=== PATIENT | female | born 1975 | race Caucasian/White ===

== ENCOUNTER 2023-02-17 07:55 | Emergency (ER) | payer OTHER, SELFPAY ==
--- NOTE | ~2023-02-17 | US_ITS ---
EXAMINATION: US VENOUS ULTRASOUND WITH DOPPLER LOWER EXTREMITY, LEFT CLINICAL INFORMATION: Left lower extremity pain and swelling. COMPARISON: None available. TECHNIQUE: Ultrasound of the deep veins is performed from the hip to the calf with compression sonography and color and pulse Doppler assessment. Spectral analysis with color-flow imaging is performed. FINDINGS: There is normal venous compression and respiratory variation and augmented flow. The visualized common femoral vein, superficial femoral vein, profunda femoral vein, popliteal vein, and the trifurcation region shows no evidence of deep venous thrombosis. There is no significant popliteal fossa cyst. US/US venous duplex LE LT IMPRESSION: No evidence for deep venous thrombosis in the visualized veins of the left lower extremity.
[2023-02-17 07:56] VITALS: BP 107/77; PULSE 72; RESP 18; TEMP 36.7; O2SAT 96; BMI 26.3
--- NOTE | 2023-02-17 08:41 | ED.EXTPRO ---
HPI - Extremity Problem General Chief complaint: Extremity Problem Stated complaint: ? L Leg Blood Clot Time Seen by Provider: 02/17/23 08:10 Source: patient Mode of arrival: ambulatory Limitations: no limitations History of Present Illness HPI Narrative: 47 yo female with hx of factor V Leiden on eliquis for 5 years has had one PE on it but reports compliance at this time presents with 1 week of LLE pain and feels her veins are bigger she wants to make sure she does not have a blood clot. SHe does not report CP/SOB. She feels she is bruising easier. Does not have narrow gauge engineer right now due to [facility] and has never heard of IVC filter. MD Complaint: extremity pain and extremity swelling Onset (ago): week(s) (1) Pain Consistency: constant Location: left and lower extremity Quality: aching Radiation: none Relieving factors: nothing Exacerbating factors: palpation Associated symptoms: other (feels she is bruising more) Context: other (clotting disorder) Related Data Allergies Allergy/AdvReac Type Severity Reaction Status Date / Time alprazolam [From XANAX] Allergy Unknown UNKNOWN Unverified 03/21/20 17:02 carisoprodol [From SOMA] Allergy Unknown UNKNOWN Unverified 03/21/20 17:02 cephalexin [From KEFLEX] Allergy Unknown UNKNOWN Unverified 03/21/20 17:02 codeine [CODEINE] Allergy Unknown HIVES Unverified 03/21/20 17:02 fluconazole [From DIFLUCAN] Allergy Unknown UNKNOWN Unverified 03/21/20 17:02 ibuprofen [IBUPROFEN] Allergy Unknown UNKNOWN Unverified 03/21/20 17:02 Iodinated Contrast Media Allergy Unknown HIVES Unverified 03/21/20 17:02 [CONTRAST, IV] ondansetron [ONDANSETRON] Allergy Unknown HIVES Unverified 03/21/20 17:02 propoxyphene Allergy Unknown ITCHING Unverified 03/21/20 17:02 [From DARVOCET-N 100] vancomycin [VANCOMYCIN] Allergy Unknown HIVES Unverified 03/21/20 17:02 Review of Systems Review of Systems: Constitutional : No Fever, No Chills Cardiovascular : No Chest Pain, No SOB Respiratory : No Cough, No Dyspnea Gastrointestinal : No Nausea, No Vomiting, No Diarrhea, No abdominal Pain Genitourinary : No Dysuria, No Hematuria Musculoskeletal : no joint pain, No Myalgias, No Joint Swelling, pos leg pain Skin : No Skin lacerations, No rash Neuro : No Weakness, No Numbness, No Loss of Consciousness, No Dizziness, No Headache Psych : No Anxiety/Panic, No Depression Heme/Lymph: pos easy bruising, no Lymphadenopathy All other systems reviewed and are negative [facility] Past Medical History Attestation statement: The following information was validated with the patient. Medical History Factor V Leiden Social History Social History (Updated 02/17/23 @ 09:00 by Diana Ma DO) Alcohol intake: never Patient Tobacco Use Status: Tobacco use Unknown Smoked in Last 30 Days: Yes Use of substances other than those prescribed or required for medical reasons: No Advance Directives: No Physical Exam Vital Signs: Vital Signs: Last Vital Signs Temp 98.1 F 02/17/23 07:56 Pulse 60 02/17/23 09:00 Resp 18 02/17/23 09:00 BP 109/72 02/17/23 09:00 Pulse Ox 97 02/17/23 09:00 O2 Del Method Room Air 02/17/23 09:00 BMI result Body Mass Index 26.3 Appearance: Alert. Oriented X3. No acute distress. Eyes: Pupils equal, round and reactive to light. ENT: Pharynx normal. Neck: Normal inspection. Neck supple. CVS: Normal heart rate and rhythm. Pulses normal. Respiratory: No respiratory distress. Breath sounds normal. Abdomen: Soft and nontender. Skin: Skin warm and dry. Normal skin color. Normal skin turgor. Extremities: L leg slightly swelling but not pitting, veins minimally engorged no sig bruising normal coloration no erythema or warmth SILT intact and both DP and PT pulses are 2+ Neuro: Oriented X 3. No motor deficit. No sensory deficit. Medical Decision Making Medical Decision Making MDM Narrative: 47 yo female with hx factor V leiden here with c/o L leg pain who is NV intact no signs of infection compliant with eliquis and worried about DVT she has no other symptoms - at this time will obtain basic labs and DVT study she has bounding pulses and compartments are soft and compressible doubt compartment syndrome and infection. Possible clot vs MSK pain. Differential Diagnosis Differential Diagnoses: The differential diagnosis associated with the presentation includes cramping, lyte abnormality, DVT Lab Data MDM Lab Attestation statement: I reviewed the patient's lab results. 02/17/23 08:40 02/17/23 08:40 Labs: Lab Results 02/17/23 02/17/23 Range/Units 08:40 08:40 WBC 8.6 (4.8-10.8) X10*3/uL RBC 4.06 L (4.20-5.50) X10*6/uL Hgb 12.6 (12.0-16.0) g/dl Hct 37.0 (37.0-47.0) % MCV 91.1 (80.0-98.0) fL MCH 31.0 (27.0-33.0) pg MCHC 34.1 (31.0-35.0) g/dl RDW 12.6 (11.0-16.0) % Plt Count 310 (160-400) X10*3/uL MPV 10.6 (9.4-12.3) fL Immature Gran % (Auto) 0.3 (0.0-0.4) % Neut % (Auto) 56.0 (45-73) % Lymph % (Auto) 35.1 (20-40) % Power % (Auto) 5.6 (2-11) % Eos % (Auto) 2.3 (0-4) % Baso % (Auto) 0.7 (0-2) % Lymph # (Auto) 3.0 (1.2-4.9) X10*3/uL Power # (Auto) 0.5 (0.1-1.2) X10*3/uL Eos # (Auto) 0.2 (0.0-0.4) X10*3/uL Baso # (Auto) 0.1 (0.0-0.2) X10*3/uL Abs Immat Gran (auto) 0.03 (0.00-0.03) X10*3/uL Absolute Neuts (auto) 4.8 (2.0-8.3) x10*3/uL Absolute Nucleated RBC 0.000 (0.0-0.012) X10*3/uL Nucleated RBC % (auto) 0.0 (0.0-0.2) /100WBC Sodium 136 (135-145) mmol/L Potassium 4.1 (3.3-5.1) mmol/L Chloride 106 (96-108) mmol/L Carbon Dioxide 24 (22-29) mmol/L Anion Gap 10 L (12-20) BUN 15 (9-16) mg/dL Creatinine 0.74 (0.5-1.4) mg/dL Estim Creat Clear Calc 73.4 Estimated GFR > 60 Random Glucose 95 (60-115) mg/dL Calcium 9.4 (8.4-10.2) mg/dL Total Bilirubin 0.1 (0.0-1.0) mg/dL Direct Bilirubin < 0.2 (0.0-0.5) mg/dL AST 13 (5-31) U/L ALT 25 (0-31) U/L Alkaline Phosphatase 47 (39-117) U/L Total Protein 6.7 (6.5-8.0) g/dL Albumin 3.9 (3.5-5.0) g/dL Independent Interpretation I performed an independent interpretation of an: Ultrasound (no DVT) Radiology Impression Discussion of test interpretation with radiology: I have reviewed the radiologist's reading. Discharge Plan Discharge Clinical Impression: Left leg pain Patient Disposition: Home, Self-Care Instructions: Leg Pain (ED) Additional Instructions: normal labs platelets and liver tests, kidney functions normal DVT study no blood clot seen continue your eliquis. return for chest pain, shortness of breath, worsening pain, discoloration of the leg, numbness or cold feeling call our narrow gauge engineer Referrals: Nikki Lind MD [Physician] - (call to schedule appointment)
[2023-02-17 08:43] LABS: MANUAL DIFF FLAG NO
[2023-02-17 08:45] LABS: Basophils Absolute Auto 0.1 X10*3/uL (0.0-0.2); Basophils Percent Auto 0.7 % (0-2); Eosinophils Absolute Auto 0.2 X10*3/uL (0.0-0.4); Eosinophils Percent Auto 2.3 % (0-4); Hemoglobin 12.6 g/dl (12.0-16.0); Imm Gran Abs Auto 0.03 X10*3/uL (0.00-0.03); Imm Gran Pct Auto 0.3 % (0.0-0.4); Lymphocytes Percent Auto 35.1 % (20-40); Mean Corpuscular HGB Conc 34.1 g/dl (31.0-35.0); Mean Corpuscular Volume 91.1 fL (80.0-98.0); Mean Platelet Volume 10.6 fL (9.4-12.3); Monocytes Absolute Auto 0.5 X10*3/uL (0.1-1.2); Monocytes Percent Auto 5.6 % (2-11); Neutrophils Absolute Auto 4.8 x10*3/uL (2.0-8.3); Platelet Count 310 X10*3/uL (160-400); Red Blood Count 4.06 X10*6/uL (4.20-5.50); Red Cell Distribution Width 12.6 % (11.0-16.0); White Blood Count 8.6 X10*3/uL (4.8-10.8)
[2023-02-17 09:00] VITALS: BP 109/72; PULSE 60; RESP 18; O2SAT 97
[2023-02-17 09:09] LABS: Alanine Aminotransferase 25 U/L (0-31); Albumin Level 3.9 g/dL (3.5-5.0); Alkaline Phosphatase 47 U/L (39-117); Anion Gap 10 (12-20); Aspartate Amino Transferase 13 U/L (5-31); Bilirubin Direct < 0.2 mg/dL (0.0-0.5); Bilirubin Total 0.1 mg/dL (0.0-1.0); Blood Urea Nitrogen 15 mg/dL (9-16); Calcium 9.4 mg/dL (8.4-10.2); Carbon Dioxide 24 mmol/L (22-29); Chloride 106 mmol/L (96-108); Creatinine Clr Calc Pharmacy 73.4; Estimated Glomerular Filt Rate > 60; Glucose Random 95 mg/dL (60-115); Potassium 4.1 mmol/L (3.3-5.1); Sodium 136 mmol/L (135-145); Total Protein 6.7 g/dL (6.5-8.0)
--- NOTE | 2023-02-17 09:22 | PC.NURSE ---
pt reports left lower leg pain from behind L. knee to mid calf x 1 wk. hx dvt + pe. no redness/swelling noted. +pulses BLE. pt denies cp/sob. awaiting imaging results. call michael within reach.
== END 2023-02-17 09:27 | disposition home or self-care (01) ==
PROVIDERS: Emergency Provider Emergency Medicine
DX: M79.605 Pain in left leg (principal); R60.0 Localized edema; Z79.899 Other long term (current) drug therapy; Z79.01 Long term (current) use of anticoagulants
CPT/HCPCS: 36415; 80048; 80076; 85025; 93971; 99284

== ENCOUNTER → 2023-03-26 12:55 | Outpatient (BNV) | payer OTHER, SELFPAY | PROVIDERS: PCP Registered Nurse Oncology; Visit Provider Internal Medicine Medical Oncology | DX: Z86.711 Personal history of pulmonary embolism (principal); Z79.01 Long term (current) use of anticoagulants | CPT/HCPCS: 99204; 99213 ==

== ENCOUNTER 2023-06-11 12:30 | Inpatient (IN) | payer OTHER, SELFPAY ==
[2023-06-11 12:45] VITALS: BP 119/85; PULSE 84; RESP 18; TEMP 36.2; O2SAT 99; BMI 27.6
--- NOTE | 2023-06-11 12:47 | ED.GENADULT ---
HPI - General Adult General Chief complaint: Anxiety Stated complaint: Off meds-needs eval Time Seen by Provider: 06/11/23 16:45 Source: patient Mode of arrival: ambulatory Limitations: no limitations History of Present Illness HPI narrative: 48 yo female with PMH of psychiatric issues as well as Factor V leiden on DOAC here with c/o severe depression and anxiety here with c/o not taking ativan for 1 month but vague as to why she is not able to take it. She then states she needs to talk to someone and put cocaine 4 days ago on her lips but didn't snort it. She states she is going to go catatonic again. She is all over the place and hard to follow. MD complaint: anxiety, depression Onset (ago): week(s) (2) Radiation: non-radiation Severity: moderate Quality: other (anxiety) Relieving factors: none Exacerbating factors: other Associated symptoms: other (anxiety) Treatments prior to arrival: none Related Data Home Medications Medication Instructions Recorded Confirmed apixaban 2.5 mg tablet (Eliquis) 2.5 mg PO BID 03/26/23 03/26/23 bisacodyl 10 mg rectal suppository 10 mg CO DAILY PRN constipation 03/26/23 03/26/23 cetirizine 10 mg tablet 10 mg PO DAILY 03/26/23 03/26/23 chlorhexidine gluconate 0.12 % 15 ml PO DAILY 03/26/23 03/26/23 mouthwash cholecalciferol (vitamin D3) 125 125 mcg PO DAILY 03/26/23 03/26/23 mcg (5,000 unit) tablet (Vitamin D3) dicyclomine 10 mg capsule 10 mg PO QID 03/26/23 03/26/23 doxazosin 2 mg tablet 2 mg PO BEDTIME 03/26/23 03/26/23 famotidine 20 mg tablet 20 mg PO BEDTIME 03/26/23 03/26/23 fluoxetine 10 mg capsule 10 mg PO QAM 03/26/23 03/26/23 fluticasone propionate 50 50 spray intranasal DAILY 03/26/23 03/26/23 mcg/actuation nasal spray,suspension lidocaine 5 % topical patch 1 patch topical QAM 03/26/23 03/26/23 lorazepam 1 mg tablet 1 mg PO BID PRN anxiety 03/26/23 03/26/23 mirtazapine 7.5 mg tablet 7.5 mg PO BEDTIME 03/26/23 03/26/23 ondansetron 4 mg disintegrating 4 mg PO Q8H PRN nausea 03/26/23 03/26/23 tablet pantoprazole 40 mg tablet,delayed 40 mg PO BID 03/26/23 03/26/23 release plecanatide 3 mg tablet (Trulance) 3 mg PO DAILY 03/26/23 03/26/23 pregabalin 200 mg capsule 200 mg PO TID 03/26/23 03/26/23 quetiapine 300 mg tablet 300 mg PO BEDTIME 03/26/23 03/26/23 quetiapine 400 mg tablet 400 mg PO BEDTIME 03/26/23 03/26/23 quetiapine 50 mg tablet 50 mg PO BID 03/26/23 03/26/23 sertraline 25 mg tablet 25 mg PO QAM 03/26/23 03/26/23 sertraline 50 mg tablet 50 mg PO DAILY 03/26/23 03/26/23 Previous Rx's Medication Instructions Recorded metronidazole 0.75 % topical gel 1 appl topical BEDTIME #7 grams 03/26/23 metronidazole 0.75 % (37.5 mg/5 1 appful vaginal DAILY #10 grams 03/29/23 gram) vaginal gel metronidazole 0.75 % (37.5 mg/5 1 appful vaginal DAILY #45 grams 05/28/23 gram) vaginal gel Allergies Allergy/AdvReac Type Severity Reaction Status Date / Time alprazolam [From XANAX] Allergy Unknown UNKNOWN Verified 06/11/23 12:44 carisoprodol [From SOMA] Allergy Unknown UNKNOWN Verified 06/11/23 12:44 cephalexin [From KEFLEX] Allergy Unknown UNKNOWN Verified 06/11/23 12:44 codeine [CODEINE] Allergy Unknown HIVES Verified 06/11/23 12:44 fluconazole [From DIFLUCAN] Allergy Unknown UNKNOWN Verified 06/11/23 12:44 ibuprofen [IBUPROFEN] Allergy Unknown UNKNOWN Verified 06/11/23 12:44 ondansetron [ONDANSETRON] Allergy Unknown HIVES Verified 06/11/23 12:44 propoxyphene Allergy Unknown ITCHING Verified 06/11/23 12:44 [From DARVOCET-N 100] vancomycin [VANCOMYCIN] Allergy Unknown HIVES Verified 06/11/23 12:44 Review of Systems Review of Systems: Constitutional : No Fever, No Chills ENT/Mouth : No Ear Pain, No Nasal Congestion, No sore throat Eyes: No Eye Pain, No Swelling, No Redness Cardiovascular : No Chest Pain, No SOB Respiratory : No Cough, No Sputum, No Dyspnea Gastrointestinal : No Nausea, No Vomiting, No Diarrhea, No Hematochezia, No Melena Genitourinary : No Dysuria, No Urinary Frequency, No Hematuria Musculoskeletal : No Myalgias Skin : No Skin Lesions, No rash Neuro : No Weakness, No Numbness, No Paresthesias, No Dizziness, No Headache Psych : positive Anxiety, positive Depression, no SI/HI Heme/Lymph: No Lymphadenopathy Endocrine : No Polyuria, No Polydipsia All other systems reviewed and are negative [facility] Past Medical History Attestation statement: The following information was validated with the patient. Medical History Anxiety Dilatation, esophagus, congenital Factor V Leiden Family History Family History (Updated 03/26/23 @ 13:11 by Chace Day) Father Throat cancer Social History Social History Household Members: Friend(s) Alcohol intake: current Alcohol intake frequency: a few times a month Alcohol type: beer and hard liquor Patient Tobacco Use Status: Tobacco use Unknown Substance Use Type: Crack/Cocaine service: No Current occupational status: disabled Physical Exam ED Vital Signs: Vital Signs - 24 hr 06/11/23 12:45 Temperature 97.2 F Pulse Rate 84 Respiratory Rate 18 Blood Pressure 119/85 Pulse Oximetry 99 Oxygen Delivery Method Room Air BMI result Body Mass Index 27.6 Appearance: Alert. Oriented X3. No acute distress. rapid speech, pressured, very animated, vague in answers at times Eyes: Pupils equal, round and reactive to light. ENT: Pharynx normal. Neck: Normal inspection. Neck supple. CVS: Normal heart rate and rhythm. Pulses normal. Respiratory: No respiratory distress. Breath sounds normal. Abdomen: Soft and non-tender. Skin: Skin warm and dry. Normal skin color. Normal skin turgor. Extremities: No lower extremity edema. No calf ttp Neuro: Oriented X 3. No motor deficit. No sensory deficit. CN2-12 intact Course Course Course Narrative: RME- 48 year old female presents frequesting a psych consult. She reports that she has been off of her meds for about a month because her prescriber dropped me. She complains of worsening depression, anxiety. History of catatonia requiring inpatient admission. Plan for labs, medical clearance Reevaluation(s) Reevaluation #1: Physician observation started at 514pm. Patient placed in physician observation because the patient needed more time for CARE team to assess the need for psych admission. At the time observation was started the patient's vitals were stable, patient is alert and oriented but slightly anxious Neuro: nonfocal, CV RRR, Lungs clear Medical Decision Making Medical Decision Making MDM Narrative: 48 yo female with PMH of psychiatric issues as well as Factor V leiden on DOAC here with c/o asking for ativan and stating no one will rx it for her including GI, hematology, PCP, psych doctor. She states she is now going to need to go inpatient to prevent catatonia. She seems very manic. Will involve CARE team. Differential Diagnosis Differential Diagnoses: The differential diagnosis associated with the presentation includes drug seeking behaviors, manic behaviors Admission/Observation Consideration of admission/observation: Escalation of care including admission/observation considered observe until CARE team sees patient Consult Healthcare Provider Management of the patient was discussed with: Behavioral Health Provider Lab Data [facility] Lab Attestation statement: I reviewed the patient's lab results. 06/11/23 14:25 06/11/23 14:25 Labs: Lab Results 06/11/23 Range/Units 14:25 WBC 8.2 (4.8-10.8) X10*3/uL RBC 4.16 L (4.20-5.50) X10*6/uL Hgb 13.1 (12.0-16.0) g/dl Hct 38.9 (37.0-47.0) % MCV 93.5 (80.0-98.0) fL MCH 31.5 (27.0-33.0) pg MCHC 33.7 (31.0-35.0) g/dl RDW 12.9 (11.0-16.0) % Plt Count 344 (160-400) X10*3/uL MPV 10.2 (9.4-12.3) fL Immature Gran % (Auto) 0.6 H (0.0-0.4) % Neut % (Auto) 55.3 (45-73) % Lymph % (Auto) 35.5 (20-40) % Reeves % (Auto) 4.9 (2-11) % Eos % (Auto) 3.0 (0-4) % Baso % (Auto) 0.7 (0-2) % Lymph # (Auto) 2.9 (1.2-4.9) X10*3/uL Reeves # (Auto) 0.4 (0.1-1.2) X10*3/uL Eos # (Auto) 0.3 (0.0-0.4) X10*3/uL Baso # (Auto) 0.1 (0.0-0.2) X10*3/uL Abs Immat Gran (auto) 0.05 H (0.00-0.03) X10*3/uL Absolute Neuts (auto) 4.5 (2.0-8.3) x10*3/uL Absolute Nucleated RBC 0.000 (0.0-0.012) X10*3/uL Nucleated RBC % (auto) 0.0 (0.0-0.2) /100WBC Sodium 142 (135-145) mmol/L Potassium 3.9 (3.3-5.1) mmol/L Chloride 107 (96-108) mmol/L Carbon Dioxide 28 (22-29) mmol/L Anion Gap 11 L (12-20) BUN 17 H (9-16) mg/dL Creatinine 0.76 (0.5-1.4) mg/dL Estim Creat Clear Calc 72.4 Estimated GFR > 60 Random Glucose 83 (60-115) mg/dL Calcium 9.6 (8.4-10.2) mg/dL Total Bilirubin 0.1 (0.0-1.0) mg/dL AST 16 (5-31) U/L ALT 21 (0-31) U/L Alkaline Phosphatase 76 (39-117) U/L Total Protein 7.8 (6.5-8.0) g/dL Albumin 4.4 (3.5-5.0) g/dL Salicylates < 5.0 L (15-30) mg/dL Acetaminophen < 3 (<30) mcg/mL Ethyl Alcohol < 10 mg/dL COVID-19 ([facility]ISA) Negative (Negative) COVID-19 Clin Com See Note External Record Review External record reviewed: Inpatient record Discharge Plan Discharge Clinical Impression: Acute anxiety Patient Disposition: Still a Patient Prescriptions: No Action metronidazole 0.75 % (37.5mg/5 gram) Gel 1 appful VAGINAL DAILY Qty: 45 4RF quetiapine 300 mg tablet 300 mg PO BEDTIME cetirizine 10 mg tablet 10 mg PO DAILY famotidine 20 mg tablet 20 mg PO BEDTIME bisacodyl 10 mg suppository 10 mg CO DAILY PRN (Reason: constipation) pantoprazole 40 mg tablet,delayed release (DR/EC) 40 mg PO BID lidocaine 5 % adhesive patch,medicated 1 patch topical QAM fluoxetine 10 mg capsule 10 mg PO QAM sertraline 25 mg tablet 25 mg PO QAM lorazepam 1 mg tablet 1 mg PO BID PRN (Reason: anxiety) ondansetron 4 mg tablet,disintegrating 4 mg PO Q8H PRN (Reason: nausea) fluticasone propionate 50 mcg/actuation spray,suspension 50 spray intranasal DAILY sertraline 50 mg tablet 50 mg PO DAILY dicyclomine 10 mg capsule 10 mg PO QID doxazosin 2 mg tablet 2 mg PO BEDTIME mirtazapine 7.5 mg tablet 7.5 mg PO BEDTIME pregabalin 200 mg capsule 200 mg PO TID chlorhexidine gluconate 0.12 % mouthwash 15 ml PO DAILY quetiapine 50 mg tablet 50 mg PO BID quetiapine 400 mg tablet 400 mg PO BEDTIME cholecalciferol (vitamin D3) [Vitamin D3] 125 mcg (5,000 unit) tablet 125 mcg PO DAILY Eliquis 2.5 mg tablet 2.5 mg PO BID Trulance 3 mg tablet 3 mg PO DAILY metronidazole 0.75 % Gel 1 appl TOPICAL BEDTIME Qty: 7 2RF Rx Instructions: For vaginal application for 7 days. metronidazole 0.75 % (37.5mg/5 gram) Gel 1 appful VAGINAL DAILY Qty: 10 3RF
[2023-06-11 14:36] LABS: MANUAL DIFF FLAG NO
[2023-06-11 14:39] LABS: Basophils Absolute Auto 0.1 X10*3/uL (0.0-0.2); Basophils Percent Auto 0.7 % (0-2); Eosinophils Absolute Auto 0.3 X10*3/uL (0.0-0.4); Hematocrit 38.9 % (37.0-47.0); Hemoglobin 13.1 g/dl (12.0-16.0); Imm Gran Abs Auto 0.05 X10*3/uL (0.00-0.03); Imm Gran Pct Auto 0.6 % (0.0-0.4); Lymphocytes Absolute Auto 2.9 X10*3/uL (1.2-4.9); Lymphocytes Percent Auto 35.5 % (20-40); Mean Corpuscular HGB Conc 33.7 g/dl (31.0-35.0); Mean Corpuscular Hemoglobin 31.5 pg (27.0-33.0); Mean Corpuscular Volume 93.5 fL (80.0-98.0); Mean Platelet Volume 10.2 fL (9.4-12.3); Monocytes Absolute Auto 0.4 X10*3/uL (0.1-1.2); Monocytes Percent Auto 4.9 % (2-11); Neutrophils Absolute Auto 4.5 x10*3/uL (2.0-8.3); Neutrophils Percent Auto 55.3 % (45-73); Platelet Count 344 X10*3/uL (160-400); Red Blood Count 4.16 X10*6/uL (4.20-5.50); Red Cell Distribution Width 12.9 % (11.0-16.0); White Blood Count 8.2 X10*3/uL (4.8-10.8)
[2023-06-11 14:58] LABS: Acetaminophen LAB < 3 mcg/mL (<30); Salicylate < 5.0 mg/dL (15-30)
[2023-06-11 14:59] LABS: Alanine Aminotransferase 21 U/L (0-31); Albumin Level 4.4 g/dL (3.5-5.0); Alkaline Phosphatase 76 U/L (39-117); Anion Gap 11 (12-20); Aspartate Amino Transferase 16 U/L (5-31); Bilirubin Total 0.1 mg/dL (0.0-1.0); Blood Urea Nitrogen 17 mg/dL (9-16); Calcium 9.6 mg/dL (8.4-10.2); Carbon Dioxide 28 mmol/L (22-29); Chloride 107 mmol/L (96-108); Creatinine Clr Calc Pharmacy 72.4; Estimated Glomerular Filt Rate > 60; Ethanol < 10 mg/dL; Glucose Random 83 mg/dL (60-115); Potassium 3.9 mmol/L (3.3-5.1); Sodium 142 mmol/L (135-145); Total Protein 7.8 g/dL (6.5-8.0)
[2023-06-11 15:05] LABS: COVID-19 Test Negative (Negative); IDNOW Serial# 08D9AD1C
--- OUTSIDE RECORDS SUMMARY | 2023-06-11 16:33 | XMS_ITS | Continuity of Care Document ---
Author Name Unknown Organization [facility] Address [address] [place] [address]- Care Team Providers Care Solar Photovoltaic Crew Lead Name Role Phone Yobani MC, Sharon Bryant Primary Care Physician [phone] Encounter [facility] [place] Date(s): 04/30/23 - 05/30/23 [facility] [address] [place] [address]- Allergies, Adverse Reactions, Alerts Substance Reaction Severity Status codeine 1 hives Active ibuprofen 2 Active vancomycin hives Active zolpidem Unknown Active Soma Active Estrogens Active Xanax Active Diflucan Active Darvocet N 100 itching Active 1pt confirms has tolerated Percocet in the past 2Per patient interview, does not like to take this medication. No allergy reported by patient. Immunizations Given and Recorded Vaccine Date Status Refusal Reason SARS-CoV-2 (COVID-19) mRNA-1273 vaccine 10/12/21 R ecorded tetanus/diphtheria/pertussis, acel(Tdap) 09/02/21 Given influenza virus vaccine, inactivated 1 06/10/21 Gi hector influenza virus vaccine, inactivated 04/04/14 Emile rded Influenza Virus Vaccine (oldterm) 2 06/11/20 Recor ded pneumococcal 23-valent vaccine 01/19/16 Given 1Result Comment: 11447-293-14 FLU 2Result Comment: [facility] Medications acetaminophen 500 mg oral capsule 2 capsule = 1,000 mg, By Mouth, Every 4 hours, PRN for pain, # 100 capsule, 3 Refills, Maintenance,05/26/23 15:37:00 EST, [facility], [id number] Partial fill upon patient request if the prescription is for a schedule II opioid drug., 150, cm, 0... Start Date: 05/26/23 Status: Ordered Ativan 1 mg oral tablet 1 tablet = 1 mg, By Mouth, 2 times a day, PRN as needed for anxiety, 0 Refills, Maintenance, 08/23/19 15:12:00 EST Start Date: 08/23/19 Status: Ordered bisacodyl 10 mg rectal suppository 1 supp, Rectally, Daily, TAKE NEEDED FOR CONSTIPATION, # 30 supp, 1 Refills, Maintenance, 03/31/23 14:57:00 EDT, [facility], 150, cm, 03/21/23 13:00:00 EDT, Height, 61.5, kg, 01/28/23 10:04:00 EDT, Dry Weight Start Date: 03/31/23 Stop Date: 04/30/23 Status: Ordered cetirizine 10 mg oral tablet 1 tablet, By Mouth, 2 times a day, # 180 tablet, 1 Refills, Maintenance, 03/29/23 18:18:00 EDT, [facility], 150, cm, 03/21/23 13:00:00 EDT, Height, 61.5, kg, 01/28/23 10:04:00 EDT, Dry Weight Start Date: 03/29/23 Status: Ordered chlorhexidine topical 0.12% liquid 473 mL, 0 Refill(s), SWISH BY MOUTH WITH 15 ML (UNDILUTED) FOR 30 SECONDS, THEN SPIT (AFTER BREAKFAST AND BEFORE BEDTIME), 0 Refills, 03/20/23 19:56:00 EDT, Partial fill upon patient request if the prescription is for a schedule II opioid drug. Start Date: 03/20/23 Status: Ordered cloNIDine 0.1 mg oral tablet 0.1 mg, 1, tablet, By Mouth, 2 times a day, # 60 tablet, Refills 2, Tot. Refills 2, Maintenance, 01/13/23 16:39:00 EDT, Route to Pharmacy Electronically, [facility]/pharmacy #[id number], Partial fill upon patientrequest if the prescription is for a schedule II op... Start Date: 01/13/23 Status: Ordered [facility] PURELAX POWDER, See Instructions, # 1,020 Gm, 0 Refills, Maintenance, DISSOLVE 17 GRAMS (1 CAPFUL) IN WATER & DRINK TWICE A DAY FOR 30 DAYS, 02/09/23 18:18:00 EDT, 163, cm, 02/04/23 16:43:00 EDT, Height, 61.5, kg, 01/28/23 10:04:00 EDT, Dry Weight Start Date: 02/09/23 Status: Ordered [facility], See Instructions, # 1,020 Gm, 3 Refills, Maintenance, DISSOLVE 17 GRAMS (1 CAPFUL) IN WATER & DRINK TWICE A DAY FOR 30 DAYS, 03/31/23 14:57:00 EDT, 150, cm, 03/21/23 13:00:00 EDT, Height, 61.5, kg, 01/28/23 10:04:00 EDT, Dry Weight Start Date: 03/31/23 Status: Ordered [facility], See Instructions, # 1,020 Gm, 0 Refills, Maintenance, 17 GM BY MOUTH 2 TIMES A DAY, FOR 30 DAYS. DISSOLVE IN WATER BEFORE TAKING, 12/28/22 17:36:00 EDT, 150, cm, 12/28/22 13:59:00EDT, Height, 59.2, kg, 12/14/22 10:22:00 EDT, Dry W... Start Date: 12/28/22 Status: Ordered dicyclomine 10 mg oral capsule 1 capsule, By Mouth, 4 times a day, # 360 capsule, 2 Refills, Maintenance, 11/18/22 20:04:00 EDT, [facility], 150, cm, 10/16/22 16:20:00 EDT, Height, 55.3, kg, 09/10/22 10:42:00 EST, Dry Weight Start Date: 11/18/22 Status: Ordered doxazosin 2 mg oral tablet 30 each, TAKE 1 TABLET (2 MG TOTAL) BY MOUTH NIGHTLY AT BEDTIME., Refills 0, 10/18/22 8:57:00 EDT, Partial fill upon patient request if the prescription is for a schedule II opioid drug. Start Date: 10/18/22 Status: Ordered Eliquis 2.5 mg oral tablet 1 tablet, By Mouth, 2 times a day, # 60 tablet, 11 Refills, Maintenance, 03/18/23 8:41:00 EDT, 150,cm, 03/18/23 8:12:00 EDT, Height, 61.5, kg, 01/28/23 10:04:00 EDT, Dry Weight Start Date: 03/18/23 Status: Ordered famotidine 20 mg oral tablet 1, tablet, By Mouth, Daily at bedtime, # 90 tablet, Refills 3, Maintenance, 01/12/23 9:41:00 EDT, Route to Pharmacy Electronically, [facility] STORE 72789, 150, cm, 01/08/23 14:57:00 EDT, Height, 59.2, kg, 12/14/22 10:22:00 EDT, Dry Weight Start Date: 01/12/23 Status: Ordered fluticasone 50 mcg/inh nasal spray See Instructions, SPRAY 1 SPRAY INTO EACH NOSTRIL TWICE A DAY, # 48 mL, 1 Refills, Maintenance, 04/15/23 13:54:00 EDT, [facility], 90, SPRAY 1 SPRAY INTO EACH NOSTRIL TWICE A DAY, 150, cm, 03/21/23 13:00:00 EDT, Height, 61.5, kg, 01/28/23 10:04:0... Start Date: 04/15/23 Status: Ordered lidocaine 5% topical film 1, Topically, Daily, apply patch in am and remove prior to bed, # 30 patch, 3 Refills, Maintenance,10/16/22 16:35:00 EDT, Patch, [facility]/pharmacy #[id number], 1 Topically Daily,Instr:apply patch in am and remove prior to bed, 150, cm, 10/16/22 16:20:00 EDT, He... Start Date: 10/16/22 Status: Ordered Lyrica CR By Mouth, Daily before dinner, 0 Refills, Maintenance, 01/13/23 16:32:00 EDT, Partial fill upon patient request if the prescription is for a schedule II opioid drug. Start Date: 01/13/23 Status: Ordered mirtazapine 7.5 mg oral tablet 15 each, TAKE 1 TABLET BY MOUTH NIGHTLY AT BEDTIME., 0 Refills, 10/18/22 8:58:00 EDT, Partial fill upon patient request if the prescription is for a schedule II opioid drug. Start Date: 10/18/22 Status: Ordered ondansetron 8 mg oral tablet, disintegrating 1 tablet = 8 mg, By Mouth, 3 times a day, # 15 tablet, 5 Refills, Maintenance, 05/06/23 12:01:00 EDT, DIS Tablet, [facility]/pharmacy #2024, 150, cm, 03/21/23 13:00:00 EDT, Height, 61.5, kg, 01/28/23 10:04:00 EDT, Dry Weight Start Date: 05/06/23 Stop Date: 06/05/23 Status: Ordered pantoprazole 40 mg oral delayed release tablet 1 tablet, By Mouth, 2 times a day, # 180 tablet, 3 Refills, Maintenance, 09/10/22 11:25:00 EST, 150, cm, 09/10/22 10:42:00 EST, Height, 55.3, kg, 09/10/22 10:42:00 EST, Dry Weight Start Date: 09/10/22 Stop Date: 09/05/23 Status: Ordered QUEtiapine 300 mg oral tablet TAKE 1 TABLET BY MOUTH EVERY DAY IN THE EVENING Start Date: 07/26/20 Status: Ordered QUEtiapine 50 mg oral tablet 30 each, TAKE 1 TABLET BY MOUTH EVERY DAY, 0 Refills, 10/18/22 8:58:00 EDT, Partial fill upon patient request if the prescription is for a schedule II opioid drug. Start Date: 10/18/22 Status: Ordered sertraline 50 mg oral tablet 30 each, 0 Refill(s), TAKE 1 TABLET BY MOUTH EVERY DAY, 0 Refills, 03/20/23 19:57:00 EDT, Partial fill upon patient request if the prescription is for a schedule II opioid drug. Start Date: 03/20/23 Status: Ordered Trulance 3 mg oral tablet 1 tablet = 3 mg, By Mouth, Daily, # 90 tablet, 3 Refills, Maintenance, 04/01/23 13:35:00 EDT, [facility]/pharmacy #[id number], Partial fill upon patient request if the prescription is for a schedule II opioid drug., 150, cm, 12/28/22 13:59:00 EDT, Height, 59.2, kg... Start Date: 04/01/23 Status: Ordered Problem List Condition Confirmation Course Effective Dates Status Health St atus Informant Anxiety Confirmed Active Anxiety Confirmed Active Yeast infection of the vagina Confirmed Active Cyst of ovary Confirmed Active Depression Confirmed Active Fibromyalgia Confirmed Active GERD (gastroesophageal reflux disease) Confirmed Active Heterozygous factor V Leiden mutation Confirmed Active IBS (irritable bowel syndrome) Confirmed Active Knee pain 1, 2 Confirmed Active Migraine headache Confirmed Active Nonpsychotic mental disorder, unspecified Confirmed Active Pneumothorax Confirmed Active Pulmonary neoplasm embolism Confirmed Active Recurrent major depression Confirmed 10/01/22 Active Seasonal allergies Confirmed Active Esophageal stricture Confirmed Active 1DrDonny Shepherd recommends Vascular consult - order placed for this. 2s/p chondroplasty with Dr. Shepherd Social History Social History Type Response Smoking Status Current some day smo ker entered on: 01/21/15 Sex Patient Care team information Care Team Personnel Name: Katey Benavides RN Position: S RN Member Role: Primary Care Nurse Name: Sharon Hilton NP Position: [facility] Associate Professional Member Role: PCP Address: Address: [address] [place] [address]- Name: Liat FIELDS, Lo Position: S RN Member Role: Primary Care Nurse Care Team Related Persons Name: KOLBY ALVAREZ Address: home [address] [place] [address] Name: GARY CLARK Address: home [address] [place] [address] Name: MAR EWING Address: [place] [address] Name: RANDALL THAYER Name: ROXANN SUAREZ Address: home [address] [place] [address] Name: MC SUAREZ Address: [address] [address]
--- OUTSIDE RECORDS SUMMARY | 2023-06-11 16:35 | XMS_ITS | Continuity of Care Document ---
Author Name Unknown Organization [facility] Address [address] [place] [address]- Care Team Providers Care Architectural Inspector Name Role Phone Yobani MC, Sharon Bryant Primary Care Physician [place] [facility] [place] 04[place]18/23 [facility] [address] [place] [phone]- Allergies, Adverse Reactions, Alerts Substance Reaction Severity Status codeine 1 hives Active ibuprofen 2 Active vancomycin hives Active zolpidem Unknown Active Xanax Active Soma Active Diflucan Active Darvocet N 100 itching Active Estrogens Active 1pt confirms has tolerated Percocet in [...] pneumococcal 23-valent vaccine 01/19/16 Given 1Result Comment: [id number] FLU 2Result Comment: [facility] Medications acetaminophen 500 mg oral capsule 2 capsule = 1,000 mg, By Mouth, Every 4 hours, PRN for pain, # 100 capsule, 3 Refills, Maintenance,03/18/23 8:41:00 EDT, [facility]apsule, [id number], Partial fill upon patient request if the prescription is for a schedule II opioid drug., 150, cm, 09... Start Date: 03/18/23 Status: Ordered Ativan 1 mg oral tablet 1 tablet = 1 mg, By Mouth, 2 times a day, PRN as needed for anxiety, 0 Refills, Maintenance, 08/23/19 15:12:00 EST Start Date: 08/23/19 Status: Ordered bisacodyl 10 mg rectal suppository 1 supp, Rectally, Daily, TAKE NEEDED FOR CONSTIPATION, # 30 supp, 1 Refills, Maintenance, 03/31/23 14:57:00 EDT, [facility], 150, cm, 03/21/23 13:00:00 EDT, Height, 61.5, kg, 01/28/23 10:04:00 EDT, Dry Weight Start Date: 03/31/23 Stop Date: 04/30/23 Status: Ordered cetirizine 10 mg oral tablet 1 tablet, By Mouth, 2 times a day, # 180 tablet, 1 Refills, Maintenance, 03/29/23 18:18:00 EDT, [facility], 150, cm, 03/21/23 13:00:00 EDT, Height, 61.5, [...] 01/13/23 16:39:00 EDT, Route to Pharmacy Electronically, [facility]/pharmacy #[id number], Partial fill upon patientrequest if the prescription is for a schedule II op... Start Date: 01/13/23 Status: Ordered [facility] PURELAX POWDER [facility] PURELAX POWDER, See Instructions, # 1,020 Gm, 0 Refills, Maintenance, DISSOLVE 17 GRAMS (1 CAPFUL) IN WATER & DRINK TWICE A DAY FOR 30 DAYS, 02/09/23 18:18:00 EDT, 163, cm, 08/03/23 16:43:00 EDT, Height, 61.5, kg, 01/28/23 10:04:00 [...] Refills, Maintenance, 11/18/22 20:04:00 EDT, [facility], 150, cm, 10/16/22 16:20:00 EDT, Height, 55.3, [...] 01/12/23 9:41:00 EDT, Route to Pharmacy Electronically, [facility] STORE 61843, 150, cm, 01/08/23 14:57:00 EDT, Height, 59.2, kg, 12/14/22 10:22:00 EDT, Dry Weight Start Date: 01/12/23 Status: Ordered fluticasone 50 mcg/inh nasal spray See Instructions, SPRAY 1 SPRAY INTO EACH NOSTRIL TWICE A DAY, # 48 mL, 1 Refills, Maintenance, 04/15/23 13:54:00 EDT, [facility] STORE 43219, 90, SPRAY 1 SPRAY INTO EACH NOSTRIL TWICE A DAY, 150, cm, 03/21/23 13:00:00 EDT, Height, 61.5, kg, 01/28/23 10:04:0... Start Date: 04/15/23 Status: Ordered lidocaine 5% topical film 1, Topically, Daily, apply patch in am and remove prior to bed, # 30 patch, 3 Refills, Maintenance,10/16/22 16:35:00 EDT, Patch, [facility]/pharmacy #2025, 1 Topically Daily,Instr:apply patch in [...] 1 tablet = 8 mg, By Mouth, Every 8 hours, PRN Nausea, # 12 tablet, 0 Refills, Soft Stop, 01/28/23 9:24:00 EDT, DIS Tablet, [facility]/pharmacy #2025, Partial fill upon patient request if the prescription isfor a schedule II opioid drug., 163, cm, 01/28/23 6... Start Date: 01/28/23 Status: Ordered ondansetron 8 mg oral tablet, disintegrating 1 tablet = 8 mg, By Mouth, 3 times a day, # 15 tablet, 5 Refills, Maintenance, 12/28/22 17:24:00 EDT, DIS Tablet, [facility]/pharmacy #2025, 150, cm, 12/28/22 13:59:00 EDT, Height, 59.2, kg, 12/14/22 10:22:00 EDT, Dry Weight Start Date: 12/28/22 Stop Date: 01/27/23 Status: Ordered pantoprazole 40 mg oral delayed [...] tablet, 3 Refills, Maintenance, 04/01/23 13:35:00 EDT, [facility], Partial fill upon patient request if the [...] allergies Confirmed Active Esophageal stricture Confirmed Active 1Dr. Cora recommends Vascular consult - order placed for this. 2s/p chondroplasty with Dr. Shepherd Social History Social History Type Response Smoking Status Current some day smo ker entered on: 01/21/15 Sex Patient Care team information Care Team Personnel Name: Katey Benavides RN Position: [facility] RN Member Role: Primary Care Nurse Name: Sharon Hilton NP Position: [facility] PCO Associate Professional Member Role: PCP Address: Address: [address] [place] [address]- Name: Liat FIELDS, Lo Position: S RN Member Role: Primary Care Nurse Care Team Related Persons Name: ANTONIO KOLBY Address: home [address] [place] [address] Name: GARY CLARK Address: home [address] [place], [place] Name: MAR EWING Address: [place], [place] Name: RANDALL THAYER Name: ROXANN SUAREZ Address: home [address] [place] [address] Name: MC SUAREZ Address: [address] [address]
--- OUTSIDE RECORDS SUMMARY | 2023-06-11 16:35 | XMS_ITS | Continuity of Care Document ---
Author Name Unknown Organization [facility] Medicine Address [address] [place] [address]- Care Team Providers Care Writing Tutor Name Role Phone Yobani MC, Sharon Bryant Primary Care Physician [phone] Encounter [facility] [place] Date(s): 03/19/23 - 04/18/23 [facility] [address] [place] [address]- Allergies, Adverse Reactions, Alerts Substance Reaction Severity [...] pneumococcal 23-valent vaccine 01/19/16 Given 1Result Comment: 02487-716-46 FLU 2Result Comment: [facility] Medications acetaminophen [...] Refills, Maintenance, 03/31/23 14:57:00 EDT, [facility], 150, cm, 03/21/23 13:00:00 EDT, Height, 61.5, kg, 01/28/23 10:04:00 EDT, Dry Weight Start Date: 03/31/23 Stop Date: 04/30/23 Status: Ordered cetirizine 10 mg oral tablet 1 tablet, By Mouth, 2 times a day, # 180 tablet, 1 Refills, Maintenance, 03/29/23 18:18:00 EDT, [facility], 150, cm, 03/21/23 13:00:00 EDT, Height, 61.5, [...] 01/13/23 16:39:00 EDT, Route to Pharmacy Electronically, [facility]/pharmacy #[id number], Partial fill upon patientrequest if the prescription is for a schedule II op... Start Date: 01/13/23 Status: Ordered [facility] PURELAX POWDER [facility] PURELAX POWDER, See Instructions, # 1,020 Gm, [...] Refills, Maintenance, 11/18/22 20:04:00 EDT, [facility], 150, cm, 10/16/22 16:20:00 EDT, Height, 55.3, [...] 01/12/23 9:41:00 EDT, Route to Pharmacy Electronically, [facility] STORE 73081, 150, cm, 01/08/23 14:57:00 EDT, Height, 59.2, kg, 12/14/22 10:22:00 EDT, Dry Weight Start Date: 01/12/23 Status: Ordered fluticasone 50 mcg/inh nasal spray See Instructions, SPRAY 1 SPRAY INTO EACH NOSTRIL TWICE A DAY, # 48 mL, 1 Refills, Maintenance, 04/15/23 13:54:00 EDT, [facility] STORE 73434, 90, SPRAY 1 SPRAY INTO EACH NOSTRIL TWICE A DAY, 150, cm, 03/21/23 13:00:00 EDT, Height, 61.5, kg, 01/28/23 10:04:0... Start Date: 04/15/23 Status: Ordered lidocaine 5% topical film 1, Topically, Daily, apply patch in am and remove prior to bed, # 30 patch, 3 Refills, Maintenance,10/16/22 16:35:00 EDT, Patch, [facility]/pharmacy #2025, 1 Topically Daily,Instr:apply patch in am [...] Soft Stop, 01/28/23 9:24:00 EDT, DIS Tablet, [facility]/pharmacy #2025, Partial fill upon patient request if the prescription isfor a schedule II opioid drug., 163, cm, 01/28/23 6... Start Date: 01/28/23 Status: Ordered ondansetron 8 mg oral tablet, disintegrating 1 tablet = 8 mg, By Mouth, 3 times a day, # 15 tablet, 5 Refills, Maintenance, 12/28/22 17:24:00 EDT, DIS Tablet, [facility]/pharmacy #2025, 150, cm, 12/28/22 13:59:00 EDT, Height, [...] Team Personnel Name: Katey Benavides RN Position: [facility] RN Member Role: Primary Care Nurse Name: Sharon Hilton NP Position: [facility] PCO Associate Professional Member Role: PCP Address: Address: [address] [place] [address]- Name: Liat FIELDS, Lo Position: S RN Member Role: Primary Care Nurse Care Team Related Persons Name: ANTONIO KOLBY Address: home [address] [place] [address] Name: GARY CLARK Address: home [address] [place], [place] Name: MAR EWING Address: [place], [place] Name: RANDALL THAYER Name: ROXANN SUAREZ Address: home [address] [place] [address] Name: MC SUAREZ Address: [address] [address]
--- OUTSIDE RECORDS SUMMARY | 2023-06-11 16:35 | XMS_ITS | Continuity of Care Document ---
Author Name Unknown Organization [facility] Medicine Address [address] [place] [address]- Care Team Providers Care Senior Sql Server Dba Name Role Phone Yobani MC, Sharon Bryant Primary Care Physician [phone] Encounter [facility] [place] Date(s): 03/18/23 - 04/17/23 [facility] Medicine [address] [place] [address]- Attending Physician: Annamarie Maza Admitting Physician: AdmtrAnnamarie Referring Physician: Admtr, Ar8 Allergies, Adverse Reactions, Alerts Substance Reaction Severity [...] pneumococcal 23-valent vaccine 01/19/16 Given 1Result Comment: 66186-182-95 FLU 2Result Comment: [facility] Medications acetaminophen [...] Refills, Maintenance, 03/31/23 14:57:00 EDT, [facility], 150, cm, 03/21/23 13:00:00 EDT, Height, 61.5, kg, 01/28/23 10:04:00 EDT, Dry Weight Start Date: 03/31/23 Stop Date: 04/30/23 Status: Ordered cetirizine 10 mg oral tablet 1 tablet, By Mouth, 2 times a day, # 180 tablet, 1 Refills, Maintenance, 03/29/23 18:18:00 EDT, [facility], 150, cm, 03/21/23 13:00:00 EDT, Height, 61.5, [...] 01/13/23 16:39:00 EDT, Route to Pharmacy Electronically, [facility]/pharmacy #[id number], Partial fill upon patientrequest if the prescription is for a schedule II op... Start Date: 01/13/23 Status: Ordered [facility] PURELAX POWDER [facility] PURELAX POWDER, See Instructions, # 1,020 [...] Refills, Maintenance, 11/18/22 20:04:00 EDT, [facility], 150, cm, 10/16/22 16:20:00 EDT, Height, 55.3, [...] 01/12/23 9:41:00 EDT, Route to Pharmacy Electronically, [facility], 150, cm, 01/08/23 14:57:00 EDT, Height, 59.2, kg, 12/14/22 10:22:00 EDT, Dry Weight Start Date: 01/12/23 Status: Ordered fluticasone 50 mcg/inh nasal spray See Instructions, SPRAY 1 SPRAY INTO EACH NOSTRIL TWICE A DAY, # 48 mL, 1 Refills, Maintenance, 04/15/23 13:54:00 EDT, [facility] STORE 73188, 90, SPRAY 1 SPRAY INTO EACH NOSTRIL TWICE A DAY, 150, cm, 03/21/23 13:00:00 EDT, Height, 61.5, kg, 01/28/23 10:04:0... Start Date: 04/15/23 Status: Ordered lidocaine 5% topical film 1, Topically, Daily, apply patch in am and remove prior to bed, # 30 patch, 3 Refills, Maintenance,10/16/22 16:35:00 EDT, Patch, [facility]/pharmacy #2025, 1 Topically Daily,Instr:apply patch in [...] Soft Stop, 01/28/23 9:24:00 EDT, DIS Tablet, [facility]/pharmacy #202, Partial fill upon patient request if the prescription isfor a schedule II opioid drug., 163, cm, 01/28/23 6... Start Date: 01/28/23 Status: Ordered ondansetron 8 mg oral tablet, disintegrating 1 tablet = 8 mg, By Mouth, 3 times a day, # 15 tablet, 5 Refills, Maintenance, 12/28/22 17:24:00 EDT, DIS Tablet, [facility]/pharmacy #202, 150, cm, 12/28/22 13:59:00 EDT, Height, 59.2, [...] tablet, 3 Refills, Maintenance, 04/01/23 13:35:00 EDT, [facility]/pharmacy #2025, Partial fill upon patient request [...] for this. 2s/p chondroplasty with Dr. Shepherd Procedures Procedure Date Related Diagnosis Body Site Status Colonoscopy 03/13/15 Completed Esophagogastroduodenoscopy 03/13/15 Completed Social History Social History Type Response Smoking Status Current some day smo ker entered on: 01/21/15 Sex Hospital Consult note * Event Display: Inpatient Consult Note, Non-BH Authored Date: Laboratory * Event Display: Non BH Lab Results Authored Date: * Event Display: Non BH Lab Results Authored Date: * Event Display: Laboratory Result Scanned Authored Date: XR Upper extremity Views * Event Display: X-Ray Upper Extremity Authored Date: * Event Display: X-Ray Upper Extremity Authored Date: * Event Display: X-Ray Upper Extremity Authored Date: XR Shoulder Views * Event Display: X-Ray Shoulder Authored Date: * Event Display: X-Ray Shoulder Authored Date: * Event Display: X-Ray Shoulder Authored Date: Radiology * Event Display: CT Scan Head, Non- BH Authored Date: * Event Display: CT Scan Head, Non- BH Authored Date: * Event Display: X-Ray Hand/Wrist Authored Date: * Event Display: X-Ray Hand/Wrist Authored Date: * Event Display: X-Ray Hand/Wrist Authored Date: * Event Display: X-Ray Hand/Wrist Authored Date: * Event Display: X-Ray Hand/Wrist Authored Date: * Event Display: X-Ray Hand/Wrist, Non- BH Authored Date: Patient Care team information Care Team Personnel Name: Katey Benavides RN Position: S RN Member Role: Primary Care Nurse Name: Sharon Hilton NP Position: [facility] PCO Associate Professional Member Role: PCP Address: Address: [address] [place] [address] Name: Liat FIELDS, Lo Position: [facility] RN Member Role: Primary Care Nurse Care Team Related Persons Name: KOLBY ALVAREZ Address: home [address] [place] [address] Name: GRAY CLARK Address: home [address] [place], [place] Name: MAR EWING Address: [place], [place] Name: RANDALL THAYER Name: ROXANN SUAREZ Address: home [address] [place] [address] Name: MC SUAREZ Address: home [address] [place] [address]
--- OUTSIDE RECORDS SUMMARY | 2023-06-11 16:36 | XMS_ITS | Continuity of Care Document ---
Author Name Unknown Organization [facility] Medicine Address [address] [place] [address]- Care Team Providers Care Real Estate Job Titles Name Role Phone Yobani MC, Sharon Bryant Primary Care Physician [phone] [place] [facility] [place](s[place] 03/25/23 - 04/24/23 [facility] Medicine [address] [place] [address]- Allergies, Adverse Reactions, Alerts Substance Reaction Severity Status codeine 1 hives Active ibuprofen 2 Active vancomycin hives Active Soma Active Estrogens Active zolpidem Unknown Active Xanax Active Diflucan Active Darvocet N [...] pneumococcal 23-valent vaccine 01/19/16 Given 1Result Comment: 34992-350-10 FLU 2Result Comment: [facility] Medications acetaminophen [...] Refills, Maintenance, 03/31/23 14:57:00 EDT, [facility], 150, cm, 03/21/23 13:00:00 EDT, Height, 61.5, kg, 01/28/23 10:04:00 EDT, Dry Weight Start Date: 03/31/23 Stop Date: 04/30/23 Status: Ordered cetirizine 10 mg oral tablet 1 tablet, By Mouth, 2 times a day, # 180 tablet, 1 Refills, Maintenance, 03/29/23 18:18:00 EDT, [facility], 150, cm, 03/21/23 13:00:00 EDT, Height, 61.5, [...] 01/13/23 16:39:00 EDT, Route to Pharmacy Electronically, [facility]/pharmacy #[id number], Partial fill upon patientrequest if the prescription is for a schedule II op... Start Date: 01/13/23 Status: Ordered [facility] PURELAX POWDER, See Instructions, # 1,020 [...] Refills, Maintenance, 11/18/22 20:04:00 EDT, [facility], 150, cm, 10/16/22 16:20:00 EDT, Height, 55.3, [...] 01/12/23 9:41:00 EDT, Route to Pharmacy Electronically, [facility] STORE 89651, 150, cm, 01/08/23 14:57:00 EDT, Height, 59.2, kg, 12/14/22 10:22:00 EDT, Dry Weight Start Date: 01/12/23 Status: Ordered fluticasone 50 mcg/inh nasal spray See Instructions, SPRAY 1 SPRAY INTO EACH NOSTRIL TWICE A DAY, # 48 mL, 1 Refills, Maintenance, 04/15/23 13:54:00 EDT, [facility] STORE 13466, 90, SPRAY 1 SPRAY INTO EACH NOSTRIL TWICE A DAY, 150, cm, 03/21/23 13:00:00 EDT, Height, 61.5, kg, 01/28/23 10:04:0... Start Date: 04/15/23 Status: Ordered lidocaine 5% topical film 1, Topically, Daily, apply patch in am and remove prior to bed, # 30 patch, 3 Refills, Maintenance,10/16/22 16:35:00 EDT, Patch, [facility]/pharmacy #2025, 1 Topically Daily,Instr:apply patch in [...] Soft Stop, 01/28/23 9:24:00 EDT, DIS Tablet, [facility]/pharmacy #2025, Partial fill upon patient request if the prescription isfor a schedule II opioid drug., 163, cm, 01/28/23 6... Start Date: 01/28/23 Status: Ordered ondansetron 8 mg oral tablet, disintegrating 1 tablet = 8 mg, By Mouth, 3 times a day, # 15 tablet, 5 Refills, Maintenance, 12/28/22 17:24:00 EDT, DIS Tablet, [facility]/pharmacy #2025, 150, cm, 12/28/22 13:59:00 EDT, [...] Team Personnel Name: Katey Benavides RN Position: [facility] RN Member Role: Primary Care Nurse Name: Sharon Hilton NP Position: [facility] PCO Associate Professional Member Role: PCP Address: Address: [address] [place] [id number]- Name: Liat FIELDS, Lo Position: S RN Member Role: Primary Care Nurse Care Team Related Persons Name: KOLBY ALVAREZ Address: home [address] Name: GARY CLARK Address: home [address] [place], [place] Name: MAR EWING Address: home [place], [place] Name: RANDALL THAYER Name: ROXANN SUAREZ Address: home [address] [place] [address] Name: MC SUAREZ Address: home [address] [place] [address]
--- OUTSIDE RECORDS SUMMARY | 2023-06-11 16:36 | XMS_ITS | Continuity of Care Document ---
Author Name Unknown Organization [facility] Address [address] [place] [address]- Care Team Providers Care Disease Case Manager Rn Name Role Phone Yobani MC, Sharon Bryant Primary Care Physician [place] [facility] [place](s): 01/30/23 - 05/30/23 [facility] [address] [place] [address]- Attending Physician: Sunil Ennis MD Admitting Physician: Sunil Ennis MD Referring Physician: Sharon Hilton NP Allergies, Adverse Reactions, Alerts Substance Reaction Severity [...] pneumococcal 23-valent vaccine 01/19/16 Given 1Result Comment: 03111-551-96 FLU 2Result Comment: [facility] Medications acetaminophen 500 mg oral capsule 2 capsule = 1,000 mg, By Mouth, Every 4 hours, PRN for pain, # 100 capsule, 3 Refills, Maintenance,05/26/23 15:37:00 EST, C[facility], [facility], Partial fill upon patient request [...] Refills, Maintenance, 03/31/23 14:57:00 EDT, [facility], 150, cm, 03/21/23 13:00:00 EDT, Height, 61.5, kg, 01/28/23 10:04:00 EDT, Dry Weight Start Date: 03/31/23 Stop Date: 04/30/23 Status: Ordered cetirizine 10 mg oral tablet 1 tablet, By Mouth, 2 times a day, # 180 tablet, 1 Refills, Maintenance, 03/29/23 18:18:00 EDT, [facility], 150, cm, 03/21/23 13:00:00 EDT, Height, 61.5, [...] 01/13/23 16:39:00 EDT, Route to Pharmacy Electronically, [facility]/pharmacy #[id number], Partial fill upon patientrequest if the prescription is for a schedule II op... Start Date: 01/13/23 Status: Ordered [facility] [...] Refills, Maintenance, 11/18/22 20:04:00 EDT, [facility], 150, cm, 10/16/22 16:20:00 EDT, Height, 55.3, [...] 01/12/23 9:41:00 EDT, Route to Pharmacy Electronically, [facility] STORE 00460, 150, cm, 01/08/23 14:57:00 EDT, Height, 59.2, kg, 12/14/22 10:22:00 EDT, Dry Weight Start Date: 01/12/23 Status: Ordered fluticasone 50 mcg/inh nasal spray See Instructions, SPRAY 1 SPRAY INTO EACH NOSTRIL TWICE A DAY, # 48 mL, 1 Refills, Maintenance, 04/15/23 13:54:00 EDT, [facility], 90, SPRAY 1 SPRAY INTO EACH NOSTRIL TWICE A DAY, 150, cm, 03/21/23 13:00:00 EDT, Height, 61.5, kg, 01/28/23 10:04:0... Start Date: 04/15/23 Status: Ordered lidocaine 5% topical film 1, Topically, Daily, apply patch in am and remove prior to bed, # 30 patch, 3 Refills, Maintenance,10/16/22 16:35:00 EDT, Patch, [facility]/pharmacy #2024, 1 Topically Daily,Instr:apply patch in am and [...] Refills, Maintenance, 05/06/23 12:01:00 EDT, DIS Tablet, [facility]/pharmacy #2025, 150, cm, 03/21/23 13:00:00 EDT, Height, 61.5, [...] Care Nurse Name: Sharon Hilton NP Position: S PCO Associate Professional Member Role: PCP Address: Address: [address] [place] [id number] Name: Liat FIELDS, Lo Position: S RN Member Role: Primary Care Nurse Care Team Related Persons Name: KOLBY ALVAREZ Address: home [address] [place] [address] Name: GARY CLARK Address: home [address] [place] [address] Name: MAR EWING Address: [place] [address] Name: RANDALL THAYER Name: ROXANN SUAREZ Address: home [address] [place] [address] Name: MC SUAREZ Address: home [address] [place] [address]
--- OUTSIDE RECORDS SUMMARY | 2023-06-11 16:38 | XMS_ITS | Continuity of Care Document ---
Author Name Unknown Organization [facility] Medicine Address [address] [place] [address]- Care Team Providers Care Pumper Hand Name Role Phone Yobani MC, Sharon Bryant Primary Care Physician [phone] Encounter [facility] [place] Date(s): 05/05/23 - 06/04/23 [facility] Family Medicine [address] [place] [address]- Allergies, Adverse Reactions, Alerts Substance Reaction Severity Status vancomycin hives Active codeine 1 hives Active ibuprofen 2 Active Soma Active Darvocet N 100 itching Active Estrogens Active zolpidem Unknown Active Xanax Active Diflucan Active 1pt confirms has tolerated Percocet in [...] pneumococcal 23-valent vaccine 01/19/16 Given 1Result Comment: 25153-992-10 FLU 2Result Comment: [facility] Medications acetaminophen [...] Refills, Maintenance, 03/31/23 14:57:00 EDT, [facility], 150, cm, 03/21/23 13:00:00 EDT, Height, 61.5, kg, 01/28/23 10:04:00 EDT, Dry Weight Start Date: 03/31/23 Stop Date: 04/30/23 Status: Ordered cetirizine 10 mg oral tablet 1 tablet, By Mouth, 2 times a day, # 180 tablet, 1 Refills, Maintenance, 03/29/23 18:18:00 EDT, [facility], 150, cm, 03/21/23 13:00:00 EDT, Height, 61.5, [...] 01/13/23 16:39:00 EDT, Route to Pharmacy Electronically, [facility]/pharmacy #1201, Partial fill upon patientrequest if the prescription is for a schedule II op... Start Date: 01/13/23 Status: Ordered [facility] PURELAX POWDER [facility] PURELAX POWDER, See Instructions, # 1,020 [...] Refills, Maintenance, 11/18/22 20:04:00 EDT, [facility], 150, cm, 10/16/22 16:20:00 EDT, Height, 55.3, [...] 01/12/23 9:41:00 EDT, Route to Pharmacy Electronically, [facility] STORE 20854, 150, cm, 01/08/23 14:57:00 EDT, Height, 59.2, kg, 12/14/22 10:22:00 EDT, Dry Weight Start Date: 01/12/23 Status: Ordered fluticasone 50 mcg/inh nasal spray See Instructions, SPRAY 1 SPRAY INTO EACH NOSTRIL TWICE A DAY, # 48 mL, 1 Refills, Maintenance, 04/15/23 13:54:00 EDT, [facility] STORE 84326, 90, SPRAY 1 SPRAY INTO EACH NOSTRIL TWICE A DAY, 150, cm, 03/21/23 13:00:00 EDT, Height, 61.5, kg, 01/28/23 10:04:0... Start Date: 04/15/23 Status: Ordered lidocaine 5% topical film 1, Topically, Daily, apply patch in am and remove prior to bed, # 30 patch, 3 Refills, Maintenance,10/16/22 16:35:00 EDT, Patch, [facility]/pharmacy #2025, 1 Topically Daily,Instr:apply patch in [...] Refills, Maintenance, 05/06/23 12:01:00 EDT, DIS Tablet, [facility]/pharmacy #2024, 150, cm, 03/21/23 13:00:00 EDT, Height, [...] tablet, 3 Refills, Maintenance, 04/01/23 13:35:00 EDT, [facility]/pharmacy #202, Partial fill upon patient request [...] Team Personnel Name: Katey Benavides RN Position: [facility] RN Member Role: Primary Care Nurse Name: Sharon Hilton NP Position: [facility] PCO Associate Professional Member Role: PCP Address: Address: [address] [place] [id number]- Name: Liat FIELDS, Lo Position: [facility] RN Member Role: Primary Care Nurse Care Team Related Persons Name: KOLBY ALVAREZ Address: home [address] [address] Name: GARY CLARK Address: home [address] [place] [address] Name: MAR EWING Address: [place] [address] Name: RANDALL THAYER Name: ROXANN SUAREZ Address: home [address] [place] [address] Name: MC SUAREZ Address: [address] [address]
--- OUTSIDE RECORDS SUMMARY | 2023-06-11 16:39 | XMS_ITS | Continuity of Care Document ---
Author Name Unknown Organization [facility] Address [address] [place] [address]- Care Team Providers Care Engraver Apprentice Decorative Name Role Phone Yobani MC, Sharon Bryant Primary Care Physician Encounter [facility] [place] Date(s): 04/05/23 - 05/05/23 [facility] [address] [place] [address]- Allergies, Adverse Reactions, Alerts Substance Reaction Severity Status codeine 1 hives Active ibuprofen 2 Active vancomycin hives Active Soma Active Darvocet N 100 itching [...] pneumococcal 23-valent vaccine 01/19/16 Given 1Result Comment: 35714-250-09 FLU 2Result Comment: [facility] Medications acetaminophen [...] Refills, Maintenance, 03/31/23 14:57:00 EDT, [facility], 150, cm, 03/21/23 13:00:00 EDT, Height, 61.5, kg, 01/28/23 10:04:00 EDT, Dry Weight Start Date: 03/31/23 Stop Date: 04/30/23 Status: Ordered cetirizine 10 mg oral tablet 1 tablet, By Mouth, 2 times a day, # 180 tablet, 1 Refills, Maintenance, 03/29/23 18:18:00 EDT, [facility], 150, cm, 03/21/23 13:00:00 EDT, Height, 61.5, [...] 01/13/23 16:39:00 EDT, Route to Pharmacy Electronically, [facility]/pharmacy #[id number], Partial fill upon patientrequest if the prescription is for a schedule II op... Start Date: 01/13/23 Status: Ordered [facility] PURELAX POWDER, See Instructions, # 1,020 Gm, [...] Refills, Maintenance, 11/18/22 20:04:00 EDT, [facility], 150, cm, 10/16/22 16:20:00 EDT, Height, 55.3, [...] 01/12/23 9:41:00 EDT, Route to Pharmacy Electronically, [facility] STORE 69535, 150, cm, 01/08/23 14:57:00 EDT, Height, 59.2, kg, 12/14/22 10:22:00 EDT, Dry Weight Start Date: 01/12/23 Status: Ordered fluticasone 50 mcg/inh nasal spray See Instructions, SPRAY 1 SPRAY INTO EACH NOSTRIL TWICE A DAY, # 48 mL, 1 Refills, Maintenance, 04/15/23 13:54:00 EDT, [facility], 90, SPRAY 1 SPRAY INTO EACH NOSTRIL TWICE A DAY, 150, cm, 03/21/23 13:00:00 EDT, Height, 61.5, kg, 01/28/23 10:04:0... Start Date: 04/15/23 Status: Ordered lidocaine 5% topical film 1, Topically, Daily, apply patch in am and remove prior to bed, # 30 patch, 3 Refills, Maintenance,10/16/22 16:35:00 EDT, Patch, [facility]/pharmacy #2025, 1 Topically Daily,Instr:apply patch in am [...] Soft Stop, 01/28/23 9:24:00 EDT, DIS Tablet, [facility]/pharmacy #2025, Partial fill upon patient request if the prescription isfor a schedule II opioid drug., 163, cm, 01/28/23 6... Start Date: 01/28/23 Status: Ordered ondansetron 8 mg oral tablet, disintegrating 1 tablet = 8 mg, By Mouth, 3 times a day, # 15 tablet, 5 Refills, Maintenance, 12/28/22 17:24:00 EDT, DIS Tablet, [facility]/pharmacy #2025, 150, cm, 12/28/22 13:59:00 EDT, Height, [...] Team Personnel Name: Katey Benavides RN Position: [facility] RN Member Role: Primary Care Nurse Name: Sharon Hilton NP Position: [facility] PCO Associate Professional Member Role: PCP Address: Address: [address] [place] [id number]- Name: Liat FIELDS, Lo Position: S RN Member Role: Primary Care Nurse Care Team Related Persons Name: KOLBY ALVAREZ Address: home [address] Name: GARY CLARK Address: home [address] [place], [place] Name: MAR EWING Address: [place] [address] Name: RANDALL THAYER Name: ROXANN SUAREZ Address: home [address] [place] [address] Name: MC SUAREZ Address: home [address] [place] [address]
--- OUTSIDE RECORDS SUMMARY | 2023-06-11 16:41 | XMS_ITS | Continuity of Care Document ---
Author Name Unknown Organization [facility] Medicine Address [address] [place] [address]- Care Team Providers Care Java Golden Gate Developer Name Role Phone Yobani MC, Sharon Bryant Primary Care Physician [phone] [place] [facility]23 - 05/15/23 [facility] Family Medicine [address] [place] [address]- Allergies, Adverse Reactions, Alerts Substance Reaction Severity [...] pneumococcal 23-valent vaccine 01/19/16 Given 1Result Comment: 37494-844-65 FLU 2Result Comment: [facility] Medications acetaminophen [...] Refills, Maintenance, 03/31/23 14:57:00 EDT, [facility], 150, cm, 03/21/23 13:00:00 EDT, Height, 61.5, kg, 01/28/23 10:04:00 EDT, Dry Weight Start Date: 03/31/23 Stop Date: 04/30/23 Status: Ordered cetirizine 10 mg oral tablet 1 tablet, By Mouth, 2 times a day, # 180 tablet, 1 Refills, Maintenance, 03/29/23 18:18:00 EDT, [facility], 150, cm, 03/21/23 13:00:00 EDT, Height, 61.5, [...] 16:39:00 EDT, Route to Pharmacy Electronically, [facility]/pharmacy #[id number], Partial fill upon patientrequest if the prescription is for a schedule II op... Start Date: 01/13/23 Status: Ordered [facility] PURELAX POWDER, See Instructions, # 1,020 [...] Refills, Maintenance, 11/18/22 20:04:00 EDT, [facility], 150, cm, 10/16/22 16:20:00 EDT, Height, 55.3, [...] 9:41:00 EDT, Route to Pharmacy Electronically, [facility] STORE 16195, 150, cm, 01/08/23 14:57:00 EDT, Height, 59.2, kg, 12/14/22 10:22:00 EDT, Dry Weight Start Date: 01/12/23 Status: Ordered fluticasone 50 mcg/inh nasal spray See Instructions, SPRAY 1 SPRAY INTO EACH NOSTRIL TWICE A DAY, # 48 mL, 1 Refills, Maintenance, 04/15/23 13:54:00 EDT, [facility] STORE 92387, 90, SPRAY 1 SPRAY INTO EACH NOSTRIL TWICE A DAY, 150, cm, 03/21/23 13:00:00 EDT, Height, 61.5, kg, 01/28/23 10:04:0... Start Date: 04/15/23 Status: Ordered lidocaine 5% topical film 1, Topically, Daily, apply patch in am and remove prior to bed, # 30 patch, 3 Refills, Maintenance,10/16/22 16:35:00 EDT, Patch, [facility]/pharmacy #2025, 1 Topically Daily,Instr:apply patch in [...] Refills, Maintenance, 05/06/23 12:01:00 EDT, DIS Tablet, [facility]/pharmacy #2024, 150, cm, 03/21/23 13:00:00 EDT, [...] tablet, 3 Refills, Maintenance, 04/01/23 13:35:00 EDT, [facility]/pharmacy #2024, Partial fill upon patient request [...] Care Nurse Name: Sharon Hilton NP Position: [facility] PCO Associate Professional Member Role: PCP Address: Address: [address] [place] [phone]- Name: Liat FIELDS, Lo Position: S RN Member Role: Primary Care Nurse Care Team Related Persons Name: KOLBY ALVAREZ Address: home [address] [place] [address] Name: GARY CLARK Address: home [address] [place] [address] Name: MAR EWING Address: [place] [address] Name: RANDALL THAYER Name: ROXANN SUAREZ Address: home [address] [place] [address] Name: MC SUAREZ Address: [address] [address]
--- OUTSIDE RECORDS SUMMARY | 2023-06-11 16:42 | XMS_ITS | Continuity of Care Document ---
Author Name Unknown Organization [facility] Address [address] [facility] [place] [address]- Care Team Providers Care Batching Operator Name Role Phone Yobani MC, Sharon Bryant Primary Care Physician Encounter [facility] [place] Date(s): 04/30/23 - 05/30/23 [facility] [address] [facility] [place] [address]- Attending Physician: Annamarie Maza Admitting Physician: Annamarie Maza Referring Physician: AdmtrAnnamarie Allergies, Adverse Reactions, Alerts Substance Reaction Severity [...] pneumococcal 23-valent vaccine 01/19/16 Given 1Result Comment: 30602-498-01 FLU 2Result Comment: [facility] Medications acetaminophen [...] Refills, Maintenance, 03/31/23 14:57:00 EDT, [facility], 150, cm, 03/21/23 13:00:00 EDT, Height, 61.5, kg, 01/28/23 10:04:00 EDT, Dry Weight Start Date: 03/31/23 Stop Date: 04/30/23 Status: Ordered cetirizine 10 mg oral tablet 1 tablet, By Mouth, 2 times a day, # 180 tablet, 1 Refills, Maintenance, 03/29/23 18:18:00 EDT, [facility], 150, cm, 03/21/23 13:00:00 EDT, Height, 61.5, [...] 01/13/23 16:39:00 EDT, Route to Pharmacy Electronically, [facility]/pharmacy #9072, Partial fill upon patientrequest if the prescription [...] Refills, Maintenance, 11/18/22 20:04:00 EDT, [facility], 150, cm, 10/16/22 16:20:00 EDT, Height, 55.3, [...] 01/12/23 9:41:00 EDT, Route to Pharmacy Electronically, [facility] STORE 46674, 150, cm, 01/08/23 14:57:00 EDT, Height, 59.2, kg, 12/14/22 10:22:00 EDT, Dry Weight Start Date: 01/12/23 Status: Ordered fluticasone 50 mcg/inh nasal spray See Instructions, SPRAY 1 SPRAY INTO EACH NOSTRIL TWICE A DAY, # 48 mL, 1 Refills, Maintenance, 04/15/23 13:54:00 EDT, [facility] STORE 25954, 90, SPRAY 1 SPRAY INTO EACH NOSTRIL TWICE A DAY, 150, cm, 03/21/23 13:00:00 EDT, Height, 61.5, kg, 01/28/23 10:04:0... Start Date: 04/15/23 Status: Ordered lidocaine 5% topical film 1, Topically, Daily, apply patch in am and remove prior to bed, # 30 patch, 3 Refills, Maintenance,10/16/22 16:35:00 EDT, Patch, [facility]/pharmacy #2024, 1 Topically Daily,Instr:apply patch in am [...] Refills, Maintenance, 05/06/23 12:01:00 EDT, DIS Tablet, [facility]/pharmacy #2025, 150, cm, 03/21/23 13:00:00 EDT, Height, [...] Associate Professional Member Role: PCP Address: Address: [address] [place] [id number] Name: Liat FIELDS, Lo Position: S RN Member Role: Primary Care Nurse Care Team Related Persons Name: KOLBY ALVAREZ Address: home [address] [place] [address] Name: GARY CLARK Address: home [address] [place] [address] Name: MAR EWING Address: [place] [address] Name: RANDALL THAYER Name: ROXANN SUAREZ Address: home [address] [place] [address] Name: MC SUAREZ Address: home [address] [place] [address]
[2023-06-11 21:03] VITALS: BP 115/71; PULSE 71; RESP 14; TEMP 36.1; O2SAT 97
[2023-06-11 21:18] LABS: UPreg QC Valid YES; Urine Pregnancy NEGATIVE (NEGATIVE)
[2023-06-11 21:23] LABS: Amphetamine Screen Urine Not Detected (Not Detect); Barbiturates, Urine Not Detected (Not Detect); Benzodiazepines Screen Urine Not Detected (Not Detect); Cannabinoid Screen Urine Not Detected (Not Detect); Cocaine Screen Urine POSITIVE (Not Detect); Opiate Screen Urine Not Detected (Not Detect); Phencyclidine Screen Urine Not Detected (Not Detect)
[2023-06-11 21:44] LABS: Fentanyl, urine Not Detected (Not Detect)
--- NOTE | 2023-06-12 | ECG_ITS ---
Test Reason : COCAINE USE Blood Pressure : / mmHG Vent. Rate : 077 BPM Atrial Rate : 077 BPM P-R Int : 174 ms QRS Dur : 080 ms QT Int : 370 ms P-R-T Axes : 037 -16 -04 degrees QTc Int : 418 ms Normal sinus rhythm Minimal voltage criteria for LVH, may be normal variant ( R in aVL ) Nonspecific T wave abnormality Abnormal ECG No previous ECGs available Referred By: Haven Marie Electronically Signed By:PHILLIP DIAZ
--- NOTE | 2023-06-12 01:47 | PC.NURSE ---
Med req completed.
[2023-06-12 02:14] VITALS: BP 97/65; PULSE 66; RESP 14; TEMP 36.7; O2SAT 97
[2023-06-12] MEDS: Acetaminophen 325 MG TABLET 975 MG PO (02:18)
[2023-06-12] MEDS: LORazepam 1 MG TABLET PO ×2 (02:18→16:56)
[2023-06-12] MEDS: Doxazosin Mesylate 2 MG TABLET PO ×2 (02:19→20:29)
[2023-06-12] MEDS: Apixaban 2.5 MG TABLET PO ×2 (02:19→20:29)
[2023-06-12] MEDS: Mirtazapine 7.5 MG TABLET PO ×2 (02:19→20:29)
[2023-06-12] MEDS: Famotidine 20 MG TABLET PO ×2 (02:19→20:29)
[2023-06-12] MEDS: QUEtiapine Fumarate 50 MG TABLET PO ×3 (03:26→20:29)
--- NOTE | 2023-06-12 08:00 | MHC.CARE ---
patient assessed by care team/ plan to call collaterals and determine inpt v referrals
--- NOTE | 2023-06-12 08:19 | MHC.CARE ---
left vm, no PHI disclosed, for both listed emergency contact, a daughter and her significant other, requesting call back for more information.
[2023-06-12] MEDS: Cholecalciferol (Vitamin D3) 25 MCG TABLET 125 MCG PO (09:19)
[2023-06-12] MEDS: Omeprazole 20 MG CAPSULE.DR PO ×2 (09:21→20:29)
[2023-06-12] MEDS: Loratadine 10 MG TABLET PO (09:21)
[2023-06-12] MEDS: FLUoxetine HCl 10 MG CAPSULE PO (09:21)
[2023-06-12] MEDS: Fluticasone Propionate Nasal 16 GM SPRAY 1 SPRAY NOSTRIL-B (09:22)
[2023-06-12] MEDS: Chlorhexidine Gluc Oral Rinse 15 ML MOUTHWASH BUCCAL (09:24)
[2023-06-12] MEDS: Lidocaine 4 % Patch ADH..PATCH 2 PATCH TRANSDERMA (09:25)
--- NOTE | 2023-06-12 10:38 | PHA.MEDREC ---
Pharmacy Consult ? Medication Reconciliation Pharmacy has completed the medication reconciliation. spoke with patient and at bedside and called [facility]. Patient reports that she is not allergic to zofran and she currently has a bottle of it with her. She confirmed seroquel 600mg at bedtime and 50mg BID (50's last picked up in february). [facility] reported her lorazepam was last picked up on 04/14 for a 30 day supply. She explained that she only takes the dicyclomine with meals prn. patient and [facility] confirm that she is no longer taking fluoxetine.
[2023-06-12] MEDS: Pregabalin 200 MG CAPSULE PO ×3 (11:21→20:29)
[2023-06-12] MEDS: Acetaminophen 325 MG TABLET 650 MG PO (14:51)
[2023-06-12] MEDS: bisacodyL 10 MG SUPP.RECT PR (14:51)
[2023-06-12] MEDS: polyethylene glycoL 3350 17 GM POWD.PACK PO (14:51)
[2023-06-12 16:33] VITALS: BP 118/80; PULSE 78; RESP 20; TEMP 36.7; O2SAT 98
--- NOTE | 2023-06-12 16:34 | PC.NURSE ---
nurse to nurse report given to M5
--- NOTE | 2023-06-12 17:19 | PC.NURSE ---
pt requesting her Seroquel. informed pt this this a bedtime med and cannot be pulled/given prior to 8pm. pt reports she takes it in the middle of the day and takes a repeat dose at night. pt reporting the same for her Ativan that is 1mg BID, she reports that sometimes she takes 2mg when she needs it then takes another later . informed pt that her meds can only be given every 12 hrs when they are BID. pt argumentative about this. pt requesting her bring in the pills bottls so she can show us how her meds are supposed ot be taken
[2023-06-12 18:10] LABS: Appearance Urine Cloudy; Color Urine Yellow; Glucose Urine UA Negative (Negative); Leukocyte Esterase Urine Negative (Negative); Nitrite Urine Negative (Negative); UMIC TRIGGER UACC YES; Urine Blood Small (1+) (Negative); Urine Ketones Negative (Negative); Urine Protein Negative (Neg-Trace)
[2023-06-12 18:26] LABS: Bacteria Urine 2+ (None Seen); Hyaline Casts Urine 0-2 /LPF (0-2); RBC Urine 0-2 /HPF (0-2); WBC Urine 0-5 /HPF (0-5)
[2023-06-12] MEDS: hydrOXYzine HCL 25 MG TABLET PO (18:33)
--- NOTE | 2023-06-12 19:18 | HE.PHANOTE ---
FULL BOTTLE OF TRULANCE 3 MG VERIFIED AND SENT WITH RN
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
[2023-06-12 19:58] VITALS: BP 155/67; PULSE 115; RESP 18
[2023-06-12] MEDS: QUEtiapine Fumarate 300 MG TABLET 600 MG PO (20:29)
[2023-06-13] MEDS: hydrOXYzine HCL 25 MG TABLET PO (06:07)
[2023-06-13 08:05] VITALS: BP 130/83; PULSE 78; RESP 16; TEMP 36.5; O2SAT 98
[2023-06-13] MEDS: Omeprazole 20 MG CAPSULE.DR PO ×2 (08:36→20:29)
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
[2023-06-13] MEDS: Pregabalin 200 MG CAPSULE PO ×3 (08:37→20:31)
[2023-06-13] MEDS: Apixaban 2.5 MG TABLET PO ×2 (08:37→20:31)
[2023-06-13] MEDS: Cholecalciferol (Vitamin D3) 25 MCG TABLET 125 MCG PO (08:37)
[2023-06-13] MEDS: Loratadine 10 MG TABLET PO (08:37)
[2023-06-13] MEDS: Sertraline HCL 25 MG TABLET PO (09:21)
[2023-06-13] MEDS: Chlorhexidine Gluc Oral Rinse 15 ML MOUTHWASH BUCCAL (09:21)
[2023-06-13] MEDS: Lidocaine 4 % Patch ADH..PATCH 2 PATCH TRANSDERMA (09:21)
[2023-06-13] MEDS: Magnesium Hydrox/Alum Hydrox 30 ML ORAL.SUSP PO (09:21)
[2023-06-13] MEDS: bisacodyL 10 MG SUPP.RECT PR (11:02)
[2023-06-13] MEDS: QUEtiapine Fumarate 100 MG TABLET PO (11:08)
[2023-06-13 16:35] VITALS: BP 123/57; PULSE 99; TEMP 36.1
[2023-06-13] MEDS: Acetaminophen 325 MG TABLET 650 MG PO (16:47)
[2023-06-13] MEDS: QUEtiapine Fumarate 300 MG TABLET 600 MG PO (20:28)
[2023-06-13] MEDS: Doxazosin Mesylate 2 MG TABLET PO (20:29)
[2023-06-13] MEDS: Famotidine 20 MG TABLET PO (20:31)
[2023-06-14] MEDS: traZODone HCL 50 MG TABLET PO ×2 (00:54→21:55)
[2023-06-14 06:00] VITALS: BP 102/55; PULSE 75; RESP 18; TEMP 37; O2SAT 96
[2023-06-14] MEDS: Cholecalciferol (Vitamin D3) 25 MCG TABLET 125 MCG PO (08:22)
[2023-06-14] MEDS: Sertraline HCL 25 MG TABLET PO (08:22)
[2023-06-14] MEDS: Chlorhexidine Gluc Oral Rinse 15 ML MOUTHWASH BUCCAL (08:22)
[2023-06-14] MEDS: Omeprazole 20 MG CAPSULE.DR PO ×2 (08:23→21:49)
[2023-06-14] MEDS: Pregabalin 200 MG CAPSULE PO ×3 (08:23→21:48)
[2023-06-14] MEDS: Loratadine 10 MG TABLET PO (08:23)
[2023-06-14] MEDS: Apixaban 2.5 MG TABLET PO ×2 (08:23→21:49)
[2023-06-14] MEDS: Fluticasone Propionate Nasal 16 GM SPRAY 1 SPRAY NOSTRIL-B (08:27)
[2023-06-14] MEDS: Lidocaine 4 % Patch ADH..PATCH 2 PATCH TRANSDERMA (08:28)
[2023-06-14] MEDS: Acetaminophen 325 MG TABLET 650 MG PO (09:39)
[2023-06-14] MEDS: QUEtiapine Fumarate 100 MG TABLET PO (11:24)
[2023-06-14] MEDS: bisacodyL 10 MG SUPP.RECT PR (14:04)
--- NOTE | 2023-06-14 17:12 | P.PNPSI_ITS ---
Subjective Subjective Date of Service: 06/14/23 Reason For Visit: si Subjective Notes: Conditional Voluntary Healthcare Proxy: No Guardianship: No Medical Problems Affecting Mental Status: No Interim History: The medicines are wrong. I need refills so I can leave. I need more Ativan I have been catatonic without high doses. Pt abrupt in presentation with tw today. Demanding an increase in Ativan, accusatory of providers not meeting her needs to manage anxiety. Messages left with [facility] regarding their orders [phone], discussed with [facility] who reports hx of Seroquel 300 mg HS, Mirtazapine 7.5 mg HS, Sertraline 50 mg daily, Lorazepam 1 mg bid prn, Lyrica 200 mg tid, Trulance 3 mg daily Eliquis 2.5 mg bid, Pantoprazole 20 mg bid. Pt asking for xanax as well-discussed her report of allergy, she wants to trial irregardless. Mass[facility] reviewed-minimal information offered by this source. Medication Compliance: Yes Side effects from medications: No Attending Groups: No Review of Systems Acute medical concerns: No Medical Review of Systems: unchanged Review of Systems Review of Systems Yes all other systems are reviewed and are negative Mental Status Exam Mental Status Exam Patient Appearance: Appropriate Patient Orientation: Person, Place, Time and Situation Level of Consciousness: Alert Patient Behavior: Talkative, Distractible and Good Eye Contact Mood Description: Hostile and Angry Affect Description: Blunted Patient Cognition Impaired: No Ability to Follow Directions: Good Speech Pattern: Spontaneous Speech Memory Description: Episodic Impaired Hallucinations: None Delusions: Not Present Thought Process: Distracted Thought Content: positive for Circumstantial Depressive Symptoms: Increased Anxiety, Increased Irritability and Thoughts of /Suicide (denies) Judgement: Fair Diagnostics Vital Signs (24Hr): Vital Signs - 24 hr 06/14/23 06:00 Temperature 98.6 F Pulse Rate 75 Respiratory Rate 18 Blood Pressure 102/55 L Pulse Oximetry 96 Oxygen Delivery Method Room Air BMI result Body Mass Index 27.6 Labs 06/11/23 14:25 06/11/23 14:25 Labs: Laboratory Results - last 48 hr 06/12/23 17:40 Urine Color Yellow Urine Appearance Cloudy Urine pH 8.0 Ur Specific [place] 1.010 Urine Protein Negative Urine Glucose (UA) Negative Urine Ketones Negative Urine Blood Small (1+) H Urine Nitrite Negative Ur Leukocyte Esterase Negative Urine RBC 0-2 Urine WBC 0-5 Ur Squamous Epith Cells 11-20 Urine Bacteria 2+ Hyaline Casts 0-2 Medications Medications Current Medications Acetaminophen (Acetaminophen 325 Mg Tablet) 650 mg PO Q6H PRN PRN Reason: Pain, Moderate(Pain Scale 4-6) Last Admin: 06/14/23 09:39 Dose: 650 mg Al Hydroxide/Mg Hydroxide (Magnesium Hydrox/Alum Hydrox 30 Ml Oral.Susp) 30 ml PO Q6H PRN PRN Reason: Heartburn/Nausea Last Admin: 06/13/23 09:21 Dose: 30 ml Apixaban (Apixaban 2.5 Mg Tablet) 2.5 mg PO BID [facility] Last Admin: 06/14/23 08:23 Dose: 2.5 mg Bisacodyl (Bisacodyl 10 Mg Supp.Rect) 10 mg NM DAILY PRN PRN Reason: constipation Last Admin: 06/14/23 14:04 Dose: 10 mg Bisacodyl (Bisacodyl 10 Mg Supp.Rect) 10 mg NM BID PRN PRN Reason: Constipation Chlorhexidine Gluconate (Chlorhexidine Gluc Oral Rinse 15 Ml Mouthwash) 15 ml BUCCAL DAILY [facility] Last Admin: 06/14/23 08:22 Dose: 15 ml Dicyclomine HCl (Dicyclomine Hcl 10 Mg Capsule) 10 mg PO TIDWM PRN PRN Reason: GI Upset Doxazosin Mesylate (Doxazosin Mesylate 2 Mg Tablet) 2 mg PO BEDTIME [facility]; Protocol Last Admin: 06/13/23 20:29 Dose: 2 mg Famotidine (Famotidine 20 Mg Tablet) 20 mg PO BEDTIME [facility] Last Admin: 06/13/23 20:31 Dose: 20 mg Fluticasone Propionate (Fluticasone Propionate Nasal 16 Gm [place]) 1 spray NOSTRIL-B DAILY [facility] Last Admin: 06/14/23 08:27 Dose: 1 spray Hydroxyzine HCl (Hydroxyzine Hcl 25 Mg Tablet) 25 mg PO Q6H PRN PRN Reason: Anxiety Last Admin: 06/13/23 06:07 Dose: 25 mg Lidocaine (Lidocaine 4 % Patch Adh..Patch) 2 patch TRANSDERMA DAILY [facility] Last Admin: 06/14/23 08:28 Dose: 2 patch Loratadine (Loratadine 10 Mg Tablet) 10 mg PO DAILY [facility] Last Admin: 06/14/23 08:23 Dose: 10 mg Lorazepam (Lorazepam 1 Mg Tablet) 1 mg PO BID PRN PRN Reason: anxiety Last Admin: 06/12/23 16:56 Dose: 1 mg Magnesium Hydroxide (Milk Of Magnesia 30 Ml Oral.Susp) 30 ml PO DAILY PRN PRN Reason: Constipation Plecanatide [ (Trulance] 3 Mg) 1 each PO DAILY [facility] Last Admin: 06/14/23 08:26 Dose: 1 each Omeprazole (Omeprazole 20 Mg Capsule.Dr) 20 mg PO BID [facility] Last Admin: 06/14/23 08:23 Dose: 20 mg Ondansetron HCl (Ondansetron Odt 4 Mg Tab.Rapdis) 4 mg TRANSLINGU Q8H PRN PRN Reason: nausea Polyethylene Glycol (Polyethylene Glycol 3350 17 Gm Powd.Pack) 17 gm PO BID [facility] Pregabalin (Pregabalin 200 Mg Capsule) 200 mg PO TID [facility] Last Admin: 06/14/23 14:03 Dose: 200 mg Quetiapine Fumarate (Quetiapine Fumarate 300 Mg Tablet) 600 mg PO BEDTIME [facility] Last Admin: 06/13/23 20:28 Dose: 600 mg Quetiapine Fumarate (Quetiapine Fumarate 50 Mg Tablet) 50 mg PO BID PRN PRN Reason: Anxiety Sertraline HCl (Sertraline Hcl 25 Mg Tablet) 25 mg PO DAILY [facility] Last Admin: 06/14/23 08:22 Dose: 25 mg Trazodone HCl (Trazodone Hcl 50 Mg Tablet) 50 mg PO BEDTIME MRX1 PRN PRN Reason: Insomnia Last Admin: 06/14/23 00:54 Dose: 50 mg Vitamin D (Cholecalciferol (Vitamin D3) 25 Mcg Tablet) 125 mcg PO DAILY [facility] Last Admin: 06/14/23 08:22 Dose: 125 mcg Allergies Allergies Allergy/AdvReac Type Severity Reaction Status Date / Time alprazolam [From XANAX] Allergy Unknown UNKNOWN Verified 06/11/23 12:44 carisoprodol [From SOMA] Allergy Unknown UNKNOWN Verified 06/11/23 12:44 cephalexin [From KEFLEX] Allergy Unknown UNKNOWN Verified 06/11/23 12:44 codeine [CODEINE] Allergy Unknown HIVES Verified 06/11/23 12:44 fluconazole [From DIFLUCAN] Allergy Unknown UNKNOWN Verified 06/11/23 12:44 ibuprofen [IBUPROFEN] Allergy Unknown UNKNOWN Verified 06/11/23 12:44 ondansetron [ONDANSETRON] Allergy Unknown HIVES Verified 06/11/23 12:44 propoxyphene Allergy Unknown ITCHING Verified 06/11/23 12:44 [From DARVOCET-N 100] vancomycin [VANCOMYCIN] Allergy Unknown HIVES Verified 06/11/23 12:44 Assessment & Plan Assessment & Plan (1) Acute anxiety: Status: Acute Code(s): F41.9 - Anxiety disorder, unspecified (2) Major depression, chronic: Status: Acute Code(s): F32.9 - Major depressive disorder, single episode, unspecified Plan Robyn meets criteria for IP LOC for safety and stabilization. Current medications were individually reviewed and maintained. She is admitted on a CV. Outpatient connections to be reviewed and renewed. Zoloft was added to her regimen at 25 mg. Side effects were reviewed. 06/14/12 Call pending to [facility] Continue current regime ?Mood stabilizer trial if pt will allow Reason for continued inpatient stay Substantial Risk for: rapid decompensation Time Spent With Patient Time: Total time managing care of this patient today ____ minutes.
[2023-06-14] MEDS: LORazepam 1 MG TABLET PO ×2 (17:15→21:49)
[2023-06-14] MEDS: hydrOXYzine HCL 25 MG TABLET PO (17:15)
[2023-06-14] MEDS: polyethylene glycoL 3350 17 GM POWD.PACK PO (17:20)
[2023-06-14 19:00] VITALS: BP 116/66; PULSE 85; TEMP 36.9; O2SAT 97
[2023-06-14] MEDS: QUEtiapine Fumarate 300 MG TABLET 600 MG PO (21:49)
[2023-06-14] MEDS: Doxazosin Mesylate 2 MG TABLET PO (21:49)
[2023-06-14] MEDS: Famotidine 20 MG TABLET PO (21:49)
[2023-06-14] MEDS: QUEtiapine Fumarate 50 MG TABLET PO (21:55)
--- NOTE | 2023-06-14 22:52 | PC.NURSE ---
Patient c/o symptoms and wants urine checked for a UTI. UA cc ordered by KIMMIE Corona.
[2023-06-15 05:07] LABS: Appearance Urine Clear; Bacteria Urine None Seen (None Seen); Color Urine Yellow; Glucose Urine UA Negative (Negative); Hyaline Casts Urine 0-2 /LPF (0-2); Leukocyte Esterase Urine Negative (Negative); Nitrite Urine Negative (Negative); PH 5.5 (5.0-9.0); RBC Urine 0-2 /HPF (0-2); Specific Gravity - Urine <= 1.005 (1.005-1.025); UMIC TRIGGER UACC YES; Urine Blood Moderate (2+) (Negative); Urine Ketones Negative (Negative); Urine Protein Negative (Neg-Trace); WBC Urine 0-5 /HPF (0-5)
[2023-06-15 06:00] VITALS: BP 110/59; PULSE 82; RESP 16; TEMP 36.2; O2SAT 97
[2023-06-15] MEDS: Pregabalin 200 MG CAPSULE PO ×3 (08:33→21:18)
[2023-06-15] MEDS: Cholecalciferol (Vitamin D3) 25 MCG TABLET 125 MCG PO (08:33)
[2023-06-15] MEDS: Loratadine 10 MG TABLET PO (08:33)
[2023-06-15] MEDS: Apixaban 2.5 MG TABLET PO ×2 (08:33→21:18)
[2023-06-15] MEDS: Omeprazole 20 MG CAPSULE.DR PO ×2 (08:33→21:18)
[2023-06-15] MEDS: Sertraline HCL 25 MG TABLET PO (08:33)
[2023-06-15] MEDS: polyethylene glycoL 3350 17 GM POWD.PACK PO ×2 (08:34→21:19)
[2023-06-15] MEDS: bisacodyL 10 MG SUPP.RECT PR (08:40)
[2023-06-15] MEDS: Fluticasone Propionate Nasal 16 GM SPRAY 1 SPRAY NOSTRIL-B (08:41)
[2023-06-15] MEDS: Lidocaine 4 % Patch ADH..PATCH 2 PATCH TRANSDERMA ×2 (10:04→21:44)
[2023-06-15] MEDS: Chlorhexidine Gluc Oral Rinse 15 ML MOUTHWASH BUCCAL ×2 (10:04→21:18)
[2023-06-15] MEDS: hydrOXYzine HCL 25 MG TABLET PO ×2 (10:13→18:12)
[2023-06-15] MEDS: Milk of Magnesia 30 ML ORAL.SUSP PO (10:13)
[2023-06-15] MEDS: LORazepam 1 MG TABLET PO (10:13)
[2023-06-15] MEDS: Sodium Phosphate,Mono-Dibasic 133 ML ENEMA PR (12:47)
[2023-06-15] MEDS: Divalproex Sodium 250 MG TABLET.DR PO ×2 (15:08→21:18)
[2023-06-15 18:00] VITALS: BP 145/74; PULSE 90; RESP 18; TEMP 36.6; O2SAT 96
[2023-06-15] MEDS: QUEtiapine Fumarate 50 MG TABLET PO (18:12)
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
[2023-06-15] MEDS: Doxazosin Mesylate 2 MG TABLET PO (21:18)
[2023-06-15] MEDS: QUEtiapine Fumarate 300 MG TABLET 600 MG PO (21:18)
[2023-06-15] MEDS: Famotidine 20 MG TABLET PO (21:19)
[2023-06-16] MEDS: LORazepam 1 MG TABLET PO ×2 (00:47→14:09)
[2023-06-16] MEDS: traZODone HCL 50 MG TABLET PO ×2 (00:47→23:21)
[2023-06-16 08:00] VITALS: BP 119/64; PULSE 70; RESP 16; TEMP 37; O2SAT 98
[2023-06-16] MEDS: polyethylene glycoL 3350 17 GM POWD.PACK PO ×2 (08:41→23:27)
[2023-06-16] MEDS: Pregabalin 200 MG CAPSULE PO ×3 (08:42→23:14)
[2023-06-16] MEDS: Omeprazole 20 MG CAPSULE.DR PO ×2 (08:42→23:12)
[2023-06-16] MEDS: Chlorhexidine Gluc Oral Rinse 15 ML MOUTHWASH BUCCAL ×2 (08:42→23:12)
[2023-06-16] MEDS: Loratadine 10 MG TABLET PO (08:42)
[2023-06-16] MEDS: Cholecalciferol (Vitamin D3) 25 MCG TABLET 125 MCG PO (08:42)
[2023-06-16] MEDS: Apixaban 2.5 MG TABLET PO ×2 (08:42→23:15)
[2023-06-16] MEDS: Sertraline HCL 50 MG TABLET PO (08:43)
[2023-06-16] MEDS: Fluticasone Propionate Nasal 16 GM SPRAY 1 SPRAY NOSTRIL-B (08:43)
[2023-06-16] MEDS: Divalproex Sodium 250 MG TABLET.DR PO ×2 (08:43→14:15)
[2023-06-16] MEDS: Acetaminophen 325 MG TABLET 650 MG PO ×2 (08:55→23:25)
[2023-06-16] MEDS: QUEtiapine Fumarate 50 MG TABLET PO ×2 (10:11→20:06)
[2023-06-16] MEDS: hydrOXYzine HCL 25 MG TABLET PO ×2 (10:11→16:08)
[2023-06-16] MEDS: Lidocaine 4 % Patch ADH..PATCH 2 PATCH TRANSDERMA (10:13)
--- NOTE | 2023-06-16 13:50 | PC.NURSE ---
Order received for room and body search due to suspected contraband (vape) being used on unit by patient. No contraband found during room search performed by database report writer, Benigno Bowling radio electronics officer, and Angela MADRIGAL. No contraband found during body search performed by database report writer and Benigno Bowling radio electronics officer. Pt cooperative with search.
[2023-06-16] MEDS: QUEtiapine Fumarate 100 MG TABLET PO (16:07)
--- NOTE | 2023-06-16 16:21 | P.PNPSI_ITS ---
Subjective Subjective Date of Service: 06/16/23 Reason For Visit: si Subjective Notes: Conditional Voluntary Healthcare Proxy: No Guardianship: No Medical Problems Affecting Mental Status: No Interim History: Reports improved sleep last evening. Asks that we increase Depakote today as she is looking for improved mood and anxiety control during the day. Requested Seroquel prn 100 mg x 1. Pt reports she needed to have a room, body, belonging search due to a peer having a vape in their room. She is distressed by this. Medication Compliance: Yes Side effects from medications: No Attending Groups: Intermittent Review of Systems Acute medical concerns: No Medical Review of Systems: unchanged Review of Systems Review of Systems Yes all other systems are reviewed and are negative Mental Status Exam Mental Status Exam Patient Appearance: Appropriate Patient Orientation: Person, Place, Time and Situation Level of Consciousness: Alert Patient Behavior: Talkative, Distractible and Good Eye Contact Mood Description: Anxious Affect Description: Anxious Patient Cognition Impaired: No Ability to Follow Directions: Good Speech Pattern: Spontaneous Speech Memory Description: Episodic Impaired Hallucinations: None Delusions: Not Present Thought Process: Distracted Thought Content: positive for Circumstantial Depressive Symptoms: Increased Anxiety, Increased Irritability and Thoughts of /Suicide (denies) Abnormal Motor Activity Signs and Symptoms: Restlessness Judgement: Fair Diagnostics Vital Signs (24Hr): Vital Signs - 24 hr 06/15/23 18:00 06/16/23 08:00 Temperature 97.9 F 98.6 F Pulse Rate 90 70 Respiratory Rate 18 16 Blood Pressure 145/74 H 119/64 Pulse Oximetry 96 98 Oxygen Delivery Method Room Air Room Air BMI result Body Mass Index 27.6 Labs 06/11/23 14:25 06/11/23 14:25 Labs: Laboratory Results - last 48 hr 06/15/23 00:01 Urine Color Yellow Urine Appearance Clear Urine pH 5.5 Ur Specific [place] <= 1.005 Urine Protein Negative Urine Glucose (UA) Negative Urine Ketones Negative Urine Blood Moderate (2+) H Urine Nitrite Negative Ur Leukocyte Esterase Negative Urine RBC 0-2 Urine WBC 0-5 Ur Squamous Epith Cells 3-5 Urine Bacteria None Seen Hyaline Casts 0-2 Medications Medications Current Medications Acetaminophen (Acetaminophen 325 Mg Tablet) 650 mg PO Q6H PRN PRN Reason: Pain, Moderate(Pain Scale 4-6) Last Admin: 06/16/23 08:55 Dose: 650 mg Al Hydroxide/Mg Hydroxide (Magnesium Hydrox/Alum Hydrox 30 Ml Oral.Susp) 30 ml PO Q6H PRN PRN Reason: Heartburn/Nausea Last Admin: 06/13/23 09:21 Dose: 30 ml Apixaban (Apixaban 2.5 Mg Tablet) 2.5 mg PO BID [facility] Last Admin: 06/16/23 08:42 Dose: 2.5 mg Bisacodyl (Bisacodyl 10 Mg Supp.Rect) 10 mg IN DAILY PRN PRN Reason: constipation Last Admin: 06/14/23 14:04 Dose: 10 mg Chlorhexidine Gluconate (Chlorhexidine Gluc Oral Rinse 15 Ml Mouthwash) 15 ml BUCCAL BID [facility] Last Admin: 06/16/23 08:42 Dose: 15 ml Dicyclomine HCl (Dicyclomine Hcl 10 Mg Capsule) 10 mg PO TIDWM PRN PRN Reason: GI Upset Divalproex Sodium (Divalproex Sodium Sprinkles 125 Mg Cap.Spr) 375 mg PO TID [facility] Last Admin: 06/16/23 14:39 Dose: Not Given Doxazosin Mesylate (Doxazosin Mesylate 2 Mg Tablet) 2 mg PO BEDTIME [facility]; Protocol Last Admin: 06/15/23 21:18 Dose: 2 mg Famotidine (Famotidine 20 Mg Tablet) 20 mg PO BEDTIME [facility] Last Admin: 06/15/23 21:19 Dose: 20 mg Fluticasone Propionate (Fluticasone Propionate Nasal 16 Gm [place]) 1 spray NOSTRIL-B DAILY [facility] Last Admin: 06/16/23 08:43 Dose: 1 spray Hydroxyzine HCl (Hydroxyzine Hcl 25 Mg Tablet) 25 mg PO Q6H PRN PRN Reason: Anxiety Last Admin: 06/16/23 16:08 Dose: 25 mg Lidocaine (Lidocaine 4 % Patch Adh..Patch) 2 patch TRANSDERMA DAILY [facility] Last Admin: 06/16/23 10:13 Dose: 1 patch Loratadine (Loratadine 10 Mg Tablet) 10 mg PO DAILY [facility] Last Admin: 06/16/23 08:42 Dose: 10 mg Lorazepam (Lorazepam 1 Mg Tablet) 1 mg PO BID PRN PRN Reason: anxiety Last Admin: 06/16/23 14:09 Dose: 1 mg Magnesium Hydroxide (Milk Of Magnesia 30 Ml Oral.Susp) 30 ml PO DAILY PRN PRN Reason: Constipation Last Admin: 06/15/23 10:13 Dose: 30 ml Mineral Oil (Mineral Oil Enema 133 Ml Enema) 133 ml IN ONCE PRN PRN Reason: constipation Plecanatide [ (Trulance] 3 Mg) 1 each PO BEDTIME [facility] Omeprazole (Omeprazole 20 Mg Capsule.Dr) 20 mg PO BID [facility] Last Admin: 06/16/23 08:42 Dose: 20 mg Ondansetron HCl (Ondansetron Odt 4 Mg Tab.Rapdis) 4 mg TRANSLINGU Q8H PRN PRN Reason: nausea Polyethylene Glycol (Polyethylene Glycol 3350 17 Gm Powd.Pack) 17 gm PO BID [facility] Last Admin: 06/16/23 08:41 Dose: 17 gm Pregabalin (Pregabalin 200 Mg Capsule) 200 mg PO TID [facility] Last Admin: 06/16/23 14:15 Dose: 200 mg Quetiapine Fumarate (Quetiapine Fumarate 300 Mg Tablet) 600 mg PO BEDTIME [facility] Last Admin: 06/15/23 21:18 Dose: 600 mg Quetiapine Fumarate (Quetiapine Fumarate 50 Mg Tablet) 50 mg PO BID PRN PRN Reason: Anxiety Last Admin: 06/16/23 10:11 Dose: 50 mg Sertraline HCl (Sertraline Hcl 50 Mg Tablet) 50 mg PO DAILY [facility] Last Admin: 06/16/23 08:43 Dose: 50 mg Sodium Biphosphate/Sodium Phosphate (Sodium Phosphate,[place]-Dibasic 133 Ml Enema) 133 ml IN ONCE PRN PRN Reason: Constipation Last Admin: 06/15/23 12:47 Dose: 133 ml Trazodone HCl (Trazodone Hcl 50 Mg Tablet) 50 mg PO BEDTIME MRX1 PRN PRN Reason: Insomnia Last Admin: 06/16/23 00:47 Dose: 50 mg Vitamin D (Cholecalciferol (Vitamin D3) 25 Mcg Tablet) 125 mcg PO DAILY [facility] Last Admin: 06/16/23 08:42 Dose: 125 mcg Allergies Allergies Allergy/AdvReac Type Severity Reaction Status Date / Time alprazolam [From XANAX] Allergy Unknown UNKNOWN Verified 06/11/23 12:44 carisoprodol [From SOMA] Allergy Unknown UNKNOWN Verified 06/11/23 12:44 cephalexin [From KEFLEX] Allergy Unknown UNKNOWN Verified 06/11/23 12:44 codeine [CODEINE] Allergy Unknown HIVES Verified 06/11/23 12:44 fluconazole [From DIFLUCAN] Allergy Unknown UNKNOWN Verified 06/11/23 12:44 ibuprofen [IBUPROFEN] Allergy Unknown UNKNOWN Verified 06/11/23 12:44 ondansetron [ONDANSETRON] Allergy Unknown HIVES Verified 06/11/23 12:44 propoxyphene Allergy Unknown ITCHING Verified 06/11/23 12:44 [From DARVOCET-N 100] vancomycin [VANCOMYCIN] Allergy Unknown HIVES Verified 06/11/23 12:44 Assessment & Plan Assessment & Plan (1) Acute anxiety: Status: Acute Code(s): F41.9 - Anxiety disorder, unspecified (2) Major depression, chronic: Status: Acute Code(s): F32.9 - Major depressive disorder, single episode, unspecified Plan Robyn meets criteria for IP LOC for safety and stabilization. Current medications were individually reviewed and maintained. She is admitted on a CV. Outpatient connections to be reviewed and renewed. Zoloft was added to her regimen at 25 mg. Side effects were reviewed. 06/14/23 [facility] pending to [employer] [facility] Continue current regime ?Mood stabilizer trial if pt will allow 06/15/23 [facility] lists [facility]. Depakote 250 mg tid Increase Chlorhexidine to bid [employer] prn x 1 Miralax increase to bid 06/16/23 Increase Depakote to 375 mg tid Seroquel 100 mg x 1 dose Patient educated on: medication risk/benefits and therapeutic strategies Informed Consent: understands Reason for continued inpatient stay Substantial Risk for: rapid decompensation Time Spent With Patient Time: Total time managing care of this patient today ____ minutes.
[2023-06-16 21:35] VITALS: BP 114/77; PULSE 94; RESP 16; TEMP 36.4; O2SAT 99
[2023-06-16] MEDS: Mineral OiL enema 133 ML ENEMA PR (21:40)
[2023-06-16] MEDS: bisacodyL 10 MG SUPP.RECT PR (21:57)
[2023-06-16] MEDS: Divalproex Sodium Sprinkles 125 MG CAP.DR.SPR 375 MG PO (23:12)
[2023-06-16] MEDS: Doxazosin Mesylate 2 MG TABLET PO (23:13)
[2023-06-16] MEDS: QUEtiapine Fumarate 300 MG TABLET 600 MG PO (23:13)
[2023-06-16] MEDS: Famotidine 20 MG TABLET PO (23:14)
[2023-06-17 06:00] VITALS: BP 117/73; PULSE 86; RESP 16; TEMP 36.4; O2SAT 98
[2023-06-17 07:00] VITALS: BMI 28.0
[2023-06-17] MEDS: Cholecalciferol (Vitamin D3) 25 MCG TABLET 125 MCG PO (08:14)
[2023-06-17] MEDS: Divalproex Sodium Sprinkles 125 MG CAP.DR.SPR 375 MG PO ×3 (08:14→21:55)
[2023-06-17] MEDS: Omeprazole 20 MG CAPSULE.DR PO ×2 (08:15→21:55)
[2023-06-17] MEDS: Sertraline HCL 50 MG TABLET PO (08:15)
[2023-06-17] MEDS: Pregabalin 200 MG CAPSULE PO ×3 (08:15→21:55)
[2023-06-17] MEDS: Apixaban 2.5 MG TABLET PO ×2 (08:15→21:56)
[2023-06-17] MEDS: Loratadine 10 MG TABLET PO (08:15)
[2023-06-17] MEDS: Fluticasone Propionate Nasal 16 GM SPRAY 1 SPRAY NOSTRIL-B (08:26)
[2023-06-17] MEDS: polyethylene glycoL 3350 17 GM POWD.PACK PO ×2 (08:26→22:02)
[2023-06-17] MEDS: Acetaminophen 325 MG TABLET 650 MG PO (08:27)
[2023-06-17] MEDS: Lidocaine 4 % Patch ADH..PATCH 2 PATCH TRANSDERMA (08:29)
[2023-06-17] MEDS: hydrOXYzine HCL 25 MG TABLET PO ×2 (12:42→22:10)
[2023-06-17] MEDS: QUEtiapine Fumarate 50 MG TABLET PO ×2 (12:42→16:41)
[2023-06-17] MEDS: bisacodyL 10 MG SUPP.RECT PR (14:12)
[2023-06-17] MEDS: LORazepam 1 MG TABLET PO ×2 (15:20→22:11)
[2023-06-17 16:50] VITALS: BP 126/79; PULSE 75; RESP 16; TEMP 36.7; O2SAT 98
--- NOTE | 2023-06-17 18:51 | HO.PSYCHPN ---
Subjective Subjective Date of Service: 06/17/23 Reason For Visit: si Subjective Notes: Conditional Voluntary Interim History: Pt discussed room. body, belonging search conducted by team as she and room-mate were reported to have a vape. Expressed her concern about how the process was addressed and asks to speak with administration for further explanation and apology. She has completed a human rights violation complaint and has spoken with Dr. Solis about the rationale for this order. Review of medications. Reports she would like to return to [facility] as by history, Sertraline has not been helpful. Also reviewed Seroquel dosing. Pt reports she is medicine focused. We discussed some of her current struggles in the milieu and related these to some of her struggles in the community. Medication Compliance: Yes Side effects from medications: No Attending Groups: Intermittent Review of Systems Acute medical concerns: No Medical Review of Systems: unchanged Review of Systems Review of Systems Yes all other systems are reviewed and are negative Mental Status Exam Mental Status Exam Patient Appearance: Appropriate Patient Orientation: Person, Place, Time and Situation Level of Consciousness: Alert Patient Behavior: Talkative, Distractible and Good Eye Contact Mood Description: Anxious Affect Description: Anxious Patient Cognition Impaired: No Ability to Follow Directions: Good Speech Pattern: Spontaneous Speech Memory Description: Episodic Impaired Hallucinations: None Delusions: Not Present Thought Process: Distracted Thought Content: positive for Circumstantial Depressive Symptoms: Increased Anxiety, Increased Irritability and Thoughts of /Suicide (denies) Abnormal Motor Activity Signs and Symptoms: Restlessness Judgement: Fair Diagnostics Vital Signs (24Hr): Vital Signs - 24 hr 06/16/23 21:35 06/17/23 06:00 06/17/23 16:50 Temperature 97.6 F 97.5 F 98.0 F Pulse Rate 94 86 75 Respiratory Rate 16 16 16 Blood Pressure 114/77 117/73 126/79 Pulse Oximetry 99 98 98 Oxygen Delivery Method Room Air Room Air Room Air BMI result Body Mass Index 28.0 Labs 06/11/23 14:25 06/11/23 14:25 Medications Medications Current Medications Acetaminophen (Acetaminophen 325 Mg Tablet) 650 mg PO Q6H PRN PRN Reason: Pain, Moderate(Pain Scale 4-6) Last Admin: 06/17/23 08:27 Dose: 650 mg Al Hydroxide/Mg Hydroxide (Magnesium Hydrox/Alum Hydrox 30 Ml Oral.Susp) 30 ml PO Q6H PRN PRN Reason: Heartburn/Nausea Last Admin: 06/13/23 09:21 Dose: 30 ml Apixaban (Apixaban 2.5 Mg Tablet) 2.5 mg PO BID [facility] Last Admin: 06/17/23 08:15 Dose: 2.5 mg Bisacodyl (Bisacodyl 10 Mg Supp.Rect) 10 mg [place] DAILY PRN PRN Reason: constipation Last Admin: 06/17/23 14:12 Dose: 10 mg Chlorhexidine Gluconate (Chlorhexidine Gluc Oral Rinse 15 Ml Mouthwash) 15 ml BUCCAL BID [facility] Last Admin: 06/17/23 08:17 Dose: Not Given Dicyclomine HCl (Dicyclomine Hcl 10 Mg Capsule) 10 mg PO TIDWM PRN PRN Reason: GI Upset Divalproex Sodium (Divalproex Sodium Sprinkles 125 Mg Cap.) 375 mg PO TID [facility] Last Admin: 06/17/23 14:07 Dose: 375 mg Doxazosin Mesylate (Doxazosin Mesylate 2 Mg Tablet) 2 mg PO BEDTIME [facility]; Protocol Last Admin: 06/16/23 23:13 Dose: 2 mg Famotidine (Famotidine 20 Mg Tablet) 20 mg PO BEDTIME [facility] Last Admin: 06/16/23 23:14 Dose: 20 mg Fluoxetine HCl (Fluoxetine Hcl 20 Mg Capsule) 20 mg PO DAILY [facility] Fluticasone Propionate (Fluticasone Propionate Nasal 16 Gm [place]) 1 spray NOSTRIL-B DAILY [facility] Last Admin: 06/17/23 08:26 Dose: 1 spray Hydroxyzine HCl (Hydroxyzine Hcl 25 Mg Tablet) 25 mg PO Q4H PRN PRN Reason: Anxiety Lidocaine (Lidocaine 4 % Patch Adh..Patch) 2 patch TRANSDERMA DAILY [facility] Last Admin: 06/17/23 08:29 Dose: 1 patch Loratadine (Loratadine 10 Mg Tablet) 10 mg PO DAILY [facility] Last Admin: 06/17/23 08:15 Dose: 10 mg Lorazepam (Lorazepam 1 Mg Tablet) 1 mg PO BID PRN PRN Reason: Anxiety Magnesium Hydroxide (Milk Of Magnesia 30 Ml Oral.Susp) 30 ml PO DAILY PRN PRN Reason: Constipation Last Admin: 06/15/23 10:13 Dose: 30 ml Mineral Oil (Mineral Oil Enema 133 Ml Enema) 133 ml [place] ONCE PRN PRN Reason: constipation Last Admin: 06/16/23 21:40 Dose: 133 ml Plecanatide [ (Trulance] 3 Mg) 1 each PO BEDTIME [facility] Last Admin: 06/16/23 23:27 Dose: 1 each Omeprazole (Omeprazole 20 Mg Capsule.Dr) 20 mg PO BID [facility] Last Admin: 06/17/23 08:15 Dose: 20 mg Ondansetron HCl (Ondansetron Odt 4 Mg Tab.Rapdis) 4 mg TRANSLINGU Q8H PRN PRN Reason: nausea Polyethylene Glycol (Polyethylene Glycol 3350 17 Gm Powd.Pack) 17 gm PO BID [facility] Last Admin: 06/17/23 08:26 Dose: 17 gm Pregabalin (Pregabalin 200 Mg Capsule) 200 mg PO TID [facility] Last Admin: 06/17/23 14:07 Dose: 200 mg Quetiapine Fumarate (Quetiapine Fumarate 50 Mg Tablet) 650 mg PO BEDTIME [facility] Quetiapine Fumarate (Quetiapine Fumarate 50 Mg Tablet) 50 mg PO TID PRN PRN Reason: Anxiety Last Admin: 06/17/23 16:41 Dose: 50 mg Sodium Biphosphate/Sodium Phosphate (Sodium Phosphate,[place]-Dibasic 133 Ml Enema) 133 ml ME ONCE PRN PRN Reason: Constipation Last Admin: 06/15/23 12:47 Dose: 133 ml Trazodone HCl (Trazodone Hcl 50 Mg Tablet) 50 mg PO BEDTIME MRX1 PRN PRN Reason: Insomnia Last Admin: 06/16/23 23:21 Dose: 50 mg Vitamin D (Cholecalciferol (Vitamin D3) 25 Mcg Tablet) 125 mcg PO DAILY [facility] Last Admin: 06/17/23 08:14 Dose: 125 mcg Allergies Allergies Allergy/AdvReac Type Severity Reaction Status Date / Time alprazolam [From XANAX] Allergy Unknown UNKNOWN Verified 06/11/23 12:44 carisoprodol [From SOMA] Allergy Unknown UNKNOWN Verified 06/11/23 12:44 cephalexin [From KEFLEX] Allergy Unknown UNKNOWN Verified 06/11/23 12:44 codeine [CODEINE] Allergy Unknown HIVES Verified 06/11/23 12:44 fluconazole [From DIFLUCAN] Allergy Unknown UNKNOWN Verified 06/11/23 12:44 ibuprofen [IBUPROFEN] Allergy Unknown UNKNOWN Verified 06/11/23 12:44 ondansetron [ONDANSETRON] Allergy Unknown HIVES Verified 06/11/23 12:44 propoxyphene Allergy Unknown ITCHING Verified 06/11/23 12:44 [From DARVOCET-N 100] vancomycin [VANCOMYCIN] Allergy Unknown HIVES Verified 06/11/23 12:44 Assessment & Plan Assessment & Plan (1) Acute anxiety: Status: Acute Code(s): F41.9 - Anxiety disorder, unspecified (2) Major depression, chronic: Status: Acute Code(s): F32.9 - Major depressive disorder, single episode, unspecified Plan Robyn meets criteria for IP LOC for safety and stabilization. Current medications were individually reviewed and maintained. She is admitted on a CV. Outpatient connections to be reviewed and renewed. Zoloft was added to her regimen at 25 mg. Side effects were reviewed. 06/14/23 Call pending to [employer] [facility] Continue current regime ?Mood stabilizer trial if pt will allow 06/15/23 Med lists from [facility] were reviewed with pt. Depakote 250 mg tid Increase Chlorhexidine to bid [employer] prn x 1 Miralax increase to bid 06/16/23 Increase Depakote to 375 mg tid Seroquel 100 mg x 1 dose 06/17/23 Discontine Sertraline Fluoxetine 20 mg daily Increase Quetiapine to 650 mg HS Patient educated on: medication risk/benefits and therapeutic strategies Informed Consent: understands Reason for continued inpatient stay Substantial Risk for: rapid decompensation Time Spent With Patient Time: Total time managing care of this patient today ____ minutes.
[2023-06-17] MEDS: Doxazosin Mesylate 2 MG TABLET PO (21:55)
[2023-06-17] MEDS: QUEtiapine Fumarate 50 MG TABLET 650 MG PO (21:56)
[2023-06-17] MEDS: Famotidine 20 MG TABLET PO (21:56)
[2023-06-17] MEDS: Chlorhexidine Gluc Oral Rinse 15 ML MOUTHWASH BUCCAL (22:01)
[2023-06-18 08:30] VITALS: BP 97/55; PULSE 83; RESP 16; TEMP 36.6; O2SAT 97
[2023-06-18] MEDS: Pregabalin 200 MG CAPSULE PO ×3 (08:40→21:22)
[2023-06-18] MEDS: Cholecalciferol (Vitamin D3) 25 MCG TABLET 125 MCG PO (08:40)
[2023-06-18] MEDS: Apixaban 2.5 MG TABLET PO ×2 (08:40→21:22)
[2023-06-18] MEDS: polyethylene glycoL 3350 17 GM POWD.PACK PO ×2 (08:40→21:22)
[2023-06-18] MEDS: Omeprazole 20 MG CAPSULE.DR PO ×2 (08:40→21:22)
[2023-06-18] MEDS: Loratadine 10 MG TABLET PO (08:41)
[2023-06-18] MEDS: FLUoxetine HCl 20 MG CAPSULE PO (08:41)
[2023-06-18] MEDS: Divalproex Sodium Sprinkles 125 MG CAP.DR.SPR 375 MG PO ×3 (08:41→21:20)
[2023-06-18] MEDS: Fluticasone Propionate Nasal 16 GM SPRAY 1 SPRAY NOSTRIL-B (08:43)
[2023-06-18] MEDS: hydrOXYzine HCL 25 MG TABLET PO ×2 (08:46→14:18)
[2023-06-18] MEDS: Acetaminophen 325 MG TABLET 650 MG PO (08:46)
[2023-06-18] MEDS: Lidocaine 4 % Patch ADH..PATCH 2 PATCH TRANSDERMA (08:52)
[2023-06-18] MEDS: Milk of Magnesia 30 ML ORAL.SUSP PO (11:25)
[2023-06-18] MEDS: QUEtiapine Fumarate 50 MG TABLET PO ×2 (11:25→14:18)
[2023-06-18] MEDS: LORazepam 1 MG TABLET PO ×2 (11:25→21:21)
[2023-06-18] MEDS: Ondansetron ODT 4 MG TAB.RAPDIS TRANSLINGU (14:18)
--- NOTE | 2023-06-18 15:21 | P.PNPSI_ITS ---
Subjective Subjective Date of Service: 06/18/23 Reason For Visit: si Subjective Notes: Conditional Voluntary Healthcare Proxy: No Guardianship: No Medical Problems Affecting Mental Status: No Interim History: Team report pt is easing into milieu with less conflict. She is visable in milieu with peers. She is tolerating medication changes thus far. Medication Compliance: Yes Side effects from medications: No Attending Groups: Intermittent Review of Systems Acute medical concerns: No Medical Review of Systems: unchanged Review of Systems Review of Systems Yes all other systems are reviewed and are negative Mental Status Exam Mental Status Exam Patient Appearance: Appropriate Patient Orientation: Person, Place, Time and Situation Level of Consciousness: Alert Patient Behavior: Talkative, Distractible and Good Eye Contact Mood Description: Anxious Affect Description: Anxious Patient Cognition Impaired: No Ability to Follow Directions: Good Speech Pattern: Spontaneous Speech Memory Description: Episodic Impaired Hallucinations: None Delusions: Not Present Thought Process: Distracted Thought Content: positive for Circumstantial Depressive Symptoms: Increased Anxiety, Increased Irritability and Thoughts of /Suicide (denies) Abnormal Motor Activity Signs and Symptoms: Restlessness Judgement: Fair Diagnostics Vital Signs (24Hr): Vital Signs - 24 hr 06/17/23 16:50 06/18/23 08:30 Temperature 98.0 F 98 F Pulse Rate 75 83 Respiratory Rate 16 16 Blood Pressure 126/79 97/55 L Pulse Oximetry 98 97 Oxygen Delivery Method Room Air Room Air BMI result Body Mass Index 28.0 Labs 06/11/23 14:25 06/11/23 14:25 Medications Medications Current Medications Acetaminophen (Acetaminophen 325 Mg Tablet) 650 mg PO Q6H PRN PRN Reason: Pain, Moderate(Pain Scale 4-6) Last Admin: 06/18/23 08:46 Dose: 650 mg Al Hydroxide/Mg Hydroxide (Magnesium Hydrox/Alum Hydrox 30 Ml Oral.Susp) 30 ml PO Q6H PRN PRN Reason: Heartburn/Nausea Last Admin: 06/13/23 09:21 Dose: 30 ml Apixaban (Apixaban 2.5 Mg Tablet) 2.5 mg PO BID [facility] Last Admin: 06/18/23 08:40 Dose: 2.5 mg Bisacodyl (Bisacodyl 10 Mg Supp.Rect) 10 mg [place] DAILY PRN PRN Reason: constipation Last Admin: 06/17/23 14:12 Dose: 10 mg Chlorhexidine Gluconate (Chlorhexidine Gluc Oral Rinse 15 Ml Mouthwash) 15 ml BUCCAL BID [facility] Last Admin: 06/18/23 08:43 Dose: Not Given Dicyclomine HCl (Dicyclomine Hcl 10 Mg Capsule) 10 mg PO TIDWM PRN PRN Reason: GI Upset Divalproex Sodium (Divalproex Sodium Sprinkles 125 Mg Cap.) 375 mg PO TID [facility] Last Admin: 06/18/23 14:14 Dose: 375 mg Doxazosin Mesylate (Doxazosin Mesylate 2 Mg Tablet) 2 mg PO BEDTIME [facility]; Protocol Last Admin: 06/17/23 21:55 Dose: 2 mg Famotidine (Famotidine 20 Mg Tablet) 20 mg PO BEDTIME [facility] Last Admin: 06/17/23 21:56 Dose: 20 mg Fluoxetine HCl (Fluoxetine Hcl 20 Mg Capsule) 20 mg PO DAILY [facility] Last Admin: 06/18/23 08:41 Dose: 20 mg Fluticasone Propionate (Fluticasone Propionate Nasal 16 Gm [place]) 1 spray NOSTRIL-B DAILY [facility] Last Admin: 06/18/23 08:43 Dose: 1 spray Hydroxyzine HCl (Hydroxyzine Hcl 25 Mg Tablet) 25 mg PO Q4H PRN PRN Reason: Anxiety Last Admin: 06/18/23 14:18 Dose: 25 mg Lidocaine (Lidocaine 4 % Patch Adh..Patch) 2 patch TRANSDERMA DAILY [facility] Last Admin: 06/18/23 08:52 Dose: 2 patch Loratadine (Loratadine 10 Mg Tablet) 10 mg PO DAILY [facility] Last Admin: 06/18/23 08:41 Dose: 10 mg Lorazepam (Lorazepam 1 Mg Tablet) 1 mg PO BID PRN PRN Reason: Anxiety Last Admin: 06/18/23 11:25 Dose: 1 mg Magnesium Hydroxide (Milk Of Magnesia 30 Ml Oral.Susp) 30 ml PO DAILY PRN PRN Reason: Constipation Last Admin: 06/18/23 11:25 Dose: 30 ml Mineral Oil (Mineral Oil Enema 133 Ml Enema) 133 ml [place] ONCE PRN PRN Reason: constipation Last Admin: 06/16/23 21:40 Dose: 133 ml Plecanatide [ (Trulance] 3 Mg) 1 each PO BEDTIME [facility] Last Admin: 06/17/23 21:55 Dose: 1 each Omeprazole (Omeprazole 20 Mg Capsule.) 20 mg PO BID [facility] Last Admin: 06/18/23 08:40 Dose: 20 mg Ondansetron HCl (Ondansetron Odt 4 Mg Tab.Rapdis) 4 mg TRANSLINGU Q8H PRN PRN Reason: nausea Last Admin: 06/18/23 14:18 Dose: 4 mg Polyethylene Glycol (Polyethylene Glycol 3350 17 Gm Powd.Pack) 17 gm PO BID [facility] Last Admin: 06/18/23 08:40 Dose: 17 gm Pregabalin (Pregabalin 200 Mg Capsule) 200 mg PO TID [facility] Last Admin: 06/18/23 14:14 Dose: 200 mg Quetiapine Fumarate (Quetiapine Fumarate 50 Mg Tablet) 650 mg PO BEDTIME [facility] Last Admin: 06/17/23 21:56 Dose: 650 mg Quetiapine Fumarate (Quetiapine Fumarate 50 Mg Tablet) 50 mg PO TID PRN PRN Reason: Anxiety Last Admin: 06/18/23 14:18 Dose: 50 mg Sodium Biphosphate/Sodium Phosphate (Sodium Phosphate,[place]-Dibasic 133 Ml Enema) 133 ml [place] ONCE PRN PRN Reason: Constipation Last Admin: 06/15/23 12:47 Dose: 133 ml Trazodone HCl (Trazodone Hcl 50 Mg Tablet) 50 mg PO BEDTIME MRX1 PRN PRN Reason: Insomnia Last Admin: 06/16/23 23:21 Dose: 50 mg Vitamin D (Cholecalciferol (Vitamin D3) 25 Mcg Tablet) 125 mcg PO DAILY [facility] Last Admin: 06/18/23 08:40 Dose: 125 mcg Allergies Allergies Allergy/AdvReac Type Severity Reaction Status Date / Time alprazolam [From XANAX] Allergy Unknown UNKNOWN Verified 06/11/23 12:44 carisoprodol [From SOMA] Allergy Unknown UNKNOWN Verified 06/11/23 12:44 cephalexin [From KEFLEX] Allergy Unknown UNKNOWN Verified 06/11/23 12:44 codeine [CODEINE] Allergy Unknown HIVES Verified 06/11/23 12:44 fluconazole [From DIFLUCAN] Allergy Unknown UNKNOWN Verified 06/11/23 12:44 ibuprofen [IBUPROFEN] Allergy Unknown UNKNOWN Verified 06/11/23 12:44 ondansetron [ONDANSETRON] Allergy Unknown HIVES Verified 06/11/23 12:44 propoxyphene Allergy Unknown ITCHING Verified 06/11/23 12:44 [From DARVOCET-N 100] vancomycin [VANCOMYCIN] Allergy Unknown HIVES Verified 06/11/23 12:44 Assessment & Plan Assessment & Plan (1) Acute anxiety: Status: Acute Code(s): F41.9 - Anxiety disorder, unspecified (2) Major depression, chronic: Status: Acute Code(s): F32.9 - Major depressive disorder, single episode, unspecified Plan Robyn meets criteria for IP LOC for safety and stabilization. Current medications were individually reviewed and maintained. She is admitted on a CV. Outpatient connections to be reviewed and renewed. Zoloft was added to her regimen at 25 mg. Side effects were reviewed. 06/14/23 Call pending to [employer] [facility] Continue current regime ?Mood stabilizer trial if pt will allow 06/15/23 Med lists from [facility] and [facility] were reviewed with pt. Depakote 250 mg tid Increase Chlorhexidine to bid [employer] prn x 1 Miralax increase to bid 06/16/23 Increase Depakote to 375 mg tid Seroquel 100 mg x 1 dose 06/18/23 Tolerating medication changes thus far. Continue regime and plan. Informed Consent: understands Reason for continued inpatient stay Substantial Risk for: rapid decompensation Time Spent With Patient Time: Total time managing care of this patient today ____ minutes.
[2023-06-18 16:42] VITALS: BP 114/69; PULSE 94; RESP 20; TEMP 36.3; O2SAT 98
[2023-06-18] MEDS: Sodium Phosphate,Mono-Dibasic 133 ML ENEMA PR (20:02)
[2023-06-18] MEDS: QUEtiapine Fumarate 50 MG TABLET 650 MG PO (21:19)
[2023-06-18] MEDS: Doxazosin Mesylate 2 MG TABLET PO (21:21)
[2023-06-18] MEDS: traZODone HCL 50 MG TABLET PO (21:22)
[2023-06-18] MEDS: Famotidine 20 MG TABLET PO (21:22)
[2023-06-18] MEDS: Chlorhexidine Gluc Oral Rinse 15 ML MOUTHWASH BUCCAL (21:59)
[2023-06-19 08:00] VITALS: BP 103/61; PULSE 76; RESP 16; TEMP 36.3; O2SAT 94
--- NOTE | 2023-06-19 08:42 | P.PNPSI_ITS ---
Subjective Subjective Date of Service: 06/19/23 Reason For Visit: si Interim History: met with patient; discussed with team Patient reports she is overall better but still pretty anxious and asks if she can have an additional p.r.n. of Seroquel 100 mg for when she has higher levels of anxiety/agitation. Said she is anticipating discharging at some point next week but would like to see how Depakote works for her. She is interested in changing it to once a day dosing at bedtime. Patient reports continued nightmares and after discussing medications/side effects/risks she agrees to try clonidine both at bedtime and also for anxiety. Patient also reports considerable constipation asking for enema daily and agrees to try GoLYTELY which she said she frequently takes at home for constipation. Mental Status Exam Mental Status Exam Patient Appearance: Appropriate Patient Orientation: Person, Place, Time and Situation Level of Consciousness: Alert Patient Behavior: Appropriate, Talkative, Distractible and Good Eye Contact Mood Description: Anxious Affect Description: Anxious Patient Cognition Impaired: No Ability to Follow Directions: Good Speech Pattern: Spontaneous Speech Memory Description: Episodic Impaired Hallucinations: None Delusions: Not Present Thought Process: Distracted Thought Content: positive for Intact (no si/hi) and positive for Circumstantial Abnormal Motor Activity Signs and Symptoms: Restlessness Judgement: Fair Diagnostics Vital Signs (24Hr): Vital Signs - 24 hr 06/18/23 16:42 Temperature 97.3 F Pulse Rate 94 Respiratory Rate 20 Blood Pressure 114/69 Pulse Oximetry 98 Oxygen Delivery Method Room Air BMI result Body Mass Index 28.0 Labs 06/11/23 14:25 06/11/23 14:25 Medications Medications Current Medications Acetaminophen (Acetaminophen 325 Mg Tablet) 650 mg PO Q6H PRN PRN Reason: Pain, Moderate(Pain Scale 4-6) Last Admin: 06/18/23 08:46 Dose: 650 mg Al Hydroxide/Mg Hydroxide (Magnesium Hydrox/Alum Hydrox 30 Ml Oral.Susp) 30 ml PO Q6H PRN PRN Reason: Heartburn/Nausea Last Admin: 06/13/23 09:21 Dose: 30 ml Apixaban (Apixaban 2.5 Mg Tablet) 2.5 mg PO BID DANIEL Last Admin: 06/18/23 21:22 Dose: 2.5 mg Bisacodyl (Bisacodyl 10 Mg Supp.Rect) 10 mg [place] DAILY PRN PRN Reason: constipation Last Admin: 06/17/23 14:12 Dose: 10 mg Chlorhexidine Gluconate (Chlorhexidine Gluc Oral Rinse 15 Ml Mouthwash) 15 ml BUCCAL BID [facility] Last Admin: 06/18/23 21:59 Dose: 15 ml Dicyclomine HCl (Dicyclomine Hcl 10 Mg Capsule) 10 mg PO TIDWM PRN PRN Reason: GI Upset Divalproex Sodium (Divalproex Sodium Sprinkles 125 Mg Cap.Spr) 375 mg PO TID [facility] Last Admin: 06/18/23 21:20 Dose: 375 mg Doxazosin Mesylate (Doxazosin Mesylate 2 Mg Tablet) 2 mg PO BEDTIME [facility]; Protocol Last Admin: 06/18/23 21:21 Dose: 2 mg Famotidine (Famotidine 20 Mg Tablet) 20 mg PO BEDTIME [facility] Last Admin: 06/18/23 21:22 Dose: 20 mg Fluoxetine HCl (Fluoxetine Hcl 20 Mg Capsule) 20 mg PO DAILY [facility] Last Admin: 06/18/23 08:41 Dose: 20 mg Fluticasone Propionate (Fluticasone Propionate Nasal 16 Gm [place]) 1 spray NOSTRIL-B DAILY [facility] Last Admin: 06/18/23 08:43 Dose: 1 spray Hydroxyzine HCl (Hydroxyzine Hcl 25 Mg Tablet) 25 mg PO Q4H PRN PRN Reason: Anxiety Last Admin: 06/18/23 14:18 Dose: 25 mg Lidocaine (Lidocaine 4 % Patch Adh..Patch) 2 patch TRANSDERMA DAILY [facility] Last Admin: 06/18/23 08:52 Dose: 2 patch Loratadine (Loratadine 10 Mg Tablet) 10 mg PO DAILY [facility] Last Admin: 06/18/23 08:41 Dose: 10 mg Lorazepam (Lorazepam 1 Mg Tablet) 1 mg PO BID PRN PRN Reason: Anxiety Last Admin: 06/18/23 21:21 Dose: 1 mg Magnesium Hydroxide (Milk Of Magnesia 30 Ml Oral.Susp) 30 ml PO DAILY PRN PRN Reason: Constipation Last Admin: 06/18/23 11:25 Dose: 30 ml Plecanatide [ (Trulance] 3 Mg) 1 each PO BEDTIME [facility] Last Admin: 06/18/23 22:00 Dose: 1 each Omeprazole (Omeprazole 20 Mg Capsule.Dr) 20 mg PO BID [facility] Last Admin: 06/18/23 21:22 Dose: 20 mg Ondansetron HCl (Ondansetron Odt 4 Mg Tab.Rapdis) 4 mg TRANSLINGU Q8H PRN PRN Reason: nausea Last Admin: 06/18/23 14:18 Dose: 4 mg Polyethylene Glycol (Polyethylene Glycol 3350 17 Gm Powd.Pack) 17 gm PO BID [facility] Last Admin: 06/18/23 21:22 Dose: 17 gm Pregabalin (Pregabalin 200 Mg Capsule) 200 mg PO TID [facility] Last Admin: 06/18/23 21:22 Dose: 200 mg Quetiapine Fumarate (Quetiapine Fumarate 50 Mg Tablet) 650 mg PO BEDTIME [facility] Last Admin: 06/18/23 21:19 Dose: 650 mg Quetiapine Fumarate (Quetiapine Fumarate 50 Mg Tablet) 50 mg PO TID PRN PRN Reason: Anxiety Last Admin: 06/18/23 14:18 Dose: 50 mg Sodium Biphosphate/Sodium Phosphate (Sodium Phosphate,[place]-Dibasic 133 Ml Enema) 133 ml HI ONCE PRN PRN Reason: Constipation Last Admin: 06/15/23 12:47 Dose: 133 ml Sodium Biphosphate/Sodium Phosphate (Sodium Phosphate,[place]-Dibasic 133 Ml Enema) 133 ml HI DAILY PRN PRN Reason: constipation Last Admin: 06/18/23 20:02 Dose: 133 ml Trazodone HCl (Trazodone Hcl 50 Mg Tablet) 50 mg PO BEDTIME MRX1 PRN PRN Reason: Insomnia Last Admin: 06/18/23 21:22 Dose: 50 mg Vitamin D (Cholecalciferol (Vitamin D3) 25 Mcg Tablet) 125 mcg PO DAILY [facility] Last Admin: 06/18/23 08:40 Dose: 125 mcg Allergies Allergies Allergy/AdvReac Type Severity Reaction Status Date / Time alprazolam [From XANAX] Allergy Unknown UNKNOWN Verified 06/11/23 12:44 carisoprodol [From SOMA] Allergy Unknown UNKNOWN Verified 06/11/23 12:44 cephalexin [From KEFLEX] Allergy Unknown UNKNOWN Verified 06/11/23 12:44 codeine [CODEINE] Allergy Unknown HIVES Verified 06/11/23 12:44 fluconazole [From DIFLUCAN] Allergy Unknown UNKNOWN Verified 06/11/23 12:44 ibuprofen [IBUPROFEN] Allergy Unknown UNKNOWN Verified 06/11/23 12:44 ondansetron [ONDANSETRON] Allergy Unknown HIVES Verified 06/11/23 12:44 propoxyphene Allergy Unknown ITCHING Verified 06/11/23 12:44 [From DARVOCET-N 100] vancomycin [VANCOMYCIN] Allergy Unknown HIVES Verified 06/11/23 12:44 Assessment & Plan Assessment & Plan (1) Acute anxiety: Status: Acute Code(s): F41.9 - Anxiety disorder, unspecified (2) Major depression, chronic: Status: Acute Code(s): F32.9 - Major depressive disorder, single episode, unspecified Plan Robyn meets criteria for IP LOC for safety and stabilization. Current medications were individually reviewed and maintained. She is admitted on a CV. Outpatient connections to be reviewed and renewed. Zoloft was added to her regimen at 25 mg. Side effects were reviewed. 06/14/23 Call pending to [employer] [facility] verified Continue current regime ?Mood stabilizer trial if pt will allow 06/15/23 Med lists from [facility] and [facility] were reviewed with pt. Depakote 250 mg tid Increase Chlorhexidine to bid [employer] prn x 1 Miralax increase to bid 06/16/23 Increase Depakote to 375 mg tid Seroquel 100 mg x 1 dose 06/18/23 Tolerating medication changes thus far. Continue regime and plan. 06/19/23 Patient reports she is overall better but still pretty anxious and asks if she can have an additional p.r.n. of Seroquel 100 mg for when she has higher levels of anxiety/agitation. Said she is anticipating discharging at some point next week but would like to see how Depakote works for her. She is interested in changing it to once a day dosing at bedtime. Patient reports continued nightmares and after discussing medications/side effects/risks she agrees to try clonidine both at bedtime and also for anxiety. Patient also reports considerable constipation asking for enema daily and agrees to try GoLYTELY which she said she frequently takes at home for constipation. Patient educated on: diagnosis and medication risk/benefits Informed Consent: understands Reason for continued inpatient stay Substantial Risk for: stable for discharge Time Spent With Patient Time: Total time managing care of this patient today ____ minutes.
[2023-06-19] MEDS: FLUoxetine HCl 20 MG CAPSULE PO (09:49)
[2023-06-19] MEDS: Loratadine 10 MG TABLET PO (09:49)
[2023-06-19] MEDS: polyethylene glycoL 3350 17 GM POWD.PACK PO (09:49)
[2023-06-19] MEDS: Omeprazole 20 MG CAPSULE.DR PO ×2 (09:49→21:35)
[2023-06-19] MEDS: Cholecalciferol (Vitamin D3) 25 MCG TABLET 125 MCG PO (09:49)
[2023-06-19] MEDS: Divalproex Sodium Sprinkles 125 MG CAP.DR.SPR 375 MG PO ×3 (09:49→21:34)
[2023-06-19] MEDS: Pregabalin 200 MG CAPSULE PO ×3 (09:49→22:07)
[2023-06-19] MEDS: Apixaban 2.5 MG TABLET PO ×2 (09:49→21:35)
[2023-06-19] MEDS: Fluticasone Propionate Nasal 16 GM SPRAY 1 SPRAY NOSTRIL-B (09:49)
[2023-06-19] MEDS: Lidocaine 4 % Patch ADH..PATCH 2 PATCH TRANSDERMA (09:51)
[2023-06-19] MEDS: LORazepam 1 MG TABLET PO (10:50)
[2023-06-19] MEDS: hydrOXYzine HCL 25 MG TABLET PO (10:50)
[2023-06-19] MEDS: QUEtiapine Fumarate 50 MG TABLET PO (10:50)
[2023-06-19] MEDS: PEG 3350/Na Sulf,Bicarb,Cl/KCL 4,000 ML SOLN.RECON 4000 ML PO (11:25)
[2023-06-19 21:30] VITALS: BP 112/70; PULSE 80; TEMP 36.2; O2SAT 97
[2023-06-19] MEDS: Doxazosin Mesylate 2 MG TABLET PO (21:34)
[2023-06-19] MEDS: QUEtiapine Fumarate 50 MG TABLET 650 MG PO (21:34)
[2023-06-19] MEDS: Chlorhexidine Gluc Oral Rinse 15 ML MOUTHWASH BUCCAL (21:34)
[2023-06-19] MEDS: Famotidine 20 MG TABLET PO (21:35)
[2023-06-19] MEDS: cloNIDine HCL 0.1 MG TABLET PO (21:35)
[2023-06-20] MEDS: Fluticasone Propionate Nasal 16 GM SPRAY 1 SPRAY NOSTRIL-B (08:52)
[2023-06-20] MEDS: Divalproex Sodium Sprinkles 125 MG CAP.DR.SPR 375 MG PO (08:53)
[2023-06-20] MEDS: Loratadine 10 MG TABLET PO (08:53)
[2023-06-20] MEDS: Pregabalin 200 MG CAPSULE PO ×3 (08:53→20:46)
[2023-06-20] MEDS: Cholecalciferol (Vitamin D3) 25 MCG TABLET 125 MCG PO (08:53)
[2023-06-20] MEDS: Apixaban 2.5 MG TABLET PO ×2 (08:53→20:46)
[2023-06-20] MEDS: Omeprazole 20 MG CAPSULE.DR PO ×2 (08:53→20:46)
[2023-06-20] MEDS: FLUoxetine HCl 20 MG CAPSULE PO (08:53)
[2023-06-20] MEDS: hydrOXYzine HCL 25 MG TABLET PO ×3 (09:03→18:41)
[2023-06-20] MEDS: LORazepam 1 MG TABLET PO ×2 (09:03→18:41)
[2023-06-20] MEDS: Lidocaine 4 % Patch ADH..PATCH 2 PATCH TRANSDERMA (09:05)
[2023-06-20 09:21] VITALS: BP 115/67; PULSE 66; RESP 16; TEMP 36.4; O2SAT 97
--- NOTE | 2023-06-20 09:59 | HO.PSYCHPN ---
Subjective Subjective Date of Service: 06/20/23 Reason For Visit: si Interim History: met with patient; discussed with team Patient reports she still depressed and does not think she is ready to leave on Wednesday. Worried that she will not remains stable. Discussed medication and patient wants to see if Depakote can be given all that 1 dose at bedtime. Patient no longer constipated and had copious amounts of diarrhea last night after GoLYTELY; feeling much better however. Diagnostics Vital Signs (24Hr): Vital Signs - 24 hr 06/19/23 21:30 06/20/23 09:21 Temperature 97.2 F 97.6 F Pulse Rate 80 66 Respiratory Rate 16 Blood Pressure 112/70 115/67 Pulse Oximetry 97 97 Oxygen Delivery Method Room Air Room Air BMI result Body Mass Index 28.0 Labs 06/11/23 14:25 06/11/23 14:25 Medications Medications Current Medications Acetaminophen (Acetaminophen 325 Mg Tablet) 650 mg PO Q6H PRN PRN Reason: Pain, Moderate(Pain Scale 4-6) Last Admin: 06/18/23 08:46 Dose: 650 mg Al Hydroxide/Mg Hydroxide (Magnesium Hydrox/Alum Hydrox 30 Ml Oral.Susp) 30 ml PO Q6H PRN PRN Reason: Heartburn/Nausea Last Admin: 06/13/23 09:21 Dose: 30 ml Apixaban (Apixaban 2.5 Mg Tablet) 2.5 mg PO BID [facility] Last Admin: 06/20/23 08:53 Dose: 2.5 mg Bisacodyl (Bisacodyl 10 Mg Supp.Rect) 10 mg [place] DAILY PRN PRN Reason: constipation Last Admin: 06/17/23 14:12 Dose: 10 mg Chlorhexidine Gluconate (Chlorhexidine Gluc Oral Rinse 15 Ml Mouthwash) 15 ml BUCCAL BID [facility] Last Admin: 06/20/23 08:57 Dose: Not Given Clonidine HCl (Clonidine Hcl 0.1 Mg Tablet) 0.1 mg PO BEDTIME DANIEL; Protocol Last Admin: 06/19/23 21:35 Dose: 0.1 mg Clonidine HCl (Clonidine Hcl 0.1 Mg Tablet) 0.1 mg PO Q4H PRN; Protocol PRN Reason: anxiety Dicyclomine HCl (Dicyclomine Hcl 10 Mg Capsule) 10 mg PO TIDWM PRN PRN Reason: GI Upset Divalproex Sodium (Divalproex Sodium Sprinkles 125 Mg ) 375 mg PO TID [facility] Last Admin: 06/20/23 08:53 Dose: 375 mg Doxazosin Mesylate (Doxazosin Mesylate 2 Mg Tablet) 2 mg PO BEDTIME [facility]; Protocol Last Admin: 06/19/23 21:34 Dose: 2 mg Famotidine (Famotidine 20 Mg Tablet) 20 mg PO BEDTIME [facility] Last Admin: 06/19/23 21:35 Dose: 20 mg Fluoxetine HCl (Fluoxetine Hcl 20 Mg Capsule) 20 mg PO DAILY [facility] Last Admin: 06/20/23 08:53 Dose: 20 mg Fluticasone Propionate (Fluticasone Propionate Nasal 16 Gm [place]) 1 spray NOSTRIL-B DAILY [facility] Last Admin: 06/20/23 08:52 Dose: 1 spray Hydroxyzine HCl (Hydroxyzine Hcl 25 Mg Tablet) 25 mg PO Q4H PRN PRN Reason: Anxiety Last Admin: 06/20/23 09:03 Dose: 25 mg Lidocaine (Lidocaine 4 % Patch Adh..Patch) 2 patch TRANSDERMA DAILY [facility] Last Admin: 06/20/23 09:05 Dose: 1 patch Loratadine (Loratadine 10 Mg Tablet) 10 mg PO DAILY [facility] Last Admin: 06/20/23 08:53 Dose: 10 mg Lorazepam (Lorazepam 1 Mg Tablet) 1 mg PO BID PRN PRN Reason: Anxiety Last Admin: 06/20/23 09:03 Dose: 1 mg Magnesium Hydroxide (Milk Of Magnesia 30 Ml Oral.Susp) 30 ml PO DAILY PRN PRN Reason: Constipation Last Admin: 06/18/23 11:25 Dose: 30 ml Plecanatide [ (Trulance] 3 Mg) 1 each PO BEDTIME [facility] Last Admin: 06/19/23 21:33 Dose: 1 each Omeprazole (Omeprazole 20 Mg Capsule.Dr) 20 mg PO BID [facility] Last Admin: 06/20/23 08:53 Dose: 20 mg Ondansetron HCl (Ondansetron Odt 4 Mg Tab.Rapdis) 4 mg TRANSLINGU Q8H PRN PRN Reason: nausea Last Admin: 06/18/23 14:18 Dose: 4 mg Polyethylene Glycol (Polyethylene Glycol 3350 17 Gm Powd.Pack) 17 gm PO BID [facility] Last Admin: 12/17/23 08:53 Dose: Not Given Pregabalin (Pregabalin 200 Mg Capsule) 200 mg PO TID [facility] Last Admin: 06/20/23 08:53 Dose: 200 mg Quetiapine Fumarate (Quetiapine Fumarate 50 Mg Tablet) 650 mg PO BEDTIME [facility] Last Admin: 06/19/23 21:34 Dose: 650 mg Quetiapine Fumarate (Quetiapine Fumarate 50 Mg Tablet) 50 mg PO TID PRN PRN Reason: mild Anxiety Last Admin: 06/19/23 10:50 Dose: 50 mg Quetiapine Fumarate (Quetiapine Fumarate 100 Mg Tablet) 100 mg PO TID PRN PRN Reason: moderate anxiety Sodium Biphosphate/Sodium Phosphate (Sodium Phosphate,[place]-Dibasic 133 Ml Enema) 133 ml [place] ONCE PRN PRN Reason: Constipation Last Admin: 06/15/23 12:47 Dose: 133 ml Sodium Biphosphate/Sodium Phosphate (Sodium Phosphate,[place]-Dibasic 133 Ml Enema) 133 ml [place] DAILY PRN PRN Reason: constipation Last Admin: 06/18/23 20:02 Dose: 133 ml Trazodone HCl (Trazodone Hcl 50 Mg Tablet) 50 mg PO BEDTIME MRX1 PRN PRN Reason: Insomnia Last Admin: 06/18/23 21:22 Dose: 50 mg Vitamin D (Cholecalciferol (Vitamin D3) 25 Mcg Tablet) 125 mcg PO DAILY [facility] Last Admin: 06/20/23 08:53 Dose: 125 mcg Allergies Allergies Allergy/AdvReac Type Severity Reaction Status Date / Time alprazolam [From XANAX] Allergy Unknown UNKNOWN Verified 06/11/23 12:44 carisoprodol [From SOMA] Allergy Unknown UNKNOWN Verified 06/11/23 12:44 cephalexin [From KEFLEX] Allergy Unknown UNKNOWN Verified 06/11/23 12:44 codeine [CODEINE] Allergy Unknown HIVES Verified 06/11/23 12:44 fluconazole [From DIFLUCAN] Allergy Unknown UNKNOWN Verified 06/11/23 12:44 ibuprofen [IBUPROFEN] Allergy Unknown UNKNOWN Verified 06/11/23 12:44 ondansetron [ONDANSETRON] Allergy Unknown HIVES Verified 06/11/23 12:44 propoxyphene Allergy Unknown ITCHING Verified 06/11/23 12:44 [From DARVOCET-N 100] vancomycin [VANCOMYCIN] Allergy Unknown HIVES Verified 06/11/23 12:44 Assessment & Plan Assessment & Plan (1) Acute anxiety: Status: Acute Code(s): F41.9 - Anxiety disorder, unspecified (2) Major depression, chronic: Status: Acute Code(s): F32.9 - Major depressive disorder, single episode, unspecified Plan Robyn meets criteria for IP LOC for safety and stabilization. Current medications were individually reviewed and maintained. She is admitted on a CV. Outpatient connections to be reviewed and renewed. Zoloft was added to her regimen at 25 mg. Side effects were reviewed. 06/14/23 Call pending to [employer] [facility] Continue current regime ?Mood stabilizer trial if pt will allow 06/15/23 Med lists from [facility] were reviewed with pt. Depakote 250 mg tid Increase Chlorhexidine to bid [employer] prn x 1 Miralax increase to bid 06/16/23 Increase Depakote to 375 mg tid Seroquel 100 mg x 1 dose 06/18/23 Tolerating medication changes thus far. Continue regime and plan. 06/19/23 Patient reports she is overall better but still pretty anxious and asks if she can have an additional p.r.n. of Seroquel 100 mg for when she has higher levels of anxiety/agitation. Said she is anticipating discharging at some point next week but would like to see how Depakote works for her. She is interested in changing it to once a day dosing at bedtime. Patient reports continued nightmares and after discussing medications/side effects/risks she agrees to try clonidine both at bedtime and also for anxiety. Patient also reports considerable constipation asking for enema daily and agrees to try GoLYTELY which she said she frequently takes at home for constipation. 06/20 Patient reports she still depressed and does not think she is ready to leave on Wednesday. Worried that she will not remains stable. Discussed medication and patient wants to see if Depakote can be given all that 1 dose at bedtime. Patient no longer constipated and had copious amounts of diarrhea last night after GoLYTELY; feeling much better however. -switched to Depakote ER 1000 mg q.h.s. at patient's request for once a day dosing Patient educated on: diagnosis and medication risk/benefits Informed Consent: understands Reason for continued inpatient stay Substantial Risk for: rapid decompensation Time Spent With Patient Time: Total time managing care of this patient today ____ minutes.
[2023-06-20] MEDS: QUEtiapine Fumarate 100 MG TABLET PO (13:45)
[2023-06-20] MEDS: QUEtiapine Fumarate 50 MG TABLET PO (14:55)
[2023-06-20] MEDS: cloNIDine HCL 0.1 MG TABLET PO ×2 (14:55→20:45)
[2023-06-20] MEDS: Acetaminophen 325 MG TABLET 650 MG PO (14:55)
[2023-06-20 18:00] VITALS: BP 104/66; PULSE 97; RESP 17; TEMP 36.6; O2SAT 91
[2023-06-20 20:30] VITALS: BP 116/74; PULSE 68
[2023-06-20] MEDS: Chlorhexidine Gluc Oral Rinse 15 ML MOUTHWASH BUCCAL (20:44)
[2023-06-20] MEDS: polyethylene glycoL 3350 17 GM POWD.PACK PO (20:44)
[2023-06-20] MEDS: QUEtiapine Fumarate 50 MG TABLET 650 MG PO (20:45)
[2023-06-20] MEDS: Doxazosin Mesylate 2 MG TABLET PO (20:46)
[2023-06-20] MEDS: Famotidine 20 MG TABLET PO (20:46)
[2023-06-20] MEDS: Divalproex Sodium ER 500 MG TAB.ER.24H 1000 MG PO (20:46)
[2023-06-20] MEDS: traZODone HCL 50 MG TABLET PO (22:09)
[2023-06-21] MEDS: QUEtiapine Fumarate 100 MG TABLET PO ×2 (01:38→11:30)
[2023-06-21 08:10] VITALS: BP 104/63; PULSE 72; RESP 18; TEMP 36.5; O2SAT 95
[2023-06-21] MEDS: Apixaban 2.5 MG TABLET PO ×2 (08:57→20:31)
[2023-06-21] MEDS: Chlorhexidine Gluc Oral Rinse 15 ML MOUTHWASH BUCCAL ×2 (08:57→20:31)
[2023-06-21] MEDS: Pregabalin 200 MG CAPSULE PO ×3 (08:57→20:33)
[2023-06-21] MEDS: Cholecalciferol (Vitamin D3) 25 MCG TABLET 125 MCG PO (08:57)
[2023-06-21] MEDS: Omeprazole 20 MG CAPSULE.DR PO ×2 (08:57→20:32)
[2023-06-21] MEDS: Loratadine 10 MG TABLET PO (08:57)
[2023-06-21] MEDS: FLUoxetine HCl 20 MG CAPSULE PO (08:57)
[2023-06-21] MEDS: polyethylene glycoL 3350 17 GM POWD.PACK PO ×2 (08:58→20:30)
[2023-06-21] MEDS: Lidocaine 4 % Patch ADH..PATCH 2 PATCH TRANSDERMA (08:58)
[2023-06-21] MEDS: Acetaminophen 325 MG TABLET 650 MG PO ×2 (09:04→20:48)
[2023-06-21] MEDS: QUEtiapine Fumarate 50 MG TABLET PO ×2 (09:05→14:40)
[2023-06-21] MEDS: Fluticasone Propionate Nasal 16 GM SPRAY 1 SPRAY NOSTRIL-B (09:05)
[2023-06-21] MEDS: hydrOXYzine HCL 25 MG TABLET PO ×3 (09:05→20:46)
--- NOTE | 2023-06-21 09:28 | P.PNPSI_ITS ---
Subjective Subjective Date of Service: 06/21/23 Reason For Visit: si Interim History: met with patient; discussed with team Still with some depression anxiety but overall feels better. Patient reports sleeping well. She was wondering if she should get up Seroquel now that she is on Depakote however agrees to remain on it for now. Says the only reason she was on Seroquel was to help with sleep. She says she will just talk with her outpatient providers about it. Discussed therapy and patient says she is ready to engage, knowing that this is a significant part of pursuing stability. Mental Status Exam Mental Status Exam Patient Appearance: Appropriate Patient Orientation: Person, Place, Time and Situation Level of Consciousness: Alert Patient Behavior: Appropriate, Talkative, Distractible and Good Eye Contact Mood Description: Anxious Affect Description: Anxious Patient Cognition Impaired: No Ability to Follow Directions: Good Speech Pattern: Spontaneous Speech Memory Description: Episodic Impaired Hallucinations: None Delusions: Not Present Thought Process: Distracted Thought Content: positive for Intact (no si/hi) and positive for Circumstantial Abnormal Motor Activity Signs and Symptoms: Restlessness Judgement: Fair Diagnostics Vital Signs (24Hr): Vital Signs - 24 hr 06/20/23 18:00 06/20/23 20:30 Temperature 97.9 F Pulse Rate 97 68 Respiratory Rate 17 Blood Pressure 104/66 116/74 Pulse Oximetry 91 L Oxygen Delivery Method Room Air BMI result Body Mass Index 28.0 Labs 06/11/23 14:25 06/11/23 14:25 Medications Medications Current Medications Acetaminophen (Acetaminophen 325 Mg Tablet) 650 mg PO Q6H PRN PRN Reason: Pain, Moderate(Pain Scale 4-6) Last Admin: 06/21/23 09:04 Dose: 650 mg Al Hydroxide/Mg Hydroxide (Magnesium Hydrox/Alum Hydrox 30 Ml Oral.Susp) 30 ml PO Q6H PRN PRN Reason: Heartburn/Nausea Last Admin: 06/13/23 09:21 Dose: 30 ml Apixaban (Apixaban 2.5 Mg Tablet) 2.5 mg PO BID DANIEL Last Admin: 06/21/23 08:57 Dose: 2.5 mg Bisacodyl (Bisacodyl 10 Mg Supp.Rect) 10 mg AK DAILY PRN PRN Reason: constipation Last Admin: 06/17/23 14:12 Dose: 10 mg Chlorhexidine Gluconate (Chlorhexidine Gluc Oral Rinse 15 Ml Mouthwash) 15 ml BUCCAL BID DANIEL Last Admin: 06/21/23 08:57 Dose: 15 ml Clonidine HCl (Clonidine Hcl 0.1 Mg Tablet) 0.1 mg PO BEDTIME DANIEL; Protocol Last Admin: 06/20/23 20:45 Dose: 0.1 mg Clonidine HCl (Clonidine Hcl 0.1 Mg Tablet) 0.1 mg PO Q4H PRN; Protocol PRN Reason: anxiety Last Admin: 06/20/23 14:55 Dose: 0.1 mg Dicyclomine HCl (Dicyclomine Hcl 10 Mg Capsule) 10 mg PO TIDWM PRN PRN Reason: GI Upset Divalproex Sodium (Divalproex Sodium Er 500 Mg Tab.Er.24h) 1,000 mg PO BEDTIME DANIEL Last Admin: 06/20/23 20:46 Dose: 1,000 mg Doxazosin Mesylate (Doxazosin Mesylate 2 Mg Tablet) 2 mg PO BEDTIME DANIEL; Protocol Last Admin: 06/20/23 20:46 Dose: 2 mg Famotidine (Famotidine 20 Mg Tablet) 20 mg PO BEDTIME DANIEL Last Admin: 06/20/23 20:46 Dose: 20 mg Fluoxetine HCl (Fluoxetine Hcl 20 Mg Capsule) 20 mg PO DAILY DANIEL Last Admin: 06/21/23 08:57 Dose: 20 mg Fluticasone Propionate (Fluticasone Propionate Nasal 16 Gm [place]) 1 spray NOSTRIL-B DAILY DANIEL Last Admin: 06/21/23 09:05 Dose: 1 spray Hydroxyzine HCl (Hydroxyzine Hcl 25 Mg Tablet) 25 mg PO Q4H PRN PRN Reason: Anxiety Last Admin: 06/21/23 09:05 Dose: 25 mg Lidocaine (Lidocaine 4 % Patch Adh..Patch) 2 patch TRANSDERMA DAILY DANIEL Last Admin: 06/21/23 08:58 Dose: 2 patch Loratadine (Loratadine 10 Mg Tablet) 10 mg PO DAILY DANIEL Last Admin: 06/21/23 08:57 Dose: 10 mg Lorazepam (Lorazepam 1 Mg Tablet) 1 mg PO BID PRN PRN Reason: Anxiety Last Admin: 06/20/23 18:41 Dose: 1 mg Magnesium Hydroxide (Milk Of Magnesia 30 Ml Oral.Susp) 30 ml PO DAILY PRN PRN Reason: Constipation Last Admin: 06/18/23 11:25 Dose: 30 ml Plecanatide [ (Trulance] 3 Mg) 1 each PO BEDTIME [facility] Last Admin: 06/20/23 20:43 Dose: 1 each Omeprazole (Omeprazole 20 Mg Capsule.Dr) 20 mg PO BID [facility] Last Admin: 06/21/23 08:57 Dose: 20 mg Ondansetron HCl (Ondansetron Odt 4 Mg Tab.Rapdis) 4 mg TRANSLINGU Q8H PRN PRN Reason: nausea Last Admin: 06/18/23 14:18 Dose: 4 mg Polyethylene Glycol (Polyethylene Glycol 3350 17 Gm Powd.Pack) 17 gm PO BID [facility] Last Admin: 06/21/23 08:58 Dose: 17 gm Pregabalin (Pregabalin 200 Mg Capsule) 200 mg PO TID [facility] Last Admin: 06/21/23 08:57 Dose: 200 mg Quetiapine Fumarate (Quetiapine Fumarate 50 Mg Tablet) 650 mg PO BEDTIME [facility] Last Admin: 06/20/23 20:45 Dose: 650 mg Quetiapine Fumarate (Quetiapine Fumarate 50 Mg Tablet) 50 mg PO TID PRN PRN Reason: mild Anxiety Last Admin: 06/21/23 09:05 Dose: 50 mg Quetiapine Fumarate (Quetiapine Fumarate 100 Mg Tablet) 100 mg PO TID PRN PRN Reason: moderate anxiety Last Admin: 06/21/23 01:38 Dose: 100 mg Sodium Biphosphate/Sodium Phosphate (Sodium Phosphate,[place]-Dibasic 133 Ml Enema) 133 ml AK ONCE PRN PRN Reason: Constipation Last Admin: 06/15/23 12:47 Dose: 133 ml Sodium Biphosphate/Sodium Phosphate (Sodium Phosphate,[place]-Dibasic 133 Ml Enema) 133 ml AK DAILY PRN PRN Reason: constipation Last Admin: 06/18/23 20:02 Dose: 133 ml Trazodone HCl (Trazodone Hcl 50 Mg Tablet) 50 mg PO BEDTIME MRX1 PRN PRN Reason: Insomnia Last Admin: 06/20/23 22:09 Dose: 50 mg Vitamin D (Cholecalciferol (Vitamin D3) 25 Mcg Tablet) 125 mcg PO DAILY [facility] Last Admin: 06/21/23 08:57 Dose: 125 mcg Allergies Allergies Allergy/AdvReac Type Severity Reaction Status Date / Time alprazolam [From XANAX] Allergy Unknown UNKNOWN Verified 06/11/23 12:44 carisoprodol [From SOMA] Allergy Unknown UNKNOWN Verified 06/11/23 12:44 cephalexin [From KEFLEX] Allergy Unknown UNKNOWN Verified 06/11/23 12:44 codeine [CODEINE] Allergy Unknown HIVES Verified 06/11/23 12:44 fluconazole [From DIFLUCAN] Allergy Unknown UNKNOWN Verified 06/11/23 12:44 ibuprofen [IBUPROFEN] Allergy Unknown UNKNOWN Verified 06/11/23 12:44 ondansetron [ONDANSETRON] Allergy Unknown HIVES Verified 06/11/23 12:44 propoxyphene Allergy Unknown ITCHING Verified 06/11/23 12:44 [From DARVOCET-N 100] vancomycin [VANCOMYCIN] Allergy Unknown HIVES Verified 06/11/23 12:44 Assessment & Plan Assessment & Plan (1) Acute anxiety: Status: Acute Code(s): F41.9 - Anxiety disorder, unspecified (2) Major depression, chronic: Status: Acute Code(s): F32.9 - Major depressive disorder, single episode, unspecified Plan Robyn meets criteria for IP LOC for safety and stabilization. Current medications were individually reviewed and maintained. She is admitted on a CV. Outpatient connections to be reviewed and renewed. Zoloft was added to her regimen at 25 mg. Side effects were reviewed. 06/14/23 Call pending to [facility] med list verified Continue current regime ?Mood stabilizer trial if pt will allow 06/15/[address] [facility] and [facility] were reviewed with pt. Depakote 250 mg tid Increase Chlorhexidine to bid [employer] prn x 1 Miralax increase to bid 06/16/23 Increase Depakote to 375 mg tid Seroquel 100 mg x 1 dose 06/18/23 Tolerating medication changes thus far. Continue regime and plan. 06/19/23 Patient reports she is overall better but still pretty anxious and asks if she can have an additional p.r.n. of Seroquel 100 mg for when she has higher levels of anxiety/agitation. Said she is anticipating discharging at some point next week but would like to see how Depakote works for her. She is interested in changing it to once a day dosing at bedtime. Patient reports continued nightmares and after discussing medications/side effects/risks she agrees to try clonidine both at bedtime and also for anxiety. Patient also reports considerable constipation asking for enema daily and agrees to try GoLYTELY which she said she frequently takes at home for constipation. 06/20 Patient reports she still depressed and does not think she is ready to leave on Wednesday. Worried that she will not remains stable. Discussed medication and patient wants to see if Depakote can be given all that 1 dose at bedtime. Patient no longer constipated and had copious amounts of diarrhea last night after GoLYTELY; feeling much better however. -switched to Depakote ER 1000 mg q.h.s. at patient's request for once a day dosing 06/21 Still with some depression anxiety but overall feels better. Patient reports sleeping well. She was wondering if she should get up Seroquel now that she is on Depakote however agrees to remain on it for now. Says the only reason she was on Seroquel was to help with sleep. She says she will just talk with her outpatient providers about it. Discussed therapy and patient says she is ready to engage, knowing that this is a significant part of pursuing stability. Patient has significantly improved since admission. Mood is improved; no SI. Patient feels stable and is future oriented. Though she remains at risk for relapse and mood dysregulation she is not in imminent risk for harm to self or others and appropriate to return to the community for treatment. Patient educated on: diagnosis and medication risk/benefits Informed Consent: understands Reason for continued inpatient stay Substantial Risk for: stable for discharge Time Spent With Patient Time: Total time managing care of this patient today ____ minutes.
[2023-06-21] MEDS: LORazepam 1 MG TABLET PO (12:24)
[2023-06-21 13:58] LABS: Alanine Aminotransferase 37 U/L (0-31); Albumin Level 4.1 g/dL (3.5-5.0); Alkaline Phosphatase 63 U/L (39-117); Aspartate Amino Transferase 18 U/L (5-31); Bilirubin Direct < 0.2 mg/dL (0.0-0.5); Bilirubin Total 0.2 mg/dL (0.0-1.0); Total Protein 7.2 g/dL (6.5-8.0)
[2023-06-21 14:00] LABS: Ammonia 30 umol/L (13-55)
[2023-06-21 16:00] VITALS: BP 112/82; PULSE 78; RESP 16; TEMP 36.6; O2SAT 97
[2023-06-21] MEDS: Doxazosin Mesylate 2 MG TABLET PO (20:30)
[2023-06-21] MEDS: Famotidine 20 MG TABLET PO (20:31)
[2023-06-21] MEDS: cloNIDine HCL 0.1 MG TABLET PO (20:31)
[2023-06-21] MEDS: Divalproex Sodium ER 500 MG TAB.ER.24H 1000 MG PO (20:31)
[2023-06-21] MEDS: QUEtiapine Fumarate 50 MG TABLET 650 MG PO (20:33)
[2023-06-21] MEDS: bisacodyL 10 MG SUPP.RECT PR (21:55)
[2023-06-22] MEDS: QUEtiapine Fumarate 100 MG TABLET PO ×2 (00:06→09:47)
[2023-06-22] MEDS: LORazepam 1 MG TABLET PO ×2 (00:10→09:47)
[2023-06-22] MEDS: traZODone HCL 50 MG TABLET PO (00:11)
[2023-06-22 09:00] VITALS: BP 107/60; PULSE 73; RESP 16; TEMP 36.8; O2SAT 96
[2023-06-22] MEDS: polyethylene glycoL 3350 17 GM POWD.PACK PO (09:26)
[2023-06-22] MEDS: Apixaban 2.5 MG TABLET PO (09:27)
[2023-06-22] MEDS: Cholecalciferol (Vitamin D3) 25 MCG TABLET 125 MCG PO (09:27)
[2023-06-22] MEDS: Fluticasone Propionate Nasal 16 GM SPRAY 1 SPRAY NOSTRIL-B (09:27)
[2023-06-22] MEDS: FLUoxetine HCl 10 MG CAPSULE 30 MG PO (09:27)
[2023-06-22] MEDS: Pregabalin 200 MG CAPSULE PO (09:27)
[2023-06-22] MEDS: Loratadine 10 MG TABLET PO (09:27)
[2023-06-22] MEDS: Omeprazole 20 MG CAPSULE.DR PO (09:27)
[2023-06-22] MEDS: Lidocaine 4 % Patch ADH..PATCH 2 PATCH TRANSDERMA (09:30)
[2023-06-22] MEDS: Naloxone HCl Nasal TAKE HOME 4 MG SPRAY 8 MG NOSTRILALT (09:46)
[2023-06-22] MEDS: hydrOXYzine HCL 25 MG TABLET PO (09:47)
[2023-06-22] MEDS: QUEtiapine Fumarate 50 MG TABLET PO (11:01)
--- NOTE | 2023-06-24 05:04 | PM.PSYDC ---
DS: Providers Provider Date of Service: 06/24/23 Date of admission: 06/12/23 16:41 Date of discharge: 06/24/23 Primary care physician: JEREMY Marte Admitting clinician: Benigno Leal Attending physician on admission: Benigno Leal Attending physician on discharge: Alireza Santiago Discharging clinician: Kristyn Colvin DS: Diagnosis Discharge Diagnosis (1) Acute anxiety: Status: Resolved (2) Major depression, chronic: Status: Acute DS: Medications Discharge Medications Home Medications: Home Medications Medication Instructions Recorded Confirmed apixaban 2.5 mg tablet (Eliquis) 2.5 mg PO BID 03/26/23 06/12/23 bisacodyl 10 mg rectal suppository 10 mg [place] DAILY PRN constipation 03/26/23 06/12/23 cetirizine 10 mg tablet 10 mg PO DAILY 03/26/23 06/12/23 cholecalciferol (vitamin D3) 125 125 mcg PO DAILY 03/26/23 06/12/23 mcg (5,000 unit) tablet (Vitamin D3) dicyclomine 10 mg capsule 10 mg PO TIDWM PRN Stomach Upset 03/26/23 06/12/23 famotidine 20 mg tablet 20 mg PO BEDTIME 03/26/23 06/12/23 fluticasone propionate 50 50 spray intranasal DAILY 03/26/23 06/12/23 mcg/actuation nasal spray,suspension lidocaine 5 % topical patch 2 patch topical Q12H 03/26/23 06/12/23 ondansetron 4 mg disintegrating 8 mg PO Q8H PRN nausea 03/26/23 06/12/23 tablet pantoprazole 40 mg tablet,delayed 40 mg PO QAM 03/26/23 06/12/23 release plecanatide 3 mg tablet (Trulance) 3 mg PO DAILY 03/26/23 06/12/23 pregabalin 200 mg capsule 200 mg PO TID 03/26/23 06/12/23 acetaminophen 500 mg capsule 1,000 mg PO TID PRN Fever Or Pain 06/12/23 06/12/23 Previous Rx's Medication Instructions Recorded chlorhexidine gluconate 0.12 % 15 ml buccal BID #0 mL 06/21/23 mouthwash clonidine HCl 0.1 mg tablet 0.1 mg PO Q4H PRN anxiety and 06/21/23 insomnia 30 days #90 tabs divalproex 500 mg tablet,extended 1,000 mg (2 x 500 mg) PO BEDTIME 06/21/23 release 24 hr 30 days #60 tabs doxazosin 2 mg tablet 2 mg PO BEDTIME 30 days #30 tabs 06/21/23 fluoxetine 10 mg capsule 30 mg (3 x 10 mg) PO DAILY 30 days 06/21/23 #90 caps hydroxyzine HCl 25 mg tablet 25 mg PO Q4H PRN Anxiety 30 days 06/21/23 #90 tabs lorazepam 1 mg tablet 1 mg PO BID PRN anxiety 30 days 06/21/23 #60 tabs polyethylene glycol 3350 17 gram 17 g PO BID #0 ea 06/21/23 oral powder packet quetiapine 300 mg tablet 600 mg (2 x 300 mg) PO BEDTIME 30 06/21/23 days #60 tabs quetiapine 50 mg tablet See Rx Instructions .Route 06/21/23 .COMPLEX 30 days #90 tabs trazodone 50 mg tablet 50 mg PO BEDTIME PRN Insomnia 30 06/21/23 days #30 tabs Mental Status Exam Mental Status Exam Patient Appearance: Appropriate Patient Orientation: Person, Place, Time and Situation Level of Consciousness: Alert Patient Behavior: Talkative, Distractible and Good Eye Contact Mood Description: Anxious Affect Description: Anxious Patient Cognition Impaired: No Ability to Follow Directions: Good Speech Pattern: Spontaneous Speech Memory Description: Episodic Impaired Hallucinations: None Delusions: Not Present Thought Process: Distracted Thought Content: positive for Circumstantial Depressive Symptoms: Increased Anxiety, Increased Irritability and Thoughts of /Suicide (denies) Abnormal Motor Activity Signs and Symptoms: Restlessness Judgement: Fair Data Data Completed and Pending Completed studies during hospitalization [Text1]: 06/21/23 13:36 Total Bilirubin 0.2 Direct Bilirubin < 0.2 AST 18 ALT 37 H Alkaline Phosphatase 63 Ammonia 30 Total Protein 7.2 Albumin 4.1 Valproic Acid 69.0 DS: Summary Hospital Course Hospital Course: Admission to adult psychiatry for exacerbation of recurrent major depression and relapse on cocaine. Pt reports being off medications for approximately 4 weeks due to a reported missed appointment with out patient team. Regime was re-established. Pt was offered full milieu treatment. She will discharge to partner's home and [facility] and medication [facility]. Status at Discharge Functional status at discharge: independent ambulation Overall status at discharge: patient is progressing back to baseline Time Spent with Patient Time attestation: Total time managing care of this patient today ____ minutes. Time spent: Greater than 30 minutes Discharge Plan Discharge Anticipated Discharge Date/Time: 06/22/23 23:30 Patient Disposition: Home, Self-Care Discharge Diagnosis: MDD, recurrent, severe w/out psychoses in partial remission Referrals[facility] - [facility]07/23 2:00 pm (The intake appointment is via Zoom. You will receive a link via text the day before. If for some reason, the therapist doesn't see you on Zoom because it isn't working, she will call your phone. Call the above number with any questions. Once you complete this appointment, you will be assigned a lead case manager who will get you a therapist, psychiatrist and lead case manager at [facility]'s [place] office. ) [facility] [Other] (Walk in if medical attention is needed.) Sharon Hilton FNP-C [Primary Care Provider] - (PT. REFUSED US TO CONTACT PCP) Discharge Medications: New hydroxyzine HCl 25 mg Tablet 25 mg PO Q4H PRN (Reason: Anxiety) 30 Days Qty: 90 0RF trazodone 50 mg Tablet 50 mg PO BEDTIME PRN (Reason: Insomnia) 30 Days Qty: 30 0RF polyethylene glycol 3350 17 gram Powder In Packet 17 g PO BID Qty: 0 0RF divalproex [Depakote ER] 500 mg tablet extended release 24 hr 1,000 mg PO BEDTIME 30 Days Qty: 60 0RF fluoxetine [Prozac] 10 mg capsule 30 mg PO DAILY 30 Days Qty: 90 0RF clonidine HCl 0.1 mg tablet 0.1 mg PO TID PRN (Reason: anxiety) 30 Days Qty: 90 0RF Continued cetirizine 10 mg tablet 10 mg PO DAILY famotidine 20 mg tablet 20 mg PO BEDTIME pantoprazole 40 mg tablet,delayed release (DR/EC) 40 mg PO QAM lidocaine 5 % adhesive patch,medicated 2 patch topical Q12H ondansetron 4 mg tablet,disintegrating 8 mg PO Q8H PRN (Reason: nausea) dicyclomine 10 mg capsule 10 mg PO TIDWM PRN (Reason: Stomach Upset) pregabalin 200 mg capsule 200 mg PO TID cholecalciferol (vitamin D3) [Vitamin D3] 125 mcg (5,000 unit) tablet 125 mcg PO DAILY Eliquis 2.5 mg tablet 2.5 mg PO BID Trulance 3 mg tablet 3 mg PO DAILY quetiapine 300 mg tablet 600 mg PO BEDTIME 30 Days Qty: 60 0RF Changed quetiapine 50 mg Tablet See Rx Instructions .ROUTE .COMPLEX 30 Days Qty: 90 0RF Rx Instructions: Take 1-2 tablets up to 3 times a day as needed for anxiety Discontinued lorazepam 1 mg tablet 1 mg PO BID PRN (Reason: anxiety) Discharge Orders: Discharge Order (Routine); Ordered 06/22/23 Ordered By: Siddharth Solis Diet: Regular diet Activity on Discharge: As tolerated Stand Alone Forms: Patient Portal Discharge page, Community Support Care Plan Goals: Maintain mood and safe behaviors Take medications as prescribed Continue to pursue sobriety Practice coping skills Continue with outpatient providers and reach out to them as needed Health Concerns: Mood stability and behaviors Sobriety Factor V leiden deficiency Chronic back pain IBS Plan of Treatment: Follow up with your PCP, psychiatric provider and other outpatient providers regarding above concerns Take medications as prescribed Assessment: Risk assessment at time of discharge:? Patient was interviewed prior to discharge and found to be fully oriented and without any SI or HI. Patient has improved insight and judgment and wants to continue treatment. Patient is not in imminent risk of harm to self or others and has a safety plan that includes presenting to the closest ER or calling 911 if feeling unsafe.? Patient has been observed closely by nursing and unit staff throughout admission; patient has not engaged in any behaviors that suggest dangerousness to self or others and has demonstrated appropriate behaviors and impulse control Discharge Date/Time: 06/22/23 11:38
--- NOTE | 2023-06-25 01:56 | PC.NURSE ---
Late entry for June. Patient was given Lorazepam 1 mg po at 1955 as a prn for anxiety. Medication was scanned, but apparently did not register on the MAR
== END 2023-06-22 11:38 | disposition home or self-care (01) | DRG 751 ==
LOC: HO.ED 06-12 16:35 → HO.PM5 06-12 17:02
PROVIDERS: Nurse Practitioner Family; Physician Assistant; Psychiatry & Neurology Psychiatry; Social Worker; Admitting Provider Psychiatry & Neurology Psychiatry; Emergency Provider Emergency Medicine; PCP Registered Nurse Oncology; Visit Provider Clinical Nurse Specialist Psychiatric/Mental Health, Adult
DX: F33.2 Major depressive disorder, recurrent severe without psychotic features (principal); D68.51 Activated protein C resistance; F41.9 Anxiety disorder, unspecified; Z20.822 Contact with and (suspected) exposure to COVID-19; Z62.810 Personal history of physical and sexual abuse in childhood; Z79.01 Long term (current) use of anticoagulants; Z79.899 Other long term (current) drug therapy
CPT/HCPCS: 36415; 80053; 80076; 80143; 80164; 80179; 80307; 81001; 81025; 82140; 85025; 87635; 90686; 93005; 99285; S9485

== ENCOUNTER → 2023-06-12 14:12 | Outpatient (BNV) | payer OTHER, SELFPAY | PROVIDERS: Admitting Provider Psychiatry & Neurology Psychiatry; Emergency Provider Emergency Medicine; PCP Registered Nurse Oncology; Visit Provider Internal Medicine | DX: R94.31 Abnormal electrocardiogram [ECG] [EKG] (principal) | CPT/HCPCS: 93010 ==

== ENCOUNTER → 2023-06-12 16:41 | Outpatient (BNV) | payer OTHER, SELFPAY | PROVIDERS: Admitting Provider Psychiatry & Neurology Psychiatry; Emergency Provider Emergency Medicine; PCP Registered Nurse Oncology; Visit Provider Psychiatry & Neurology Psychiatry | DX: F33.2 Major depressive disorder, recurrent severe without psychotic features (principal); F41.9 Anxiety disorder, unspecified | CPT/HCPCS: 99231 ==

== ENCOUNTER → 2023-06-12 16:41 | Outpatient (BNV) | payer OTHER, SELFPAY | PROVIDERS: Admitting Provider Psychiatry & Neurology Psychiatry; Emergency Provider Emergency Medicine; PCP Registered Nurse Oncology; Visit Provider Psychiatry & Neurology Psychiatry | DX: F33.2 Major depressive disorder, recurrent severe without psychotic features (principal); F41.9 Anxiety disorder, unspecified | CPT/HCPCS: 99231; 99232 ==

== ENCOUNTER 2023-09-01 14:37 | Emergency (ER) | payer OTHER, SELFPAY ==
--- NOTE | 2023-09-01 14:53 | ED_ITS ---
HPI - Psych General Chief Complaint: Psychiatric Symptoms Stated Complaint: Crisis Time Seen by Provider: 09/01/23 15:19 History of Present Illness HPI Narrative: The patient is a 48-year-old female with chronic mental illness who came to the hospital today voluntarily. She was driven here by her boyfriend from her home in [place]. She has a long-time history of psychiatric illness including depression, anxiety, and panic attacks with multiple hospitalizations. The patient was last psychiatrically hospitalized at this hospital 2 months ago in June 2023. She was hospitalized from June 13 through June 24. Her medical history includes pulmonary emboli and factor 5 Leiden deficiency. She is on anticoagulation with apixaban. The patient says that when she was discharged from this hospital 2 months ago she was referred to an outpatient clinic in [place] because she was living in [place] at the time. She said the transportation was a challenge for that clinic. She has subsequently moved to [place], [place] and arranged for a psychiatric medication appointment through clinical and support options in [place] ([facility]). She says that at her appointment with the psychiatric nurse prescriber at [facility] the prescriber made a decision to stop prescribing lorazepam. This was very upsetting to the patient and she has been extremely anxious ever since her lorazepam was stopped. She says that she has been unable to sleep for several days and feels profoundly anxious since the lorazepam was stopped a couple of weeks ago and she cannot manage in this fashion. She therefore came to the hospital. She denies any fever, sweats, chills. She believes she has gained about 20 lb in the last 2 months. She is complaining of some mild pain in her right elbow that she thinks may have developed after she was lying on her right side for a long time. No definite injury or trauma. She is able to move the elbow. No numbness or tingling in the hand. Related Data Home Medications Medication Instructions Recorded Confirmed apixaban 2.5 mg tablet (Eliquis) 2.5 mg PO BID 03/26/23 09/01/23 cetirizine 10 mg tablet 10 mg PO DAILY 03/26/23 09/01/23 cholecalciferol (vitamin D3) 125 125 mcg PO DAILY 03/26/23 09/01/23 mcg (5,000 unit) tablet (Vitamin D3) dicyclomine 10 mg capsule 10 mg PO TIDWM PRN Stomach Upset 03/26/23 09/01/23 famotidine 20 mg tablet 20 mg PO BEDTIME 03/26/23 09/01/23 lidocaine 5 % topical patch 2 patch topical Q12H 03/26/23 09/01/23 ondansetron 4 mg disintegrating 8 mg PO Q8H PRN nausea 03/26/23 09/01/23 tablet pantoprazole 40 mg tablet,delayed 40 mg PO QAM 03/26/23 09/01/23 release plecanatide 3 mg tablet (Trulance) 3 mg PO DAILY 03/26/23 09/01/23 pregabalin 200 mg capsule 200 mg PO TID 03/26/23 09/01/23 Previous Rx's Medication Instructions Recorded hydroxyzine HCl 25 mg tablet 25 mg PO Q4H PRN Anxiety 30 days 06/21/23 #90 tabs polyethylene glycol 3350 17 gram 17 g PO BID #0 ea 06/21/23 oral powder packet quetiapine 300 mg tablet 600 mg (2 x 300 mg) PO BEDTIME 30 06/21/23 days #60 tabs quetiapine 50 mg tablet See Rx Instructions .Route 06/21/23 .COMPLEX 30 days #90 tabs trazodone 50 mg tablet 50 mg PO BEDTIME PRN Insomnia 30 06/21/23 days #30 tabs clonidine HCl 0.1 mg tablet 0.1 mg PO TID PRN anxiety 30 days 07/24/23 #90 tabs divalproex 500 mg tablet,extended 1,000 mg (2 x 500 mg) PO BEDTIME 07/24/23 release 24 hr (Depakote ER) 30 days #60 tabs fluoxetine 10 mg capsule (Prozac) 30 mg (3 x 10 mg) PO DAILY 30 days 07/24/23 #90 caps Allergies Allergy/AdvReac Type Severity Reaction Status Date / Time alprazolam [From XANAX] Allergy Unknown UNKNOWN Verified 09/01/23 14:54 carisoprodol [From SOMA] Allergy Unknown UNKNOWN Verified 09/01/23 14:54 cephalexin [From KEFLEX] Allergy Unknown UNKNOWN Verified 09/01/23 14:54 codeine [CODEINE] Allergy Unknown HIVES Verified 09/01/23 14:54 fluconazole [From DIFLUCAN] Allergy Unknown UNKNOWN Verified 09/01/23 14:54 ibuprofen [IBUPROFEN] Allergy Unknown UNKNOWN Verified 09/01/23 14:54 propoxyphene Allergy Unknown ITCHING Verified 09/01/23 14:54 [From DARVOCET-N 100] vancomycin [VANCOMYCIN] Allergy Unknown HIVES Verified 09/01/23 14:54 Review of Systems 2 Review of Systems: Yes all other systems are reviewed and are negative [facility] Past Medical History Medical History Anxiety Dilatation, esophagus, congenital Factor V Leiden Family History Family History (Updated 03/26/23 @ 13:11 by Chace Day) Father Throat cancer Social History Social History Household Members: Spouse Household Members Other:: Jeradzonia Sanchez Housing: Apartment Do you presently have visiting nurse or other home services: No Alcohol intake: current Alcohol intake frequency: a few times a month Alcohol type: beer and hard liquor Patient Tobacco Use Status: Never used Tobacco Smoked in Last 30 Days: No e-Cigarette/Vaping Use: Never Used Second Hand Smoke Exposure: No Use of substances other than those prescribed or required for medical reasons: No Substance Use Type: Crack/Cocaine Advance Directives: No Advance Directives Information Provided: No Healthcare Proxy: No Guardian: No Patient : No service: No Current occupational status: disabled Sexual orientation: Straight/Heterosexual Physical Exam 2 Vital Signs: Vital Signs: Last Vital Signs Temp 98 F 09/01/23 14:54 Pulse 75 09/01/23 14:54 Resp 16 09/01/23 16:00 BP 111/75 09/01/23 14:54 Pulse Ox 97 09/01/23 14:54 O2 Del Method Room Air 09/01/23 14:54 BMI result Body Mass Index 32.3 Const: Other: The patient is awake and alert. She has an intense affect. She is mildly hyperverbal. HEENT: Other: Face is symmetrical. Tongue is midline. Eyes: Other: Pupils are round equal, conjunctivae clear, extraocular movements intact. Neck: Other: Moving her neck easily, no JVD Resp: Effort & Inspection: normal respiratory effort Auscultation: clear to auscultation bilaterally Cardio: Rate: regular rate Rhythm: regular rhythm Heart sounds: S1 normal heart sound present and S2 normal heart sound present GI: Other: Abdomen is soft and nontender Skin: Other: Skin is dry and unremarkable Neuro: Other: The patient is awake and alert and oriented. She has some mildly pressured speech and is somewhat hyperverbal but otherwise has a normal mental status. Cranial nerves are grossly intact. She moves all 4 extremities normally. She has normal coordination. Her gait is normal. No focal neurological deficits. Extrem: Other: No peripheral edema. Psych: Other: The patient looks reasonably well kempt. She has some very mild pressure to her speech and she is mildly hyperverbal. Course Course Course Narrative: This is a rapid medical exam: Additional HPI, ROS, PE not included below will be deferred to primary provider. Patient is a 48-year-old female presenting to the ED with complaint of anxiety, shortness of breath, difficulty with vision, stuttering. States she was recently admitted here for psychiatric treatment, referred to psychiatrist in [place], [facility] the provider there at [facility] made significant changes to her medications including discontinuing her Ativan around one month ago. Has been having symptoms since. Denies SI/HI. Plan: med clearance, CARE team eval Medications Administered Discontinued Medications Generic Name Dose Route Start Last Admin Trade Name Freq PRN Reason Stop Dose Admin Lorazepam 1 mg 09/01/23 16:09 09/01/23 16:34 Lorazepam 1 Mg Tablet PO 09/01/23 16:10 1 mg ONCE ONE Administration Medical Decision Making Medical Decision Making [facility] Narrative: The patient is a 48-year-old woman with a long history of anxiety, depression, and panic attacks who was recently taken off lorazepam by a new psychiatric prescriber at [facility] in [place]. I believe she has been off lorazepam for a couple of weeks and is finding the experience extremely unpleasant and difficult to manage. She does not describe any significant medical symptoms and I think she is medically clear for evaluation by the care team. I have ordered a dose of lorazepam. The patient will be signed out at the end of my shift. Lab Data 09/01/23 15:11 09/01/23 15:11 Labs: Lab Results 09/01/23 09/01/23 09/01/23 Range/Units 15:11 17:09 17:10 WBC 6.2 (4.8-10.8) X10*3/uL RBC 3.83 L (4.20-5.50) X10*6/uL Hgb 12.0 (12.0-16.0) g/dl Hct 34.9 L (37.0-47.0) % MCV 91.1 (80.0-98.0) fL MCH 31.3 (27.0-33.0) pg MCHC 34.4 (31.0-35.0) g/dl RDW 13.2 (11.0-16.0) % Plt Count 325 (160-400) X10*3/uL MPV 10.4 (9.4-12.3) fL Immature Gran % (Auto) 0.2 (0.0-0.4) % Neut % (Auto) 48.3 (45-73) % Lymph % (Auto) 43.3 H (20-40) % [place] % (Auto) 5.0 (2-11) % Eos % (Auto) 2.4 (0-4) % Baso % (Auto) 0.8 (0-2) % Lymph # (Auto) 2.7 (1.2-4.9) X10*3/uL [place] # (Auto) 0.3 (0.1-1.2) X10*3/uL Eos # (Auto) 0.2 (0.0-0.4) X10*3/uL Baso # (Auto) 0.1 (0.0-0.2) X10*3/uL Abs Immat Gran (auto) 0.01 (0.00-0.03) X10*3/uL Absolute Neuts (auto) 3.0 (2.0-8.3) x10*3/uL Absolute Nucleated RBC 0.000 (0.0-0.012) X10*3/uL Nucleated RBC % (auto) 0.0 (0.0-0.2) /100WBC Sodium 139 (135-145) mmol/L Potassium 3.9 (3.3-5.1) mmol/L Chloride 107 (96-108) mmol/L Carbon Dioxide 25 (22-29) mmol/L Anion Gap 11 L (12-20) BUN 16 (9-16) mg/dL Creatinine 0.82 (0.5-1.4) mg/dL Estim Creat Clear Calc 69.5 Estimated GFR > 60 Random Glucose 101 (60-115) mg/dL Calcium 9.2 (8.4-10.2) mg/dL Total Bilirubin 0.2 (0.0-1.0) mg/dL AST 30 (5-31) U/L ALT 34 H (0-31) U/L Alkaline Phosphatase 54 (39-117) U/L Total Protein 7.1 (6.5-8.0) g/dL Albumin 4.2 (3.5-5.0) g/dL Urine Color Yellow Urine Appearance Clear Urine pH 5.5 (5.0-9.0) Ur Specific Boyds 1.010 (1.005-1.025) Urine Protein Negative (Neg-Trace) mg/dL Urine Glucose (UA) Negative (Negative) mg/dL Urine Ketones Negative (Negative) mg/dL Urine Blood Negative (Negative) Urine Nitrite Negative (Negative) Ur Leukocyte Esterase Negative (Negative) Urine Opiates Screen Not Detected (Not Detect) Urine Fentanyl Screen Not Detected (Not Detect) Ur Barbiturates Screen Not Detected (Not Detect) Ur Phencyclidine Scrn Not Detected (Not Detect) Ur Amphetamines Screen Not Detected (Not Detect) U Benzodiazepines Scrn Not Detected (Not Detect) Urine Cocaine Screen Not Detected (Not Detect) U Marijuana (THC) Screen Not Detected (Not Detect) Ethyl Alcohol < 10 mg/dL COVID-19 (MONALISA) Negative (Negative) COVID-19 Clin Com See Note Independent Interpretation I performed an independent interpretation of an: EKG Interpretation: EKG at 15:05 shows normal sinus rhythm at 73 beats per minute. There are nonspecific T-wave findings but no significant change from previous. Discharge Plan Discharge Clinical Impression: Depression, Anxiety Patient Disposition: Still a Patient Prescriptions: No Action cetirizine 10 mg tablet 10 mg PO DAILY famotidine 20 mg tablet 20 mg PO BEDTIME pantoprazole 40 mg tablet,delayed release (DR/EC) 40 mg PO QAM lidocaine 5 % adhesive patch,medicated 2 patch topical Q12H ondansetron 4 mg tablet,disintegrating 8 mg PO Q8H PRN (Reason: nausea) dicyclomine 10 mg capsule 10 mg PO TIDWM PRN (Reason: Stomach Upset) pregabalin 200 mg capsule 200 mg PO TID cholecalciferol (vitamin D3) [Vitamin D3] 125 mcg (5,000 unit) tablet 125 mcg PO DAILY Eliquis 2.5 mg tablet 2.5 mg PO BID Trulance 3 mg tablet 3 mg PO DAILY hydroxyzine HCl 25 mg Tablet 25 mg PO Q4H PRN (Reason: Anxiety) 30 Days Qty: 90 0RF trazodone 50 mg Tablet 50 mg PO BEDTIME PRN (Reason: Insomnia) 30 Days Qty: 30 0RF polyethylene glycol 3350 17 gram Powder In Packet 17 g PO BID Qty: 0 0RF quetiapine 300 mg tablet 600 mg PO BEDTIME 30 Days Qty: 60 0RF quetiapine 50 mg Tablet See Rx Instructions .ROUTE .COMPLEX 30 Days Qty: 90 0RF Rx Instructions: Take 1-2 tablets up to 3 times a day as needed for anxiety divalproex [Depakote ER] 500 mg tablet extended release 24 hr 1,000 mg PO BEDTIME 30 Days Qty: 60 0RF fluoxetine [Prozac] 10 mg capsule 30 mg PO DAILY 30 Days Qty: 90 0RF clonidine HCl 0.1 mg tablet 0.1 mg PO TID PRN (Reason: anxiety) 30 Days Qty: 90 0RF Interventions: [place]-Suicide Risk Severity Scale Last Done: 09/01/23 16:31
[2023-09-01 14:54] VITALS: BP 111/75; PULSE 75; RESP 19; TEMP 36.6; O2SAT 97; BMI 32.3
--- NOTE | 2023-09-01 14:58 | ECG_ITS ---
Test Reason : med clearance Blood Pressure : / mmHG Vent. Rate : 073 BPM Atrial Rate : 073 BPM P-R Int : 176 ms QRS Dur : 082 ms QT Int : 396 ms P-R-T Axes : 033 -15 003 degrees QTc Int : 436 ms Normal sinus rhythm Minimal voltage criteria for LVH, may be normal variant ( R in aVL ) Nonspecific T wave abnormality Abnormal ECG When compared with ECG of 12-JUN-2023 14:12, No significant change was found Referred By: Guillermina Ramos Electronically Signed By:PHILLIP DIAZ
[2023-09-01 15:20] LABS: MANUAL DIFF FLAG NO
[2023-09-01 15:23] LABS: Basophils Absolute Auto 0.1 X10*3/uL (0.0-0.2); Basophils Percent Auto 0.8 % (0-2); Eosinophils Absolute Auto 0.2 X10*3/uL (0.0-0.4); Eosinophils Percent Auto 2.4 % (0-4); Hematocrit 34.9 % (37.0-47.0); Imm Gran Abs Auto 0.01 X10*3/uL (0.00-0.03); Imm Gran Pct Auto 0.2 % (0.0-0.4); Lymphocytes Absolute Auto 2.7 X10*3/uL (1.2-4.9); Lymphocytes Percent Auto 43.3 % (20-40); Mean Corpuscular HGB Conc 34.4 g/dl (31.0-35.0); Mean Corpuscular Hemoglobin 31.3 pg (27.0-33.0); Mean Corpuscular Volume 91.1 fL (80.0-98.0); Mean Platelet Volume 10.4 fL (9.4-12.3); Monocytes Absolute Auto 0.3 X10*3/uL (0.1-1.2); Neutrophils Percent Auto 48.3 % (45-73); Platelet Count 325 X10*3/uL (160-400); Red Blood Count 3.83 X10*6/uL (4.20-5.50); Red Cell Distribution Width 13.2 % (11.0-16.0); White Blood Count 6.2 X10*3/uL (4.8-10.8)
[2023-09-01 15:39] LABS: Alanine Aminotransferase 34 U/L (0-31); Albumin Level 4.2 g/dL (3.5-5.0); Alkaline Phosphatase 54 U/L (39-117); Anion Gap 11 (12-20); Aspartate Amino Transferase 30 U/L (5-31); Bilirubin Total 0.2 mg/dL (0.0-1.0); Blood Urea Nitrogen 16 mg/dL (9-16); Calcium 9.2 mg/dL (8.4-10.2); Carbon Dioxide 25 mmol/L (22-29); Chloride 107 mmol/L (96-108); Creatinine Clr Calc Pharmacy 69.5; Estimated Glomerular Filt Rate > 60; Ethanol < 10 mg/dL; Glucose Random 101 mg/dL (60-115); Potassium 3.9 mmol/L (3.3-5.1); Sodium 139 mmol/L (135-145); Total Protein 7.1 g/dL (6.5-8.0)
[2023-09-01 16:00] VITALS: RESP 16
[2023-09-01 16:15] LABS: COVID-19 Test Negative (Negative); IDNOW Serial# 08D9AD1C
[2023-09-01] MEDS: LORazepam 1 MG TABLET PO (16:34)
[2023-09-01 17:17] LABS: Appearance Urine Clear; Color Urine Yellow; Glucose Urine UA Negative (Negative); Leukocyte Esterase Urine Negative (Negative); Nitrite Urine Negative (Negative); PH 5.5 (5.0-9.0); Urine Blood Negative (Negative); Urine Ketones Negative (Negative); Urine Protein Negative (Neg-Trace)
[2023-09-01 17:24] LABS: Amphetamine Screen Urine Not Detected (Not Detect); Barbiturates, Urine Not Detected (Not Detect); Benzodiazepines Screen Urine Not Detected (Not Detect); Cannabinoid Screen Urine Not Detected (Not Detect); Cocaine Screen Urine Not Detected (Not Detect); Fentanyl, urine Not Detected (Not Detect); Opiate Screen Urine Not Detected (Not Detect); Phencyclidine Screen Urine Not Detected (Not Detect)
--- NOTE | 2023-09-01 17:53 | PC.NURSE ---
Pt present to the ER today because [facility] is unwilling to refill her Ativan prescription. Per patient she has been on Ativan for 19 years and the nurse practitioner at [facility] was unwilling to refill it. Pt reports that when she was inpatient, Dr. Solis provided her a prescription for Ativan for 30 days, which ran out in July. Pt reports she is having increased anxiety, blurry vision and feels like she needs to be put back on the medication. Pt reports there have been other various medication changes as well that she feels have not been beneficial. Pt is otherwise calm and cooperative, willing to engage in conversation without issue. Pt is aware of plan of care for medical clearance and then CARE team assessment
[2023-09-01] MEDS: QUEtiapine Fumarate 300 MG TABLET 600 MG PO (22:39)
[2023-09-01] MEDS: Pregabalin 200 MG CAPSULE PO (22:39)
[2023-09-01] MEDS: Famotidine 20 MG TABLET PO (22:39)
[2023-09-01] MEDS: Divalproex Sodium ER 500 MG TAB.ER.24H 1000 MG PO (22:39)
[2023-09-01] MEDS: Apixaban 2.5 MG TABLET PO (22:39)
[2023-09-01] MEDS: cloNIDine HCL 0.1 MG TABLET PO (23:21)
[2023-09-01] MEDS: Acetaminophen 325 MG TABLET 975 MG PO (23:22)
--- NOTE | 2023-09-01 23:32 | PC.NURSE ---
ciwa accidentally recorded on this patient but results for other patient
[2023-09-01 23:37] VITALS: BP 105/65; PULSE 77; RESP 15; TEMP 36.3; O2SAT 97
--- NOTE | 2023-09-02 02:20 | PC.NURSE ---
patient appears to remain asleep at present respirations are even and unlabored patient appears in no distress
[2023-09-02] MEDS: traZODone HCL 50 MG TABLET PO (03:28)
[2023-09-02 07:45] VITALS: BP 92/56; PULSE 68; RESP 20; TEMP 36.7; O2SAT 95
[2023-09-02] MEDS: Apixaban 2.5 MG TABLET PO (09:44)
[2023-09-02] MEDS: polyethylene glycoL 3350 17 GM POWD.PACK PO (09:44)
[2023-09-02] MEDS: Cholecalciferol (Vitamin D3) 25 MCG TABLET 125 MCG PO (09:44)
[2023-09-02] MEDS: Lidocaine 4 % Patch ADH..PATCH 2 PATCH TRANSDERMA (09:44)
[2023-09-02] MEDS: Omeprazole 20 MG CAPSULE.DR PO (09:44)
[2023-09-02] MEDS: Loratadine 10 MG TABLET PO (09:44)
[2023-09-02] MEDS: FLUoxetine HCl 10 MG CAPSULE 30 MG PO (09:44)
[2023-09-02] MEDS: Pregabalin 200 MG CAPSULE PO (09:44)
--- NOTE | 2023-09-02 10:20 | MHC.CARE ---
Robyn has been accepted to [facility], [address] [place] [id number] Billy is the accepting doctor, ETA is NICK.
--- NOTE | 2023-09-02 12:01 | PC.NURSE ---
Pt medicated per MAR, pt able to make needs known. Pt aware of plan of care for transfer to [facility]
[2023-09-02] MEDS: Acetaminophen 325 MG TABLET 650 MG PO (12:20)
[2023-09-02 13:42] VITALS: BP 130/74; PULSE 84; O2SAT 99
== END 2023-09-02 14:42 ==
PROVIDERS: Registered Nurse Emergency; Emergency Provider Emergency Medicine; PCP Registered Nurse Oncology
DX: F33.9 Major depressive disorder, recurrent, unspecified (principal); F41.9 Anxiety disorder, unspecified; D68.51 Activated protein C resistance; Z86.711 Personal history of pulmonary embolism; Z79.01 Long term (current) use of anticoagulants; Z79.899 Other long term (current) drug therapy; Z11.52 Encounter for screening for COVID-19
CPT/HCPCS: 80053; 80307; 81003; 85025; 87635; 93005; 99285; S9485

== ENCOUNTER → 2023-09-01 14:58 | Outpatient (BNV) | payer OTHER, SELFPAY | PROVIDERS: Emergency Provider Emergency Medicine; PCP Registered Nurse Oncology; Visit Provider Internal Medicine | DX: R94.31 Abnormal electrocardiogram [ECG] [EKG] (principal) | CPT/HCPCS: 93010 ==

== ENCOUNTER 2024-08-23 18:11 | Emergency (ER) | payer OTHER, SELFPAY ==
--- NOTE | ~2024-08-23 | CT_ITS ---
CLINICAL HISTORY: fall, on thinners CT head without contrast Comparison: None Findings: No intra-axial mass, midline shift, hydrocephalus, or acute hemorrhage. No significant atrophy-like change or white matter disease. The visualized paranasal sinuses and mastoid air cells are normal. The orbits are unremarkable. There is no acute fracture. IMPRESSION: 1. No acute intracranial findings. This document has been electronically signed by: Yanira Miller MD on 08/23/2024 20:11:16
--- NOTE | ~2024-08-23 | XR_ITS ---
CLINICAL HISTORY: fall, pain 2 view left knee Comparison: None Findings: Bones intact. No dislocations. No significant loss of joint space, osteophytes, or erosions. No joint effusion. No radiopaque foreign body. IMPRESSION: 1. No acute findings. This document has been electronically signed by: Payton Joshi MD on 08/23/2024 21:50:37
--- NOTE | ~2024-08-23 | XR_ITS ---
CLINICAL HISTORY: fall, pain 3 views lumbar spine Comparison: None Findings: Normal alignment. No acute fractures or dislocation. No significant degenerative change. Mild endplate osteophyte formation superior endplate L4. Moderate colonic stool. IMPRESSION: No acute findings. This document has been electronically signed by: Payton Joshi MD on 08/23/2024 21:49:25
--- NOTE | ~2024-08-23 | CT_ITS ---
CLINICAL HISTORY: fall, neck pain CT cervical spine without contrast Comparison: None Findings: Vertebral alignment is within normal limits. No significant degenerative change. No acute fractures or dislocations. Visualized intracranial contents are unremarkable. Soft tissues of the neck are normal. No consolidation or effusion at the lung apices. IMPRESSION: No acute findings. This document has been electronically signed by: Yanira Miller MD on 08/23/2024 20:01:40
[2024-08-23 18:33] VITALS: BP 112/84; BP 113/76; PULSE 85; PULSE 94; RESP 20; TEMP 36.7; O2SAT 95; O2SAT 98; BMI 29.5
--- NOTE | 2024-08-23 19:29 | ED_ITS ---
HPI - Fall General Chief Complaint: Fall Stated Complaint: L knee/back pain after fall yesterday,+thinners Time Seen by Provider: 08/23/24 18:51 Source: patient and EMS Mode of arrival: EMS Limitations: no limitations History of Present Illness ED Provider: Dr. Fannie Pat HPI Narrative: Patient comes via ambulance complaining of a fall. Patient fell yesterday afternoon. Patient states that she slipped on ice, landed on her knees. Patient did not hit her head or lost consciousness. Patient states that she is having neck pain, lower back pain, left knee pain. 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 Patient took Tylenol at home with no relief. Related Data Home Medications ?Medication ?Instructions ?Recorded ?Confirmed cetirizine 10 mg tablet 10 mg PO DAILY 03/26/23 03/03/24 cholecalciferol (vitamin D3) 125 125 mcg PO DAILY 03/26/23 03/03/24 mcg (5,000 unit) tablet (Vitamin D3) dicyclomine 10 mg capsule 10 mg PO TIDWM PRN Stomach Upset 03/26/23 03/03/24 famotidine 20 mg tablet 20 mg PO BEDTIME 03/26/23 03/03/24 lidocaine 5 % topical patch 2 patch topical Q12H 03/26/23 03/03/24 ondansetron 4 mg disintegrating 8 mg PO Q8H PRN nausea 03/26/23 03/03/24 tablet pantoprazole 40 mg tablet,delayed 40 mg PO QAM 03/26/23 03/03/24 release plecanatide 3 mg tablet (Trulance) 3 mg PO DAILY 03/26/23 03/03/24 pregabalin 200 mg capsule 200 mg PO TID 03/26/23 03/03/24 Previous Rx's ?Medication ?Instructions ?Recorded hydroxyzine HCl 25 mg tablet 25 mg PO Q4H PRN Anxiety 30 days 06/21/23 #90 tabs polyethylene glycol 3350 17 gram 17 g PO BID #0 ea 06/21/23 oral powder packet quetiapine 300 mg tablet 600 mg (2 x 300 mg) PO BEDTIME 30 06/21/23 days #60 tabs quetiapine 50 mg tablet See Rx Instructions .Route 06/21/23 .COMPLEX 30 days #90 tabs trazodone 50 mg tablet 50 mg PO BEDTIME PRN Insomnia 30 06/21/23 days #30 tabs clonidine HCl 0.1 mg tablet 0.1 mg PO TID PRN anxiety 30 days 07/24/23 #90 tabs divalproex 500 mg tablet,extended 1,000 mg (2 x 500 mg) PO BEDTIME 07/24/23 release 24 hr (Depakote ER) 30 days #60 tabs fluoxetine 10 mg capsule (Prozac) 30 mg (3 x 10 mg) PO DAILY 30 days 07/24/23 #90 caps metronidazole 0.75 % topical cream 1 appl topical DAILY 10 days #10 04/06/24 grams apixaban 2.5 mg tablet (Eliquis) 2.5 mg PO BID #60 tabs 05/25/24 tramadol 50 mg tablet 50 mg PO BID PRN pain #7 tabs 08/23/24 Allergies Allergy/AdvReac Type Severity Reaction Status Date / Time alprazolam [From XANAX] Allergy Unknown UNKNOWN Verified 08/23/24 18:38 carisoprodol [From SOMA] Allergy Unknown UNKNOWN Verified 08/23/24 18:38 cephalexin [From KEFLEX] Allergy Unknown UNKNOWN Verified 08/23/24 18:38 codeine [CODEINE] Allergy Unknown HIVES Verified 08/23/24 18:38 fluconazole [From DIFLUCAN] Allergy Unknown UNKNOWN Verified 08/23/24 18:38 ibuprofen [IBUPROFEN] Allergy Unknown UNKNOWN Verified 08/23/24 18:38 propoxyphene Allergy Unknown ITCHING Verified 08/23/24 18:38 [From DARVOCET-N 100] vancomycin [VANCOMYCIN] Allergy Unknown HIVES Verified 08/23/24 18:38 Review of Systems Review of Systems: Constitutional : No Weight loss, No Fever, No Chills, No Night Sweats, No Fatigue, No Malaise ENT/Mouth : No Hearing loss, No Ear Pain, No Nasal Congestion, No Sinus Pain, No Hoarseness, No sore throat, No Rhinorrhea, No Swallowing Difficulty Eyes: No Eye Pain, No Swelling, No Redness, No Foreign Body, No Discharge, No Vision Changes Cardiovascular : No Chest Pain, No SOB, No Dyspnea on Exertion, No Orthopnea, No Edema, No Palpitations Respiratory : No Cough, No Sputum, No Wheezing, No Smoke Exposure, No Dyspnea Gastrointestinal : No Nausea, No Vomiting, No Diarrhea, No Constipation, No abdominal Pain, No Hematochezia, No Melena Genitourinary : no irregular bleeding, No Dysuria, No Urinary Frequency, No Hematuria, No Urinary Incontinence, No Urgency, No Flank Pain, No Urinary Flow Changes, No Hesitancy Musculoskeletal : Complaining of neck pain, knee pain and lumbar spine pain, No Myalgias, No Joint Swelling Skin : No Skin Lesions, No rash Neuro : No Weakness, No Numbness, No Paresthesias, No Loss of Consciousness, No Dizziness, No Headache Psych : No Anxiety/Panic, No Depression, No SI/HI/AH/VH, No Social Issues, Heme/Lymph: No Bruising, No Bleeding,No Lymphadenopathy Endocrine : No Polyuria, No Polydipsia, No Temperature Intolerance [facility] Past Medical History Medical History Anxiety Dilatation, esophagus, congenital Factor V Leiden Family History Family History Father Throat cancer Social History Social History Household Members: Spouse Household Members Other:: Jerad Sanchez Housing: Apartment Do you presently have visiting nurse or other home services: No Alcohol intake: current Alcohol intake frequency: a few times a month Alcohol type: beer and hard liquor Patient Tobacco Use Status: Never used Tobacco e-Cigarette/Vaping Use: Never Used Second Hand Smoke Exposure: No Substance Use Type: Crack/Cocaine Advance Directives: No Advance Directives Information Provided: Yes service: No Current occupational status: disabled Sexual orientation: Straight/Heterosexual Physical Exam Vital Signs: Vital Signs: Last Vital Signs Temp 98.0 F 08/23/24 18:33 Pulse 85 08/23/24 18:33 Resp 20 08/23/24 18:33 BP 113/76 08/23/24 18:33 Pulse Ox 95 08/23/24 18:33 O2 Del Method Room Air 08/23/24 18:33 BMI result Body Mass Index 29.5 Const: Other: Appearance: Alert. Oriented X3. Tearful, anxious Eyes: Pupils equal, round and reactive to light. ENT: Pharynx normal. Neck: Normal inspection. Neck supple. No lymph nodes noted. No crepitus CVS: Normal heart rate and rhythm. Pulses normal. Normal S1 and S2 Respiratory: No respiratory distress. Breath sounds normal. No Wheezing. No rales Abdomen: Soft and nontender. No rigidity. No distention. Back: Pain to palpation over lower back and paraspinal muscles. No ecchymosis Skin: Skin warm and dry. Normal skin color. Normal skin turgor. No ecchymosis Extremities: No lower extremity edema. No Lacerations. No Rash, patient able to flex and extend the knee, no effusions, no ecchymosis, no erythema Neuro: Oriented X 3. No motor deficit. No sensory deficit. Moving all extremities. No slurred speech. CN 2 through 12 grossly intact Psych: Anxious and tearful Course Course Course Narrative: It has been over 24 hours since patient fell Patient getting p.o. tramadol and Ativan Patient's CT scans and x-rays pending Medications Administered Discontinued Medications Generic Name Dose Route Start Last Admin Trade Name Freq PRN Reason Stop Dose Admin Lorazepam 1 mg 08/23/24 20:24 08/23/24 20:50 Lorazepam 1 Mg Tablet PO 08/23/24 20:25 1 mg ONCE ONE Administration Oxycodone HCl 5 mg 08/23/24 20:15 08/23/24 20:50 Oxycodone Hcl Immed Release 5 Mg Tablet PO 08/23/24 20:16 5 mg ONCE ONE Administration Tramadol HCl 50 mg 08/23/24 19:00 08/23/24 19:42 Tramadol Hcl 50 Mg Tablet PO 08/23/24 19:01 50 mg ONCE ONE Administration Medical Decision Making Medical Decision Making [facility] Narrative: CT scan of the head and neck do not show any acute abnormality X-rays of the left knee and lumbar spine do not show any acute abnormality. Patient states that her knee hurts and is unwilling to try putting any weight on it. I re-evaluated the knee, there is no effusion, no ecchymosis. Patient noted to be very anxious despite receiving a dose of p.o. Ativan. Patient was provided with crutches Independent Interpretation I performed an independent interpretation of an: Plain X-Ray and CT Scan Radiology Impression Discussion of test interpretation with radiology: I have reviewed the radiologist's reading. Radiologist Impression: No intra-axial mass, midline shift, hydrocephalus, or acute hemorrhage. No significant atrophy-like change or white matter disease. The visualized paranasal sinuses and mastoid air cells are normal. The orbits are unremarkable. There is no acute fracture. Vertebral alignment is within normal limits. No significant degenerative change. No acute fractures or dislocations. Visualized intracranial contents are unremarkable. Soft tissues of the neck are normal. No consolidation or effusion at the lung apices. Normal alignment. No acute fractures or dislocation. No significant degenerative change. Mild endplate osteophyte formation superior endplate L4. Moderate colonic stool. Bones intact. No dislocations. No significant loss of joint space, osteophytes, or erosions. No joint effusion. No radiopaque foreign body. Discharge Plan Discharge Clinical Impression: Fall, Contusion Patient Disposition: Home, Self-Care Instructions: Contusion in Adults (ED) Additional Instructions: Please follow-up with your primary care physician tomorrow. If you have any worsening or new symptoms, please return to the emergency room or call 911 Prescriptions: New tramadol 50 mg tablet 50 mg PO BID PRN (Reason: pain) Qty: 7 0RF No Action cetirizine 10 mg tablet 10 mg PO DAILY famotidine 20 mg tablet 20 mg PO BEDTIME pantoprazole 40 mg tablet,delayed release (DR/EC) 40 mg PO QAM lidocaine 5 % adhesive patch,medicated 2 patch topical Q12H ondansetron 4 mg tablet,disintegrating 8 mg PO Q8H PRN (Reason: nausea) dicyclomine 10 mg capsule 10 mg PO TIDWM PRN (Reason: Stomach Upset) pregabalin 200 mg capsule 200 mg PO TID cholecalciferol (vitamin D3) [Vitamin D3] 125 mcg (5,000 unit) tablet 125 mcg PO DAILY Trulance 3 mg tablet 3 mg PO DAILY metronidazole 0.75 % Cream 1 appl TOPICAL DAILY 10 Days Qty: 10 4RF Rx Instructions: For vaginal application Eliquis 2.5 mg tablet 2.5 mg PO BID Qty: 60 4RF hydroxyzine HCl 25 mg Tablet 25 mg PO Q4H PRN (Reason: Anxiety) 30 Days Qty: 90 0RF trazodone 50 mg Tablet 50 mg PO BEDTIME PRN (Reason: Insomnia) 30 Days Qty: 30 0RF polyethylene glycol 3350 17 gram Powder In Packet 17 g PO BID Qty: 0 0RF quetiapine 300 mg tablet 600 mg PO BEDTIME 30 Days Qty: 60 0RF quetiapine 50 mg Tablet See Rx Instructions .ROUTE .COMPLEX 30 Days Qty: 90 0RF Rx Instructions: Take 1-2 tablets up to 3 times a day as needed for anxiety divalproex [Depakote ER] 500 mg tablet extended release 24 hr 1,000 mg PO BEDTIME 30 Days Qty: 60 0RF fluoxetine [Prozac] 10 mg capsule 30 mg PO DAILY 30 Days Qty: 90 0RF clonidine HCl 0.1 mg tablet 0.1 mg PO TID PRN (Reason: anxiety) 30 Days Qty: 90 0RF Print Language: Arabic
[2024-08-23] MEDS: traMADoL HCL 50 MG TABLET PO (19:42)
[2024-08-23] MEDS: LORazepam 1 MG TABLET PO (20:50)
[2024-08-23] MEDS: oxyCODONE HCl Immed Release 5 MG TABLET PO ×2 (20:50→23:24)
[2024-08-23 23:29] VITALS: BP 120/84; PULSE 112; RESP 18; TEMP 36.5; O2SAT 97
[2024-08-23 23:55] VITALS: BP 113/76; PULSE 85; RESP 20; TEMP 36.7; O2SAT 95
== END 2024-08-23 23:56 | disposition home or self-care (01) ==
PROVIDERS: Emergency Provider Emergency Medicine; PCP Registered Nurse Oncology
DX: S80.02XA Contusion of left knee, initial encounter (principal); W00.0XXA Fall on same level due to ice and snow, initial encounter; M54.2 Cervicalgia; M54.50 Low back pain, unspecified; M25.562 Pain in left knee; F41.9 Anxiety disorder, unspecified; Z86.718 Personal history of other venous thrombosis and embolism; Z79.01 Long term (current) use of anticoagulants; Z79.899 Other long term (current) drug therapy; Y93.9 Activity, unspecified; Y92.9 Unspecified place or not applicable; Y99.9 Unspecified external cause status
CPT/HCPCS: 70450; 72100; 72125; 73560; 99284

== ENCOUNTER → 2024-08-23 19:00 | Outpatient (BNV) | payer OTHER, SELFPAY | PROVIDERS: Emergency Provider Emergency Medicine; PCP Registered Nurse Oncology; Visit Provider Radiology Diagnostic Radiology | DX: M54.2 Cervicalgia (principal); S09.90XA Unspecified injury of head, initial encounter; M25.562 Pain in left knee; S39.92XA Unspecified injury of lower back, initial encounter | CPT/HCPCS: 70450; 72100; 72125; 73560 ==

== ENCOUNTER 2025-03-22 11:00 | Outpatient (RCR) | payer OTHER, SELFPAY | END 2025-05-02 10:25 | disposition home or self-care (01) | LOC: HO.PT 11:00 | PROVIDERS: PCP Registered Nurse Oncology; Visit Provider Nurse Practitioner Family | DX: N81.84 Pelvic muscle wasting (principal) | CPT/HCPCS: 97110; 97112; 97140; 97162 ==